=== PATIENT | female | born 1980 | race Caucasian/White ===

== ENCOUNTER 2020-02-28 13:12 | Emergency (ER) | payer OTHER, SELFPAY ==
[2020-02-28 13:22] VITALS: BP 123/79; PULSE 119; RESP 24; TEMP 37.2; O2SAT 97
[2020-02-28 14:05] LABS: Basophils Absolute Auto 0.03 K/mm3 (0.00-0.10); Basophils Percent Auto 0.4 % (0.0-1.0); Eosinophils Absolute Auto 0.18 K/mm3 (0.02-0.50); Eosinophils Percent Auto 2.6 % (1.0-6.0); Hematocrit 30.4 % (35.0-49.0); Hemoglobin 10.1 g/dL (12.0-15.0); Immature Granulocyte Absolute 0.01 K/mm3 (0.00-0.00); Immature Granulocyte Percent A 0.1 % (0.0-0.0); Lymphocytes Absolute Auto 3.23 K/mm3 (1.10-4.50); Lymphocytes Percent Auto 47.3 % (18.0-42.0); Mean Corpuscular HGB Conc 33.2 g/dL (32.0-36.0); Mean Corpuscular Hemoglobin 27.7 pg (27.0-31.0); Mean Corpuscular Volume 83.5 fL (78.0-102.0); Mean Platelet Volume 8.5 fl (9.2-11.8); Monocytes Percent Auto 7.3 % (2.0-11.0); Neutrophils Absolute Auto 2.9 K/mm3 (1.7-7.2); Neutrophils Percent Auto 42.3 % (50.0-70.0); Platelet Count Result 182 K/mm3 (150-420); Red Blood Count 3.64 M/mm3 (4.20-5.40); Red Cell Distribution Width 14.5 % (11.6-14.4); White Blood Count 6.8 K/mm3 (4.8-10.8)
[2020-02-28 14:30] LABS: Acetaminophen 2 ug/mL (10-30); Alanine Aminotransferase 24 U/L (14-59); Albumin Level 3.2 g/dL (3.4-5.0); Alkaline Phosphatase 63 U/L (46-116); Anion Gap 13.7 mmol/L (7-16); Aspartate Amino Transferase 30 U/L (15-37); Bilirubin,Total < 0.1 mg/dL (0.00-1.00); Blood Urea Nitrogen 11 mg/dL (7-18); Calcium 8.2 mg/dL (8.5-10.1); Carbon Dioxide 25 mmol/L (21-32); Chloride 106 mmol/L (98-108); Estimated Glomerular Filt Rate > 60; Ethanol < 3 mg/dL (0-6); Glucose 86 mg/dL (70-99); Osmolality Calculated 290 mOsm/kg (285-295); Potassium 3.7 mmol/L (3.5-5.1); Salicylate 0.8 mg/dL (2.8-20.0); Sodium 141 mmol/L (136-145); Thyroid Stimulating Hormone 1.79 uIU/mL (0.36-3.74); Total Protein 6.8 g/dL (6.4-8.2)
--- NOTE | 2020-02-28 14:32 | PC.NURSE ---
THIS RN IN TO ROOM TO SEE ABOUT COLLECTING URINE. PT TAKES TWO ASSIST TO AMBULATE. CONTINUES TO DENY DRUG USE, BUT FALLS ASLEEP WHILE STANDING.
[2020-02-28 14:46] LABS: Add Urine Microscopic? YES; Appearance Urine Sl Cloudy (Clear); Bilirubin Urine Negative (Negative); Blood Urine 1+ (Negative); Color Urine Yellow (Yellow); Glucose Urine UA Negative (Negative); Ketones Urine Negative (Negative); Leukocyte Esterase Ur 2+ LEU/UL (Negative); Nitrate Urine Negative (Negative); Protein Urine Negative (Negative); Urobilinogen Urine 0.2 mg/dL (0.2-1.0); pH Urine 5.5 (5.0-8.0)
--- NOTE | 2020-02-28 14:46 | PC.NURSE ---
PT OUT IN HALLWAY STATING THAT SHE WANTS TO LEAVE. PT ASKS FOR A SANDWICH TO EAT. ERP AT BEDSIDE TO TALK WITH PATIENT AGAIN, PT STATES THAT SHE IS NOT AFRAID OF FALLING AND THAT SHE WILL LEAVE AND GO STAY WITH A FRIEND. PT CONTINUES TO DENY SI/HI
[2020-02-28 14:52] LABS: Mucus Urine Moderate /lpf; RBC Urine 0-2 /hpf (0-2); Squamous Epithelial Cell Urine Moderate /hpf (Few)
[2020-02-28 14:53] LABS: Amphetamine Screen Urine Positive (Negative); Bacteria Urine 2+ /hpf; Barbiturate Screen Urine Positive (Negative); Benzodiazepines Screen Urine Negative (Negative); Cannabinoid Screen Urine Negative (Negative); Cocaine Screen Urine Negative (Negative); Methadone Screen Urine Negative (Negative); Opiate Screen Urine Positive (Negative); Phencyclidine Screen Urine Negative (Negative)
--- NOTE | 2020-02-28 15:13 | ED.PSYCH ---
HPI - Psych General Chief Complaint: Psychiatric Symptoms Stated Complaint: ambulance Source: patient Mode of arrival: ambulatory Limitations: clinical condition History of Present Illness HPI Narrative: Nurse's note reviewed. Mother wants pt. evaluated; unusual behavior. Wondering if she's on LSD. On initial interview pt. sitting up, nods off to sleep in mid-sentence, easily awoken by repeating the question. Initially starts to answer question but then rapidly talks about unrelated things before nodding off after 15 - 20 seconds. It's as if she's dropping off into a dream state. States she's very tired....couldn't sleep last night. States she got in an argument with her mother this AM. The police came. She was not arrested. Pt denies taking LSD or drugs. Released from long-term 2 days ago. Denies thoughts of suicide. Pt. states she sees people that aren't there. History of same: No Related Data Home Medications Medication Instructions Recorded Confirmed carisoprodol 350 mg PO TID 02/28/20 02/28/20 Allergies Allergy/AdvReac Type Severity Reaction Status Date / Time trazodone Allergy Intermediate hives, Unverified 01/23/19 11:11 breathing, makes her mean! propoxyphene Allergy Mild N/V, hives Unverified 01/23/19 11:11 buspirone Allergy Unknown Verified 02/27/18 16:17 celecoxib Allergy Unknown hives, n/v Verified 01/23/19 11:11 cyclobenzaprine Allergy Unknown Verified 02/27/18 16:18 divalproex sodium Allergy Unknown Discomfort Verified 08/11/19 15:30 erythromycin base Allergy Unknown Verified 08/11/19 15:30 gabapentin Allergy Unknown Verified 12/31/17 16:04 haloperidol Allergy Unknown Verified 08/11/19 15:30 hydroxyzine Allergy Unknown Verified 08/11/19 15:30 ibuprofen Allergy Unknown Rash Verified 08/11/19 15:30 ketorolac Allergy Unknown Verified 02/27/18 16:19 latex Allergy Unknown Verified 01/13/15 13:41 levetiracetam Allergy Unknown rash Verified 08/11/19 15:30 (moderate) metaxalone Allergy Unknown break out, Verified 01/23/19 11:11 cannot breathe nalbuphine Allergy Unknown Rash Verified 08/11/19 15:30 naproxen Allergy Unknown Rash Verified 08/11/19 15:30 NSAIDS (Non-Steroidal Allergy Unknown Rash Verified 08/11/19 15:30 Anti-Inflamma risperidone Allergy Unknown Confusion Verified 08/11/19 15:30 (moderate) sulfamethizole Allergy Unknown yeast Verified 08/11/19 15:30 infection (mild) sumatriptan Allergy Unknown hives Unverified 01/23/19 11:11 tramadol Allergy Unknown Verified 07/16/18 16:20 trimethoprim Allergy Unknown yeast Verified 08/11/19 15:30 infection (mild) diclofenac AdvReac Mild GI UPSET Unverified 01/23/19 11:11 lisinopril AdvReac Mild COUGHING Unverified 01/23/19 11:11 ondansetron AdvReac Mild sob Unverified 01/23/19 11:11 HYDROXYZINE PAMOATE Allergy Unknown throat Uncoded 01/23/19 11:11 swells shut Review of Systems Review of Systems: ROS unobtainable: Yes unobtainable due to mental status (Pt falling asleep, agitated with questioning. ) Constitutional: Constitutional: Denies chills and Denies fever(s) PMFSH Past Medical History Medical History Anxiety disorder, unspecified Bipolar depression DVT (deep venous thrombosis) Encephalopathy probably due to drug overdose. Fibromyalgia Finger fracture, right Multiple sclerosis Surgical History Surgical History Hx of cholecystectomy Family History Family History Sibling Hypertension Grandparent Cerebrovascular accident Family history of malignant neoplasm of breast Other Diabetes mellitus Family history of arthritis Family history of malignant neoplasm Family history of multiple sclerosis Social History Social History Smoking status: Jhonatan
== END 2020-02-28 15:20 | disposition left against medical advice (07) ==
PROVIDERS: Emergency Provider Family Medicine
DX: F19.959 Other psychoactive substance use, unspecified with psychoactive substance-induced psychotic disorder, unspecified (principal); R44.3 Hallucinations, unspecified; Z72.820 Sleep deprivation
CPT/HCPCS: 36415; 80053; 80307; 81001; 84443; 85025; 87077; 87086; 87088; 99283

== ENCOUNTER 2020-02-29 20:46 | Emergency (ER) | payer OTHER, SELFPAY ==
[2020-02-29 21:01] VITALS: BP 140/55; PULSE 94; RESP 14; TEMP 36.1; O2SAT 99
--- NOTE | 2020-02-29 21:34 | ED.LOWEXIN ---
HPI - Extremity Injury (Lower) General Chief Complaint: Extremity Injury, Lower Stated Complaint: pain in left leg Source: patient Mode of arrival: ambulatory Limitations: no limitations History of Present Illness HPI Narrative: this is a 39-year-old female presents with some pain in her right posterior upper thigh with a small punctate lesion with a surrounding area of erythema that is warm red and tender to touch, patient does have a history of DVT /PE and currently on Eliquis. There is a well-demarcated area of redness around the posterior right upper thigh. Currently the patient is afebrile with some pain in the posterior thigh has a history of chronic narcotic abuse. Onset (ago): day(s) Injury: Right: thigh ( Warmth and tenderness with erythema) Severity: moderate Severity scale (1-10): 6 Relieving factors: nothing Exacerbating factors: nothing Related Data Home Medications Medication Instructions Recorded Confirmed carisoprodol 350 mg PO TID 02/28/20 02/29/20 Allergies Allergy/AdvReac Type Severity Reaction Status Date / Time trazodone Allergy Intermediate hives, Unverified 01/23/19 11:11 breathing, makes her mean! propoxyphene Allergy Mild N/V, hives Unverified 01/23/19 11:11 buspirone Allergy Unknown Verified 02/27/18 16:17 celecoxib Allergy Unknown hives, n/v Verified 01/23/19 11:11 cyclobenzaprine Allergy Unknown Verified 02/27/18 16:18 divalproex sodium Allergy Unknown Discomfort Verified 08/11/19 15:30 erythromycin base Allergy Unknown Verified 08/11/19 15:30 gabapentin Allergy Unknown Verified 12/31/17 16:04 haloperidol Allergy Unknown Verified 08/11/19 15:30 hydroxyzine Allergy Unknown Verified 08/11/19 15:30 ibuprofen Allergy Unknown Rash Verified 08/11/19 15:30 ketorolac Allergy Unknown Verified 02/27/18 16:19 latex Allergy Unknown Verified 01/13/15 13:41 levetiracetam Allergy Unknown rash Verified 08/11/19 15:30 (moderate) metaxalone Allergy Unknown break out, Verified 01/23/19 11:11 cannot breathe nalbuphine Allergy Unknown Rash Verified 08/11/19 15:30 naproxen Allergy Unknown Rash Verified 08/11/19 15:30 NSAIDS (Non-Steroidal Allergy Unknown Rash Verified 08/11/19 15:30 Anti-Inflamma risperidone Allergy Unknown Confusion Verified 08/11/19 15:30 (moderate) sulfamethizole Allergy Unknown yeast Verified 08/11/19 15:30 infection (mild) sumatriptan Allergy Unknown hives Unverified 01/23/19 11:11 tramadol Allergy Unknown Verified 07/16/18 16:20 trimethoprim Allergy Unknown yeast Verified 08/11/19 15:30 infection (mild) diclofenac AdvReac Mild GI UPSET Unverified 01/23/19 11:11 lisinopril AdvReac Mild COUGHING Unverified 01/23/19 11:11 ondansetron AdvReac Mild sob Unverified 01/23/19 11:11 HYDROXYZINE PAMOATE Allergy Unknown throat Uncoded 01/23/19 11:11 swells shut Review of Systems Review of Systems: All systems reviewed & are unremarkable except as noted in HPI and below PMFSH Past Medical History Medical History Anxiety disorder, unspecified Bipolar depression DVT (deep venous thrombosis) Encephalopathy probably due to drug overdose. Fibromyalgia Finger fracture, right Multiple sclerosis Surgical History Surgical History Hx of cholecystectomy Family History Family History Sibling Hypertension Grandparent Cerebrovascular accident Family history of malignant neoplasm of breast Other Diabetes mellitus Family history of arthritis Family history of malignant neoplasm Family history of multiple sclerosis Social History Social History Smoking status: Current every day smoker Alcohol intake: current Exam Const: General: no acute distress and alert Orientation/consciousn
[2020-02-29] MEDS: KETOROLAC (*BKC) 60 MG/2 ML VIAL IM (21:40)
[2020-02-29] MEDS: LIDOCAINE HCL 1% LOCAL INJ 20 ML VIAL (21:54)
[2020-02-29] MEDS: cefTRIAXone 1 GM VIAL IM (21:54)
[2020-02-29 21:59] VITALS: RESP 14; O2SAT 100
== END 2020-02-29 22:00 | disposition home or self-care (01) ==
PROVIDERS: Emergency Provider Emergency Medicine; PCP Internal Medicine
DX: L03.115 Cellulitis of right lower limb (principal)
CPT/HCPCS: 96372; 99283; 99284; J0696; J1885

== ENCOUNTER 2020-04-16 21:42 | Emergency (ER) | payer OTHER, SELFPAY ==
--- NOTE | ~2020-04-16 | CT_ITS ---
EXAMINATION: CTA chest PE protocol DATE: 04/17/2020 08:50 CDT INDICATION: Calf pain. Shortness of breath. Positive d-dimer study. TECHNIQUE: Computed tomographic angiography (CTA) of the chest was performed with 100 mL Omnipaque-35 0 intravenous contrast. The dose-length product was 328.93 mGy-cm. Maximum intensity projection 3D-re constructions of the aorta and other arteries were constructed by the technologist on a separate work station. Automated exposure control and iterative reconstruction technique were employed. COMPARISON: CT dated 04/26/2019 FINDINGS: Study is limited due to suboptimal opacification of the pulmonary arteries. No definite lar ge central pulmonary embolism. Smaller peripheral pulmonary embolism cannot be excluded. No significa nt pleural or pericardial effusion. Heart size normal. No evidence for aortic aneurysm or dissection. No thoracic lymphadenopathy. No focal airspace consolidation. There is dependent atelectasis. No end obronchial lesions. There is mild thickening of the distal esophagus, suspicious for esophagitis. IMPRESSION: 1. Mild thickening of the distal esophagus, suspicious for esophagitis. 2: No evidence for pulmonary embolism or acute cardiopulmonary disease. Reviewed, dictated and finalized at location A.
[2020-04-16 22:05] VITALS: BP 113/69; PULSE 95; RESP 20; TEMP 37.5; O2SAT 100
--- NOTE | 2020-04-16 22:26 | ED.EXTPRO ---
HPI - Extremity Problem General Chief complaint: Extremity Problem,Nontraumatic Stated complaint: knee swelling/pain Time Seen by Provider: 04/16/20 22:10 Source: patient Mode of arrival: ambulatory Limitations: no limitations History of Present Illness HPI Narrative: 39-year-old woman with a history of chronic and frequent pain complaints comes to the ER today complaining of right calf pain. She states it started on waking this morning. She states that she has also been feeling short of breath and had a mild cough. She denies fever. She states the pain is so severe that she has been having vomiting. She states that she has had a DVT and pulmonary emboli in the past and was prescribed Eliquis however she has not taken it for months. Patient states that she has not received approval from her insurance company as of yet for Eliquis. She states that she cannot take warfarin and Xarelto. On further interview patient revealed that she takes Fioricet with codeine 4 times a day in addition to Tylenol. MD Complaint: extremity pain Onset (ago): hour(s) (12+) Pain Consistency: constant Location: right and lower extremity Severity scale (1-10): >10 Radiation: none Relieving factors: nothing and other ( She states she is taking so much tylenol she is afraid she is going to injure her liver.) Exacerbating factors: weight bearing and palpation Associated symptoms: chest pain and shortness of breath Context: history of DVT Related Data Home Medications Medication Instructions Recorded Confirmed amitriptyline 150 mg tablet 300 mg PO DAILY tablet 04/07/20 04/16/20 Allergies Allergy/AdvReac Type Severity Reaction Status Date / Time trazodone Allergy Intermediate hives, Unverified 01/23/19 11:11 breathing, makes her mean! propoxyphene Allergy Mild N/V, hives Unverified 01/23/19 11:11 buspirone Allergy Unknown Difficulty Verified 04/17/20 00:44 Breathing celecoxib Allergy Unknown hives, n/v Verified 01/23/19 11:11 cyclobenzaprine Allergy Unknown Dizziness Verified 04/17/20 00:44 divalproex sodium Allergy Unknown Discomfort Verified 08/11/19 15:30 erythromycin base Allergy Unknown Unknown Verified 04/17/20 00:44 gabapentin Allergy Unknown Other Verified 04/17/20 00:44 haloperidol Allergy Unknown Unknown Verified 04/17/20 00:44 hydroxyzine Allergy Unknown Unknown Verified 04/17/20 00:44 ibuprofen Allergy Unknown Rash Verified 08/11/19 15:30 ketorolac Allergy Unknown Rash Verified 04/17/20 00:44 latex Allergy Unknown Unknown Verified 04/17/20 00:44 levetiracetam Allergy Unknown rash Verified 08/11/19 15:30 (moderate) metaxalone Allergy Unknown break out, Verified 01/23/19 11:11 cannot breathe nalbuphine Allergy Unknown Rash Verified 08/11/19 15:30 naproxen Allergy Unknown Rash Verified 08/11/19 15:30 NSAIDS (Non-Steroidal Allergy Unknown Rash Verified 08/11/19 15:30 Anti-Inflamma risperidone Allergy Unknown Confusion Verified 08/11/19 15:30 (moderate) sulfamethizole Allergy Unknown yeast Verified 08/11/19 15:30 infection (mild) sumatriptan Allergy Unknown hives Unverified 01/23/19 11:11 tramadol Allergy Unknown Unknown Verified 04/17/20 00:44 trimethoprim Allergy Unknown yeast Verified 08/11/19 15:30 infection (mild) diclofenac AdvReac Mild GI UPSET Unverified 01/23/19 11:11 lisinopril AdvReac Mild COUGHING Unverified 01/23/19 11:11 ondansetron AdvReac Mild sob Unverified 01/23/19 11:11 HYDROXYZINE PAMOATE Allergy Unknown throat Uncoded 01/23/19 11:11 swells shut Review of Systems Constitutional: Constitutional: Denies chills, Denies fever(s) and Denies weakness ENT: Denies dysphagia, Denies nasal congestion and Denies sore throat Cardiovascular: Cardiovascular: Reports chest pain and Denies radiating jaw, neck or arm pain Respiratory: Respiratory: Reports cough, Reports dyspnea and Denies wheezing Gastrointestinal: Gastrointestinal: Reports abdominal pa
[2020-04-16] MEDS: PROMETHAZINE HCL 25 MG/ML AMPUL IM (22:27)
[2020-04-16] MEDS: KETOROLAC (*BKC) 60 MG/2 ML VIAL IM (22:27)
[2020-04-16 22:38] LABS: Basophils Absolute Auto 0.03 K/mm3 (0.00-0.10); Basophils Percent Auto 0.4 % (0.0-1.0); Eosinophils Absolute Auto 0.38 K/mm3 (0.02-0.50); Eosinophils Percent Auto 4.4 % (1.0-6.0); Hematocrit 30.1 % (35.0-49.0); Hemoglobin 9.8 g/dL (12.0-15.0); Immature Granulocyte Absolute 0.03 K/mm3 (0.00-0.00); Immature Granulocyte Percent A 0.4 % (0.0-0.0); Lymphocytes Absolute Auto 3.02 K/mm3 (1.10-4.50); Lymphocytes Percent Auto 35.4 % (18.0-42.0); Mean Corpuscular HGB Conc 32.6 g/dL (32.0-36.0); Mean Corpuscular Hemoglobin 27.7 pg (27.0-31.0); Mean Platelet Volume 9.1 fl (9.2-11.8); Monocytes Absolute Auto 0.58 K/mm3 (0.10-0.90); Monocytes Percent Auto 6.8 % (2.0-11.0); Neutrophils Absolute Auto 4.5 K/mm3 (1.7-7.2); Neutrophils Percent Auto 52.6 % (50.0-70.0); Platelet Count Result 203 K/mm3 (150-420); Red Blood Count 3.54 M/mm3 (4.20-5.40); Red Cell Distribution Width 14.8 % (11.6-14.4); White Blood Count 8.5 K/mm3 (4.8-10.8)
[2020-04-16 22:55] VITALS: BP 120/60; PULSE 70; RESP 18
[2020-04-16 22:56] VITALS: O2SAT 100
[2020-04-16 22:57] LABS: Acetaminophen 11 ug/mL (10-30); Alanine Aminotransferase 49 U/L (14-59); Alkaline Phosphatase 82 U/L (46-116); Anion Gap 12.3 mmol/L (7-16); Aspartate Amino Transferase 15 U/L (15-37); Blood Urea Nitrogen 9 mg/dL (7-18); Calcium 8.2 mg/dL (8.5-10.1); Carbon Dioxide 25 mmol/L (21-32); Chloride 103 mmol/L (98-108); D Dimer 1.42 mg/L (0.19-0.50); Estimated Glomerular Filt Rate > 60; Glucose 112 mg/dL (70-99); Osmolality Calculated 283 mOsm/kg (285-295); Potassium 3.3 mmol/L (3.5-5.1); Sodium 137 mmol/L (136-145); Total Protein 6.9 g/dL (6.4-8.2)
[2020-04-16 23:08] LABS: Bilirubin,Total < 0.1 mg/dL (0.00-1.00)
--- NOTE | 2020-04-16 23:23 | PC.NURSE ---
patient requesting some food & Pepsi, patient started cussing when explained she couldn't until test were completed with having a potential blood clot. Offered for patient to sign out AMA and go to another hospital. Patient very belligerent. Nurse requested urine, patient cussing & screaming at staff I don't feel good and you don't care. I am hungry & you don't care. I am not and I have had a tubal, I think this is BS,
--- NOTE | 2020-04-16 23:30 | PC.NURSE ---
Staff trying IV, patient screaming moving during stick, states I am scared of needles, I want Rod to do it. Explain production underwriter or Sabina only available. Corn Cooker got #20 inserted, patient screaming it hurts take it out, take it out. IV removed, Sabina working with patient
[2020-04-16 23:39] LABS: Add Urine Microscopic? YES; Appearance Urine Sl Cloudy (Clear); Bilirubin Urine Negative (Negative); Blood Urine Negative (Negative); Color Urine Yellow (Yellow); Glucose Urine UA Negative (Negative); Ketones Urine Negative (Negative); Leukocyte Esterase Ur 1+ (Negative); Nitrate Urine Negative (Negative); Protein Urine Negative (Negative); Specific Grav Ur 1.015 (1.010-1.020); Urobilinogen Urine 0.2 mg/dL (0.2-1.0)
[2020-04-16 23:49] LABS: Urine Pregnancy Test Negative
[2020-04-16 23:50] LABS: Pregnancy On Board Control Positive; Specific Gravity Ur 1.015 (1.010-1.035)
[2020-04-16 23:50] LABS: Bacteria Urine 1+ /hpf; RBC Urine 0-2 /hpf (0-2); Squamous Epithelial Cell Urine Many /hpf (Few)
[2020-04-16 23:53] LABS: Amphetamine Screen Urine Negative (Negative); Barbiturate Screen Urine Positive (Negative); Benzodiazepines Screen Urine Negative (Negative); Cannabinoid Screen Urine Positive (Negative); Cocaine Screen Urine Negative (Negative); Methadone Screen Urine Negative (Negative); Opiate Screen Urine Positive (Negative); Phencyclidine Screen Urine Negative (Negative)
[2020-04-17] VITALS (12 sets, daily range): BP systolic 96–135; BP diastolic 45–77; PULSE 66–90; RESP 16–18; TEMP 36.4–37.1; O2SAT 95–100
[2020-04-17] MEDS: SODIUM CHLORIDE 0.9% IV 1,000 ML 999 ML IV CONT (00:17)
--- NOTE | 2020-04-17 00:48 | PC.NURSE ---
patient on cell phone laughing and talking to her boyfriend
--- NOTE | 2020-04-17 00:51 | PC.NURSE ---
results here, calling [facility] for possible tranfer
--- NOTE | 2020-04-17 00:53 | ECG_ITS ---
Measurements Intervals Crowder Rate: 84 P: 46 AL: 144 QRS: 29 QRSD: 84 T: 30 QT: 362 QTc: 428 Interpretive Statements SINUS RHYTHM LOW QRS VOLTAGE IN PRECORDIAL LEADS BASELINE ARTIFACT- I, II, III BORDERLINE ECG Electronically Signed On 04-18-2020 8:15:01 CDT by Hilton Madden D.O.
--- NOTE | 2020-04-17 01:02 | PC.NURSE ---
EKG collected, patient requesting dilaudid for pain & supper
[2020-04-17 01:10] LABS: Partial Thromboplastin Time 24.5 SEC (22.3-31.6)
--- NOTE | 2020-04-17 01:10 | PC.NURSE ---
speaking to [facility]
[2020-04-17] MEDS: ENOXAPARIN 100 MG/ML SYRINGE 70 MG SUB-Q ×2 (01:21→13:55)
[2020-04-17] MEDS: HYDROMORPHONE HCL 2 MG/ML VIAL 0.5 MG IV PUSH ×2 (01:22→14:42)
--- NOTE | 2020-04-17 01:46 | PC.NURSE ---
lovenox 70mg sub given RLQ abd Dilaudid 0.5mg IVP given in RAC
--- NOTE | 2020-04-17 01:58 | PC.NURSE ---
eating turkey sandwich, chips & drinking pepsi. On cell phone talking & laughing
--- NOTE | 2020-04-17 02:42 | PC.NURSE ---
patient walked out of ER, typewriter mechanic told her she couldn't leave. states I have marijuana I need to give my family
--- NOTE | 2020-04-17 02:49 | PC.NURSE ---
security notified of patient walking out to car to see family, to do parking lot check
--- NOTE | 2020-04-17 02:59 | PC.NURSE ---
patient return to ER room 3. [facility] called for a bed will be hours before one available
--- NOTE | 2020-04-17 08:27 | PC.NURSE ---
patient resting quietly, cont to wait for bed at [facility]. Placing patient on med/surg in ER Hold, report given to 2nd floor. Patient eating breakfast
--- NOTE | 2020-04-17 09:00 | PC.NURSE ---
ate 20% of breakfast, drinking pepsi
--- NOTE | 2020-04-17 09:15 | PC.NURSE ---
Patient brought up to floor from ER as ER hold via wheelchair by this nurse. Patient able to transferred from wheelchair to bed with no assist. Resting with hob elevated. Patient finished breakfast in ER. Denies any need at present. Call light and belongings provided. Call marroquin at side.
--- NOTE | 2020-04-17 11:30 | PC.NURSE ---
Patient sleeping soundly in bed with hob elevated. shows no signs of pain or distress. Call light at side.
--- NOTE | 2020-04-17 12:15 | PC.NURSE ---
Lunch tray delivered. Patient sleeping quietly in bed. Call light at side. No distress noted.
--- NOTE | 2020-04-17 12:45 | PC.NURSE ---
Patient ate 10% of lunch, States she is just not hungry. Drank 360ml P.O. Resting quietly in bed on left side, hob elevated. Denies any needs at present.
--- NOTE | 2020-04-17 16:00 | PC.NURSE ---
Patient noted to have left floor to smoke. Pt. outside of physical therapy entrance. This nurse bought patient back inside. Non-smoking policy reiterated to patient. Patient states she is sorry, she didn't realize she could not go outside. This nurse notified patient if she was to leave floor again without permission it would be considered an AMA. DR. Whelan notified of patient leaving floor. Patient states understanding and states it will not happen again. Patient offered nicotine patch, declined at this time.
[2020-04-17] MEDS: HYDROCORTISONE 1% 30 GM CREAM 1 APPLIC TOPICAL (17:14)
[2020-04-17] MEDS: CALCIUM CARBONATE (TUMS) 500 MG (200 MG ELEMENTAL) PO (17:14)
--- NOTE | 2020-04-17 17:40 | PC.NURSE ---
Patient ate 25% of supper. Resting in bed with hob elevated. Call light at side. Patient stating foot is hurting again, requesting more pain medication. MD notified.
--- NOTE | 2020-04-17 18:00 | PC.NURSE ---
Patient provided with items to shower. IV site covered. Patient required no assist to shower.
--- NOTE | 2020-04-17 20:02 | PC.NURSE ---
pt is in tears stating the pain medication she received was not helping, Dr Whelan informed and no new orders given
--- NOTE | 2020-04-17 21:12 | PC.NURSE ---
pt made aware of Dr decision to not change pain medication, pt agreed with decision
--- NOTE | 2020-04-17 22:14 | PC.NURSE ---
pt given sandwich, fruit cup, and cottage cheese, denies any other needs at this time
--- NOTE | 2020-04-17 23:55 | PC.NURSE ---
Berna from [facility] called with bed for pt and number to give report.
[2020-04-18] VITALS: BP 100/60; PULSE 78; RESP 20; TEMP 36.8; O2SAT 97
--- NOTE | 2020-04-18 | PC.NURSE ---
Report called to Mariah at [facility]
--- NOTE | 2020-04-18 00:15 | PC.NURSE ---
Call placed to [place] [employer] to page out ambulance for transfer.
--- NOTE | 2020-04-18 00:45 | PC.NURSE ---
pt ambulated to ems stretcher, discharged in stable condition via [facility]
--- NOTE | 2020-04-18 00:49 | PC.NURSE ---
[id number] Dr. Whelan notified of pt's request for her amitriptyline as she said she cant sleep without it. Orders received and noted.
[2020-04-18 00:54] VITALS: BP 100/60; PULSE 78; RESP 20; TEMP 36.8; O2SAT 97
== END 2020-04-18 00:45 | disposition short-term general hospital (02) ==
PROVIDERS: Emergency Medicine; Emergency Provider Family Medicine; PCP Internal Medicine
DX: R06.00 Dyspnea, unspecified (principal); Z86.711 Personal history of pulmonary embolism; M79.661 Pain in right lower leg; R79.1 Abnormal coagulation profile
CPT/HCPCS: 36415; 71275; 80053; 80307; 81001; 81025; 85025; 85380; 85610; 85730; 87086; 93005; 96361; 96372; 96374; 96376; 99285; A9270; J1170; J1650; J1885; J2550; J7030; Q9965

== ENCOUNTER 2020-05-31 03:44 | Emergency (ER) | payer OTHER, SELFPAY ==
[2020-05-31] VITALS (9 sets, daily range): BP systolic 95–132; BP diastolic 56–66; PULSE 62–100; RESP 14–18; TEMP 36.4–36.8; O2SAT 95–99
[2020-05-31] MEDS: NALOXONE HCL INJ 2 MG/2 ML AMP IM ×2 (03:50→04:15)
--- NOTE | 2020-05-31 03:50 | ED.OVERDOSE ---
HPI - Overdose General Chief Complaint: Overdose <Luis Chung MD - Last Filed: 06/01/20 11:49> Stated Complaint: overdose <Luis Chung MD - Last Filed: 06/01/20 11:49> Time Seen by Provider: 05/31/20 03:45 <Luis Chung MD - Last Filed: 06/01/20 11:49> Source: patient, EMS and RN notes reviewed <Luis Chung MD - Last Filed: 06/01/20 11:49> Mode of arrival: ambulatory <Luis Chung MD - Last Filed: 06/01/20 11:49> Limitations: no limitations <Luis Chung MD - Last Filed: 06/01/20 11:49> History of Present Illness HPI Narrative: patient found back seat of a 4 door pickup. She just returned from Hospital where she had been given prescription for kidney stone. She apparently took all of her narcotics at once. She is initially unresponsive but then combative when she was moved. She was given 2 mg of Narcan intranasally. <Luis Chung MD - Last Filed: 06/01/20 11:49> MD complaint: accidental overdose <Luis Chung MD - Last Filed: 06/01/20 11:49> Onset (ago): unknown <Luis Chung MD - Last Filed: 06/01/20 11:49> How Overdose Was Discovered: family/friend present at time <Luis Chung MD - Last Filed: 06/01/20 11:49> Context: Accidental Overdose: wanted to get high <Luis Chung MD - Last Filed: 06/01/20 11:49> Related Data Home Medications: Home Medications Medication Instructions Recorded Confirmed No Home Medications 05/31/20 05/31/20 <Luis Chung MD - Last Filed: 06/01/20 11:49> Allergies/Adverse Reactions: Allergies Allergy/AdvReac Type Severity Reaction Status Date / Time buspirone Allergy Hives Verified 05/31/20 05:32 celecoxib Allergy Hives Verified 05/31/20 05:32 cyclobenzaprine Allergy Hives Verified 05/31/20 05:32 diclofenac Allergy Difficulty Verified 05/31/20 05:32 Swallowing divalproex sodium Allergy Hives Verified 05/31/20 05:32 erythrosine sodium Allergy Hives Verified 05/31/20 05:32 gabapentin Allergy Hives Verified 05/31/20 05:32 haloperidol [From Haldol] Allergy Hives Verified 05/31/20 05:32 hydroxyzine Allergy Hives Verified 05/31/20 05:32 ibuprofen [From Motrin] Allergy Hives Verified 05/31/20 05:32 ketorolac [From Toradol] Allergy Hives Verified 05/31/20 05:32 levetiracetam Allergy Hives Verified 05/31/20 05:32 lisinopril Allergy Dyspnea / Verified 05/31/20 05:32 SOB metaxalone Allergy Hives Verified 05/31/20 05:32 nalbuphine Allergy Hives Verified 05/31/20 05:32 naproxen Allergy Hives Verified 05/31/20 05:32 NSAIDS (Non-Steroidal Allergy Hives Verified 05/31/20 05:32 Anti-Inflamma ondansetron Allergy Irritable Verified 05/31/20 05:32 propoxyphene Allergy Hives Verified 05/31/20 05:32 risperidone Allergy Hives Verified 05/31/20 05:32 Sulfa (Sulfonamide Allergy Hives Verified 05/31/20 05:32 Antibiotics) sumatriptan Allergy Hives Verified 05/31/20 05:32 tramadol Allergy Anxiety Verified 05/31/20 05:32 trazodone Allergy Hives Verified 05/31/20 05:32 <Luis Chung MD - Last Filed: 06/01/20 11:49> Review of Systems Review of Systems: Narrative: Unable to obtain ROS due to intoxication <Luis Chung MD - Last Filed: 06/01/20 11:49> [facility] Past Medical History Medical History: Medical History (Updated 06/01/20 @ 00:00 by Mario Reynolds) Anxiety disorder Bipolar depression Encephalopathy Due to drug overdose Fibromyalgia History of DVT (deep vein thrombosis) Multiple sclerosis <Luis Chung MD - Last Filed: 06/01/20 11:49> Surgical History Surgical History: Surgical History (Updated 05/31/20 @ 07:21 by Luis Chung MD) History of cholecystectomy <Luis Chung MD - Last Filed: 06/01/20 11:49> Social History Social History: Social History (Updated 05/31/20 @ 07:22 by Luis Chung MD) Smoking status: Current every day smoker Alcohol intake: current Substance use: current Funez
[2020-05-31 05:13] LABS: Amphetamine Screen Urine Positive (Negative); Barbiturate Screen Urine Positive (Negative); Benzodiazepines Screen Urine Positive (Negative); Cannabinoid Screen Urine Positive (Negative); Cocaine Screen Urine Negative (Negative); Methadone Screen Urine Negative (Negative); Opiate Screen Urine Positive (Negative); Phencyclidine Screen Urine Negative (Negative)
--- NOTE | 2020-05-31 05:52 | PC.NURSE ---
0400 PATIENT arousing to painful stimuli, attempted IV x2 & Lab draw x2 patient combative with painful stimuli. aware. Narcan ordered.
--- NOTE | 2020-05-31 06:21 | PC.NURSE ---
PULLED CATH OUT
--- NOTE | 2020-05-31 07:44 | PC.NURSE ---
pt restless in bed. repositioned. rails ^
--- NOTE | 2020-05-31 08:08 | PC.NURSE ---
pt continues to sleep soundly, awakens easily. repositioned.
--- NOTE | 2020-05-31 09:19 | PC.NURSE ---
pt repostioned. continues to sleep soundly. awakens easily. denies pain. resp even and non-labored.
--- NOTE | 2020-05-31 11:00 | PC.NURSE ---
PT CARE IS ASSUMED AT THIS TIME, PT IN NO ACUTE DISTRESS - APPARENTLY PT IS FREE TO GO HOME WITH DISCHARGE PAPERS SOON SHE WAKES UP.
== END 2020-05-31 13:43 | disposition home or self-care (01) ==
PROVIDERS: Emergency Medicine; Emergency Provider Emergency Medicine; PCP Internal Medicine
DX: T50.901A Poisoning by unspecified drugs, medicaments and biological substances, accidental (unintentional), initial encounter (principal)
CPT/HCPCS: 80307; 96372; 99283; 99284; J2310

== ENCOUNTER 2020-07-19 20:11 | Emergency (ER) | payer OTHER, SELFPAY ==
[2020-07-19 20:37] VITALS: BP 114/85; PULSE 91; RESP 16; TEMP 37.1; O2SAT 99
--- NOTE | 2020-07-19 20:50 | ED.SKABFB ---
HPI - Skin/Abscess/Foreign Bdy General Chief complaint: Skin/Abscess/Foreign Body Stated complaint: lump in back of neck Source: patient Mode of arrival: ambulatory History of Present Illness HPI narrative: this is a 39-year-old female presents with some abscess on the right posterior neck it is nonfluctuant tender warm to touch started a couple weeks ago with no fever chills no shortness of breath. Onset (ago): week(s) Location: neck Severity: moderate Severity scale (1-10): 6 Quality: aching Pain Consistency: constant Relieving factors: none Exacerbating factors: none Associated symptoms: denies other symptoms Related Data Allergies Allergy/AdvReac Type Severity Reaction Status Date / Time trazodone Allergy Intermediate hives, Verified 06/03/20 16:29 breathing, makes her mean! propoxyphene Allergy Mild N/V, hives Verified 06/03/20 16:29 buspirone Allergy Unknown Difficulty Verified 06/03/20 16:29 Breathing celecoxib Allergy Unknown hives, n/v Verified 06/03/20 16:29 cyclobenzaprine Allergy Unknown Dizziness Verified 06/03/20 16:29 divalproex sodium Allergy Unknown Discomfort Verified 06/03/20 16:29 erythromycin base Allergy Unknown Unknown Verified 06/03/20 16:29 gabapentin Allergy Unknown Other Verified 06/03/20 16:29 haloperidol Allergy Unknown Unknown Verified 06/03/20 16:29 hydroxyzine Allergy Unknown Unknown Verified 06/03/20 16:29 ibuprofen Allergy Unknown Rash Verified 06/03/20 16:29 ketorolac Allergy Unknown Rash Verified 06/03/20 16:29 latex Allergy Unknown Unknown Verified 06/03/20 16:29 levetiracetam Allergy Unknown rash Verified 06/03/20 16:29 (moderate) metaxalone Allergy Unknown break out, Verified 06/03/20 16:29 cannot breathe nalbuphine Allergy Unknown Rash Verified 06/03/20 16:29 naproxen Allergy Unknown Rash Verified 06/03/20 16:29 NSAIDS (Non-Steroidal Allergy Unknown Rash Verified 06/03/20 16:29 Anti-Inflamma risperidone Allergy Unknown Confusion Verified 06/03/20 16:29 (moderate) sulfamethizole Allergy Unknown yeast Verified 06/03/20 16:29 infection (mild) sumatriptan Allergy Unknown hives Verified 06/03/20 16:29 tramadol Allergy Unknown Unknown Verified 06/03/20 16:29 trimethoprim Allergy Unknown yeast Verified 06/03/20 16:29 infection (mild) erythrosine sodium Allergy Hives Verified 06/03/20 16:29 Sulfa (Sulfonamide Allergy Hives Verified 06/03/20 16:29 Antibiotics) diclofenac AdvReac Mild GI UPSET Verified 06/03/20 16:29 lisinopril AdvReac Mild COUGHING Verified 06/03/20 16:29 ondansetron AdvReac Mild sob Verified 06/03/20 16:29 HYDROXYZINE PAMOATE Allergy Unknown Anaphylactic Uncoded 06/03/20 16:29 Shock Review of Systems Review of Systems: All systems reviewed & are unremarkable except as noted in HPI and below PMFSH Past Medical History Medical History Anxiety disorder Anxiety disorder, unspecified Bipolar depression Bipolar depression DVT (deep venous thrombosis) Encephalopathy probably due to drug overdose. Encephalopathy Due to drug overdose Fibromyalgia Fibromyalgia Finger fracture, right History of DVT (deep vein thrombosis) Multiple sclerosis Multiple sclerosis Pulmonary embolism Surgical History Surgical History History of cholecystectomy Hx of cholecystectomy Family History Family History Sibling Hypertension Grandparent Cerebrovascular accident Family history of malignant neoplasm of breast Other Diabetes mellitus Family history of arthritis Family history of malignant neoplasm Family history of multiple sclerosis Social History Social History Smoking status: Current every day smoker Alcohol intake: current Substance use: current Substance use type: marij
[2020-07-19] MEDS: cefTRIAXone 1 GM VIAL IM (20:57)
== END 2020-07-19 21:32 | disposition home or self-care (01) ==
PROVIDERS: Emergency Provider Emergency Medicine; PCP Internal Medicine
DX: L03.221 Cellulitis of neck (principal)
CPT/HCPCS: 96372; 99283; J0696

== ENCOUNTER 2021-01-22 14:21 | Emergency (ER) | payer OTHER, SELFPAY ==
[2021-01-22 14:39] VITALS: BP 113/85; PULSE 115; RESP 20; TEMP 36.3; O2SAT 97
--- NOTE | 2021-01-22 14:57 | ED.EAR ---
HPI - Ear Problem General Chief complaint: Ear Stated complaint: L ear pain, difficulty hearing History of Present Illness HPI Narrative: patient having pressure for pressure and a muffled sound in her left ear she has had ear wax buildup in the past but currently having pain and pressure with sinus congestion with no fever chills does have some nasal discharge and nasal stuffiness with a frontal sinus pressure. Complaint: ear pain Location: left ear Duration: constant Severity: moderate Relieving factors: nothing Exacerbating factors: nothing Related Data Allergies Allergy/AdvReac Type Severity Reaction Status Date / Time hydroxyzine Allergy Severe Anaphylactic Verified 01/22/21 15:01 Shock trazodone Allergy Intermediate hives, Verified 01/22/21 14:46 breathing, makes her mean! propoxyphene Allergy Mild N/V, hives Verified 01/22/21 14:46 buspirone Allergy Unknown Difficulty Verified 01/22/21 14:46 Breathing celecoxib Allergy Unknown hives, n/v Verified 01/22/21 14:46 erythromycin base Allergy Unknown Unknown Verified 01/22/21 14:46 haloperidol Allergy Unknown Unknown Verified 01/22/21 14:46 ibuprofen Allergy Unknown Rash Verified 01/22/21 14:46 ketorolac Allergy Unknown Rash Verified 01/22/21 14:46 latex Allergy Unknown Unknown Verified 01/22/21 14:46 levetiracetam Allergy Unknown rash Verified 01/22/21 14:46 (moderate) metaxalone Allergy Unknown break out, Verified 01/22/21 14:46 cannot breathe nalbuphine Allergy Unknown Rash Verified 01/22/21 14:46 naproxen Allergy Unknown Rash Verified 01/22/21 14:46 NSAIDS (Non-Steroidal Allergy Unknown Rash Verified 01/22/21 14:46 Anti-Inflamma risperidone Allergy Unknown Confusion Verified 01/22/21 14:46 (moderate) sulfamethizole Allergy Unknown yeast Verified 01/22/21 14:46 infection (mild) sumatriptan Allergy Unknown hives Verified 01/22/21 14:46 tramadol Allergy Unknown Unknown Verified 01/22/21 14:46 trimethoprim Allergy Unknown yeast Verified 01/22/21 14:46 infection (mild) erythrosine sodium Allergy Hives Verified 01/22/21 14:46 Sulfa (Sulfonamide Allergy Hives Verified 01/22/21 14:46 Antibiotics) diclofenac AdvReac Mild GI UPSET Verified 01/22/21 14:46 lisinopril AdvReac Mild COUGHING Verified 01/22/21 14:46 ondansetron AdvReac Mild sob Verified 01/22/21 14:46 cyclobenzaprine AdvReac Unknown Dizziness Verified 01/22/21 15:03 divalproex sodium AdvReac Unknown Discomfort Verified 01/22/21 15:03 Review of Systems Review of Systems: All systems reviewed & are unremarkable except as noted in HPI and below PMFSH Past Medical History Medical History (Updated 01/22/21 @ 15:00 by Quentin Starr MD) Anxiety disorder Anxiety disorder, unspecified Bipolar depression Bipolar depression DVT (deep venous thrombosis) Encephalopathy probably due to drug overdose. Encephalopathy Due to drug overdose Fibromyalgia Fibromyalgia Finger fracture, right History of DVT (deep vein thrombosis) Multiple sclerosis Multiple sclerosis Pulmonary embolism Surgical History Surgical History History of cholecystectomy Hx of cholecystectomy Family History Family History Sibling Hypertension Grandparent Cerebrovascular accident Family history of malignant neoplasm of breast Other Diabetes mellitus Family history of arthritis Family history of malignant neoplasm Family history of multiple sclerosis Social History Social History Smoking status: Current every day smoker Alcohol intake: current Substance use: current Substance use type: marijuana, painkillers and methamphetamine Gender identity (if verbalized by the patient): Female Exam Const: General: no acute distress Orientation/consciousness: patient oriented x3 HEN
[2021-01-22] MEDS: NEOMYCIN/POLYMYXIN/HYDROCORT OT SUSP 10 ML BTL (*BKC) 3 DROP EACH EAR (15:13)
[2021-01-22] MEDS: cefTRIAXone 1 GM VIAL IM (15:13)
== END 2021-01-22 15:15 | disposition home or self-care (01) ==
PROVIDERS: Emergency Provider Emergency Medicine; PCP Internal Medicine
DX: J01.00 Acute maxillary sinusitis, unspecified (principal); H66.92 Otitis media, unspecified, left ear
CPT/HCPCS: 96372; 99283; A9270; J0696

== ENCOUNTER 2021-02-03 15:51 | Emergency (ER) | payer OTHER, SELFPAY ==
[2021-02-03] VITALS (26 sets, daily range): BP systolic 89–148; BP diastolic 60–96; PULSE 70–106; RESP 14–26; TEMP 36.8; O2SAT 97–100
--- NOTE | ~2021-02-03 | XR_ITS ---
EXAMINATION: XR chest 1V portable EXAM DATE: 02/03/2021 16:43 INDICATION: Generalized chest pain, symptoms 3 days. Bilateral arm pain. History of blood clots. TECHNIQUE: Portable AP frontal chest x-ray was obtained. Comparison is made to prior examination from 09/28/2018. FINDINGS: The lungs are clear. There are no pleural effusions. The cardiomediastinal silhouette is within normal limits. There is no pneumothorax suspected. The bones and soft tissues are unremarkab le. IMPRESSION: No acute cardiopulmonary findings. Reviewed, dictated and finalized at location A.
--- NOTE | ~2021-02-03 | US_ITS ---
EXAMINATION: US venous doppler LE RT DATE: 02/03/2021 17:50 INDICATION: Right lower limb pain TECHNIQUE: Camilo scale images without and with compression and Doppler images of the right lower extre mity veins were obtained. COMPARISON: None FINDINGS: The peroneal vein is not visualized. The right common femoral vein, profunda femoral vein, femoral vein, popliteal vein, posterior tibial veins, and greater saphenous vein are patent. IMPRESSION: 1. Patent right lower extremity veins. No evidence of deep venous thrombosis. Peroneal vein not visua lized. Reviewed, dictated and finalized at location A. IMPRESSION: 1. Patent right lower extremity veins. No evidence of deep venous thrombosis. P eroneal vein not visualized.
--- NOTE | 2021-02-03 16:09 | ECG_ITS ---
Measurements Intervals Burt Rate: 80 P: 35 IN: 124 QRS: 22 QRSD: 78 T: 30 QT: 381 QTc: 441 Interpretive Statements SINUS RHYTHM NONSPECIFIC T-WAVE ABNORMALITY- ANTERIOR LEADS BASELINE ARTIFACT- I, II, III, AVR, AVL, AVF BORDERLINE ECG Electronically Signed On 02-03-2021 16:20:47 CDT by Hilton Madden D.O.
--- NOTE | 2021-02-03 16:09 | PC.NURSE ---
Patient upset and yelling in triage due to patient being asked to please put a mask on per hospital policy. Patient states I have asthma and I will get worse, I never have to wear a mask. I will leave or sit in the corner if you make me. Patient explained hospital policy and given hospital provided mask to wear. Patient angry at this time but placed mask over face.
--- NOTE | 2021-02-03 16:27 | ED.CHESTPAIN ---
HPI - Chest Pain General Chief Complaint: Chest Pain Stated Complaint: Chest Pain, Possible Blood Clots Time Seen by Provider: 02/03/21 16:08 Source: patient Mode of arrival: ambulatory Limitations: no limitations History of Present Illness HPI narrative: Patient is a 40-year-old female complaining of bilateral lower extremity pain right greater than the left, states that she has a history of blood clots especially on the right lower extremity and has been off her Eliquis for the past 2 weeks, because I ran out and I have not seen my doctor . Patient also complaining of chest pain, midsternal, nonradiating, dull. Denies any shortness of breath, nausea, vomiting, diaphoresis, fever or chills. Related Data Allergies Allergy/AdvReac Type Severity Reaction Status Date / Time hydroxyzine Allergy Severe Anaphylactic Verified 02/03/21 16:01 Shock trazodone Allergy Intermediate hives, Verified 02/03/21 16:01 breathing, makes her mean! propoxyphene Allergy Mild N/V, hives Verified 02/03/21 16:01 buspirone Allergy Unknown Difficulty Verified 02/03/21 16:01 Breathing celecoxib Allergy Unknown hives, n/v Verified 02/03/21 16:01 erythromycin base Allergy Unknown Unknown Verified 02/03/21 16:01 haloperidol Allergy Unknown Unknown Verified 02/03/21 16:01 ibuprofen Allergy Unknown Rash Verified 02/03/21 16:01 ketorolac Allergy Unknown Rash Verified 02/03/21 16:01 latex Allergy Unknown Unknown Verified 02/03/21 16:01 levetiracetam Allergy Unknown rash Verified 02/03/21 16:01 (moderate) metaxalone Allergy Unknown break out, Verified 02/03/21 16:01 cannot breathe nalbuphine Allergy Unknown Rash Verified 02/03/21 16:01 naproxen Allergy Unknown Rash Verified 02/03/21 16:01 NSAIDS (Non-Steroidal Allergy Unknown Rash Verified 02/03/21 16:01 Anti-Inflamma risperidone Allergy Unknown Confusion Verified 02/03/21 16:01 (moderate) sulfamethizole Allergy Unknown yeast Verified 02/03/21 16:01 infection (mild) sumatriptan Allergy Unknown hives Verified 02/03/21 16:01 tramadol Allergy Unknown Unknown Verified 02/03/21 16:01 trimethoprim Allergy Unknown yeast Verified 02/03/21 16:01 infection (mild) erythrosine sodium Allergy Hives Verified 02/03/21 16:01 Sulfa (Sulfonamide Allergy Hives Verified 02/03/21 16:01 Antibiotics) diclofenac AdvReac Mild GI UPSET Verified 02/03/21 16:01 lisinopril AdvReac Mild COUGHING Verified 02/03/21 16:01 ondansetron AdvReac Mild sob Verified 02/03/21 16:01 cyclobenzaprine AdvReac Unknown Dizziness Verified 02/03/21 16:01 divalproex sodium AdvReac Unknown Discomfort Verified 02/03/21 16:01 Review of Systems Review of Systems: All systems reviewed & are unremarkable except as noted in HPI and below Constitutional: Constitutional: Denies body ache(s), Denies chills, Denies excessive sweating, Denies fatigue, Denies fever(s), Denies headache(s), Denies lethargy, Denies malaise, Denies weakness and Denies weight loss Eyes: Eyes: Denies blurry vision, Denies change in vision and Denies loss of vision ENT: Denies dizziness, Denies ear discharge, Denies headache(s), Denies lip swelling, Denies epistaxis, Denies nasal congestion, Denies neck pain, Denies throat swelling and Denies tongue swelling Cardiovascular: Cardiovascular: Denies diaphoresis, Denies rapid heart rate, Denies edema, Denies irregular heart rhythm, Denies lightheadedness and Denies palpitations Respiratory: Respiratory: Denies chest congestion, Denies cough and Denies hemoptysis Gastrointestinal: Gastrointestinal: Denies abdominal pain, Denies melena, Denies hematochezia, Denies diarrhea, Denies nausea, Denies vomiting and Denies hematemesis Musculoskeletal: Musculoskeletal: Denies abnormal gait, Denies deformity, Denies joint swelling, Denies limited range of motion, Denies neck pain and Denies numbness Neurologic: Denies Abnormal speech present, Denies abnormal gait, Denies confusion, Denies dizzi
[2021-02-03 16:39] LABS: Basophils Percent Auto 0.4 % (0.2-1.2); Eosinophils Absolute Auto 0.2 K/mm3 (0-0.3); Eosinophils Percent Auto 3.5 % (0-4.4); Hematocrit 36.5 % (37.0-47.0); Hemoglobin 12.1 g/dL (12.0-15.0); Immature Granulocyte Absolute 0.01 K/mm3 (0.00-0.031); Immature Granulocyte Percent A 0.1 % (0-0.5); Lymphocytes Absolute Auto 2.28 K/mm3 (0.9-3.2); Lymphocytes Percent Auto 33.3 % (18.3-44.2); Mean Corpuscular HGB Conc 33.2 g/dl (32-36); Mean Corpuscular Hemoglobin 26.9 pg (26-34); Mean Corpuscular Volume 81.3 fl (80-100); Mean Platelet Volume 9.1 fl (7.4-10.4); Monocytes Absolute Auto 0.6 K/mm3 (0.1-0.6); Monocytes Percent Auto 8.2 % (2.6-8.5); Neutrophils Absolute Auto 3.7 K/mm3 (1.3-6.7); Neutrophils Percent Auto 54.5 % (45.5-73.1); Platelet Count Result 275 k/mm3 (150-375); Red Blood Count 4.49 M/mm3 (4.2-5.4); Red Cell Distribution Width 13.2 % (11.5-14.5); White Blood Count 6.8 K/mm3 (4.5-10.0)
[2021-02-03 16:47] LABS: INR 0.9; Prothrombin Time 12.9 Seconds (11.1-14.7)
[2021-02-03 16:48] LABS: Partial Thromboplastin Time 26.1 SECONDS (22.3-36.8)
[2021-02-03 16:49] LABS: Anion Gap 3 mmol/L (8-16); Blood Urea Nitrogen 15 mg/dL (7-17); Calcium 9.5 mg/dL (8.4-10.2); Carbon Dioxide 31 mmol/L (22-30); Chloride 105 mmol/L (98-107); Estimated Glomerular Filt Rate > 60; Glucose 94 mg/dL (65-105); Potassium 3.8 mmol/L (3.4-5.0); Sodium 139 mmol/L (137-145)
[2021-02-03 16:50] LABS: D Dimer 0.83 ug/mL (<0.48)
[2021-02-03 17:01] LABS: Troponin I < 0.012 ng/mL (0.000-0.034)
[2021-02-03] MEDS: APIXABAN 5 MG TABLET PO (19:09)
--- NOTE | 2021-02-03 20:05 | PC.NURSE ---
pt violently refusing 3 hour troponin lab draw at this time
--- NOTE | 2021-02-03 20:08 | PC.NURSE ---
pt angry about having labs drawn stating that she does not need to have labs drawn. pt says she is going to leave. pt quite agitated and loud when speaking to nurse and provider. pt packing her items.
[2021-02-03] MEDS: HYDROcodone/acetaminophen (*CRX) 5-325 MG TABLET 1 TAB PO (20:31)
== END 2021-02-03 20:33 | disposition home or self-care (01) ==
PROVIDERS: Emergency Provider Emergency Medicine; PCP Internal Medicine
DX: M79.604 Pain in right leg (principal); R07.89 Other chest pain; Z86.711 Personal history of pulmonary embolism; Z86.718 Personal history of other venous thrombosis and embolism; F41.9 Anxiety disorder, unspecified; F31.9 Bipolar disorder, unspecified; M79.7 Fibromyalgia; G35 Multiple sclerosis; F17.200 Nicotine dependence, unspecified, uncomplicated; R94.31 Abnormal electrocardiogram [ECG] [EKG]
CPT/HCPCS: 36415; 71045; 80048; 84484; 85025; 85380; 85610; 85730; 93005; 93971; 99284; A9270

== ENCOUNTER 2021-02-27 13:27 | Emergency (ER) | payer OTHER, SELFPAY ==
--- NOTE | ~2021-02-27 | CT_ITS ---
EXAMINATION: CT abdomen pelvis w con INDICATION: Abdominal pain and vomiting TECHNIQUE: Computed tomographic images of the abdomen and pelvis were obtained after the administrati on of 100 cc of Omnipaque 350 intravenous contrast. The dose-length product (DLP) was 245.81 mGy-cm. Automated exposure control and iterative reconstruction technique were employed. COMPARISON: 06/10/2014 FINDINGS: Minimal dependent atelectasis is present in the lung bases. The heart size is normal. The g allbladder is surgically absent. There is mild enlargement of the common bile duct and central intrah epatic ducts which is likely due to post cholecystectomy state. The liver, spleen, pancreas, and adre nal glands are normal. The kidneys are unremarkable. No pathologically enlarged abdominal or pelvic l ymph nodes are identified. There is mild wall thickening in the mid transverse colon. There is no cristin e intraperitoneal gas or evidence of bowel obstruction. A moderate volume of colonic stool is present . IMPRESSION: 1. Mild wall thickening in the mid transverse colon which could be due to incomplete distention or po ssibly mild colitis. Reviewed, dictated and finalized at location A. IMPRESSION: 1. Mild wall thickening in the mid transverse colon which could be due to incom plete distention or possibly mild colitis.
--- NOTE | 2021-02-27 13:28 | ED.ABDPAIN ---
HPI - Abdominal Pain General Chief Complaint: Abdominal Pain Stated Complaint: Ambulance Time Seen by Provider: 02/27/21 13:28 Source: patient and EMS Mode of arrival: ambulatory Limitations: no limitations History of Present Illness HPI narrative: 40-year-old woman brought to the emergency department by EMS for severe left-sided abdominal pain which started overnight. Patient states that she started vomiting at the same time. She tried to eat this morning but she vomited everything she ate And has been unable to tolerate Tylenol and fluids. She states that she has had pain before like this and thinks it might be kidney stones. She denies dysuria, hematuria, diarrhea, chest pain fever, chills, chest pain, shortness of breath, or back pain. She has history of tubal ligation and cholecystectomy. MD elicited complaint: abdominal pain Pertinent past history: kidney stones Onset (ago): hour(s) (6-8) Pain Consistency: constant Location: L flank Severity: severe Quality: sharp Radiation: none Migration to: no migration Exacerbating factors: nothing Relieving factors: nothing Associated symptoms: nausea and vomiting Related Data Allergies Allergy/AdvReac Type Severity Reaction Status Date / Time hydroxyzine Allergy Severe Anaphylactic Verified 02/27/21 14:35 Shock trazodone Allergy Intermediate hives, Verified 02/27/21 14:35 breathing, makes her mean! propoxyphene Allergy Mild N/V, hives Verified 02/27/21 14:35 buspirone Allergy Unknown Difficulty Verified 02/27/21 14:35 Breathing celecoxib Allergy Unknown hives, n/v Verified 02/27/21 14:35 erythromycin base Allergy Unknown Unknown Verified 02/27/21 14:35 haloperidol Allergy Unknown Unknown Verified 02/27/21 14:35 ibuprofen Allergy Unknown Rash Verified 02/27/21 14:35 ketorolac Allergy Unknown Rash Verified 02/27/21 14:35 latex Allergy Unknown Unknown Verified 02/27/21 14:35 levetiracetam Allergy Unknown rash Verified 02/27/21 14:35 (moderate) metaxalone Allergy Unknown break out, Verified 02/27/21 14:35 cannot breathe nalbuphine Allergy Unknown Rash Verified 02/27/21 14:35 naproxen Allergy Unknown Rash Verified 02/27/21 14:35 NSAIDS (Non-Steroidal Allergy Unknown Rash Verified 02/27/21 14:35 Anti-Inflamma risperidone Allergy Unknown Confusion Verified 02/27/21 14:35 (moderate) sulfamethizole Allergy Unknown yeast Verified 02/27/21 14:35 infection (mild) sumatriptan Allergy Unknown hives Verified 02/27/21 14:35 tramadol Allergy Unknown Unknown Verified 02/27/21 14:35 trimethoprim Allergy Unknown yeast Verified 02/27/21 14:35 infection (mild) erythrosine sodium Allergy Hives Verified 02/27/21 14:35 Sulfa (Sulfonamide Allergy Hives Verified 02/27/21 14:35 Antibiotics) diclofenac AdvReac Mild GI UPSET Verified 02/27/21 14:35 lisinopril AdvReac Mild COUGHING Verified 02/27/21 14:35 ondansetron AdvReac Mild sob Verified 02/27/21 14:35 cyclobenzaprine AdvReac Unknown Dizziness Verified 02/27/21 14:35 divalproex sodium AdvReac Unknown Discomfort Verified 02/27/21 14:35 Review of Systems Review of Systems: All systems reviewed & are unremarkable except as noted in HPI and below Constitutional: Constitutional: Denies chills, Denies fever(s) and Denies weakness Eyes: Eyes: Denies change in vision and Denies photophobia ENT: Denies nasal congestion and Denies sore throat Cardiovascular: Cardiovascular: Denies chest pain and Denies radiating jaw, neck or arm pain Respiratory: Respiratory: Denies cough and Denies dyspnea Gastrointestinal: Gastrointestinal: Reports abdominal pain, Denies diarrhea, Reports nausea and Reports vomiting Genitourinary: Genitourinary: Denies hematuria, Denies nocturia and Denies dysuria Musculoskeletal: Musculoskeletal: Denies back pain, Denies arthralgias and Denies joint swelling Neurologic: Denies vertigo, Denies dizziness and Denies syncope Allergic/Immunologic: Allergic/Im
[2021-02-27] MEDS: SODIUM CHLORIDE 0.9% IV 1,000 ML 999 ML IV CONT ×2 (14:12→19:58)
[2021-02-27] MEDS: ONDANSETRON INJ 4 MG/2 ML VIAL IV PUSH (14:13)
[2021-02-27 14:14] LABS: Basophils Absolute Auto 0.04 K/mm3 (0.00-0.10); Basophils Percent Auto 0.3 % (0.0-1.0); Eosinophils Absolute Auto 0.37 K/mm3 (0.02-0.50); Eosinophils Percent Auto 2.8 % (1.0-6.0); Hematocrit 37.6 % (35.0-49.0); Hemoglobin 11.7 g/dL (12.0-15.0); Immature Granulocyte Absolute 0.08 K/mm3 (0.00-0.00); Immature Granulocyte Percent A 0.6 % (0.0-0.0); Lymphocytes Absolute Auto 3.57 K/mm3 (1.10-4.50); Lymphocytes Percent Auto 26.6 % (18.0-42.0); Mean Corpuscular HGB Conc 31.1 g/dL (32.0-36.0); Mean Corpuscular Hemoglobin 26.3 pg (27.0-31.0); Mean Corpuscular Volume 84.5 fL (78.0-102.0); Mean Platelet Volume 8.8 fl (9.2-11.8); Monocytes Absolute Auto 0.84 K/mm3 (0.10-0.90); Monocytes Percent Auto 6.3 % (2.0-11.0); Neutrophils Absolute Auto 8.5 K/mm3 (1.7-7.2); Neutrophils Percent Auto 63.4 % (50.0-70.0); Platelet Count Result 313 K/mm3 (150-420); Red Blood Count 4.45 M/mm3 (4.20-5.40); Red Cell Distribution Width 13.8 % (11.6-14.4); White Blood Count 13.4 K/mm3 (4.8-10.8)
[2021-02-27] MEDS: KETOROLAC 30 MG/ML VIAL (*BKC) IV PUSH ×2 (14:14→21:42)
[2021-02-27] MEDS: PROMETHAZINE HCL 25 MG/ML AMPUL IM ×2 (14:18→21:43)
[2021-02-27 14:29] LABS: Partial Thromboplastin Time 22.6 SEC (23.90-30.70); Prothrombin Time 10.6 Seconds (9.50-12.10)
[2021-02-27 14:30] VITALS: BP 129/84; PULSE 88; RESP 20; TEMP 36.7; O2SAT 99
[2021-02-27 14:36] LABS: Alanine Aminotransferase 18 U/L (14-59); Albumin Level 3.4 g/dL (3.4-5.0); Alkaline Phosphatase 85 U/L (46-116); Anion Gap 10 mmol/L (8-16); Aspartate Amino Transferase 12 U/L (15-37); Bilirubin,Total 0.2 mg/dL (0.00-1.00); Blood Urea Nitrogen 14 mg/dL (7-18); Carbon Dioxide 24 mmol/L (21-32); Chloride 103 mmol/L (98-108); Estimated CRCL calculation 66 ml/min; Estimated Glomerular Filt Rate > 60; Glucose 102 mg/dL (70-99); Lipase 54 U/L (73-393); Osmolality Calculated 284 mOsm/kg (285-295); Potassium 3.2 mmol/L (3.5-5.1); Sodium 137 mmol/L (136-145); Total Protein 7.8 g/dL (6.4-8.2)
[2021-02-27 14:39] LABS: Beta HCG Quantitative < 1.00 mIU/mL (0-6)
[2021-02-27 14:46] LABS: Lactic Acid Reflex 2.3 mmol/L (0.4-2.0)
--- NOTE | 2021-02-27 17:00 | PC.NURSE ---
[id number] pt refused to get up to get a urine to send to lab pt refuses to hold right wrist straight so IV fluids will continue to infuse pt yelled at nurse and and states she just wants to be left alone to rest doctor made aware
[2021-02-27 17:11] LABS: Reflex Lactic Acid Yes or No Add Lactic
--- NOTE | 2021-02-27 18:48 | PC.NURSE ---
1840 pt continues to refuse to give a urine sample
--- NOTE | 2021-02-27 19:56 | PC.NURSE ---
pt continues to yell at nursing staff, wanting to sleep. attempted to encourage pt and educate pt regarding need for urine specimen. pt refusing to urinate at this time. erp notified.
--- NOTE | 2021-02-27 20:17 | PC.NURSE ---
pt refusing to urinate, #2 liter of saline infusing. pt refusing repeat vital signs at this time. just leave me alone , per pt
--- NOTE | 2021-02-27 20:47 | PC.NURSE ---
iv fluids infusing, pt sleeping, no evidence of pain at this time.
--- NOTE | 2021-02-27 21:30 | PC.NURSE ---
pt awake, up to commode. pt urinated , specimen to lab. iv fluid continues to infuse.
[2021-02-27 21:32] LABS: Appearance Urine Sl Cloudy (Clear); Bilirubin Urine Negative (Negative); Color Urine Yellow (Yellow); Glucose Urine UA Negative (Negative); Ketones Urine Negative (Negative); Leukocyte Esterase Ur 1+ LEU/UL (Negative); Nitrate Urine Negative (Negative); Protein Urine Negative (Negative); Specific Grav Ur 1.025 (1.010-1.020); Urobilinogen Urine 0.2 mg/dL (0.2-1.0)
[2021-02-27 21:38] LABS: Add Urine Microscopic? YES; Amorphous Sediment Urine Moderate; Bacteria Urine 1+ /hpf; Blood Urine Trace (Negative); Squamous Epithelial Cell Urine Moderate /hpf (Few)
--- NOTE | 2021-02-27 22:25 | PC.NURSE ---
pt uncoopertive with attempts to draw repeated labs. pt to ct scan with xray staff. returns to room at this time.
--- NOTE | 2021-02-27 22:51 | PC.NURSE ---
pt sleeping, iv levaquin infusing without difficulty
--- NOTE | 2021-02-27 23:34 | PC.NURSE ---
pt continues to be very agitated with any interaction with care provided. just leave me alone, leave the lights off . dr regalado in with pt. discussed plan of care. explained would need to find a ride home. pt states i will find a ride when im ready .
--- NOTE | 2021-02-28 00:43 | PC.NURSE ---
spoke with pt father, states mother is sleeping and has not had any calls. explained situation with need for ride home. father stated i will tell her, thats all i can do .
--- NOTE | 2021-02-28 01:26 | PC.NURSE ---
pt up to commode independently. no complaints of pain. explained need for ride home. continues to say my mom will be here in a few minutes . explained need to get up and get dressed to be ready for when ride arrives. pt refuses. pt yelling at staff get out of my room . attempts to call number provided, unsuccessful.
--- NOTE | 2021-02-28 02:03 | PC.NURSE ---
pt sleeping. no answer at mothers phone for tile picker
--- NOTE | 2021-02-28 03:25 | PC.NURSE ---
pt sleeping. left undisturbed. attempts to call mother unsuccessful. resp even and unlabored.
--- NOTE | 2021-02-28 06:23 | PC.NURSE ---
pt awake, asked pt to get dressed. pt refused. im sleeping , per pt.
--- NOTE | 2021-02-28 06:29 | PC.NURSE ---
pt mother , francesca mclain, called. just noticing missed calls. states she will try to figure something out to get her picked up and that she is already at work.
--- NOTE | 2021-02-28 07:01 | PC.NURSE ---
pt up to commode, emesis of 200ml liquid. pt back in bed. no complaints of pain voiced. explained mom called and would be arranging a ride. explained need to get dressed. pt refused to get dress. just leave me alone, give me a minute , per pt.
--- NOTE | 2021-02-28 07:12 | PC.NURSE ---
report to MARIO Medeiros.
--- NOTE | 2021-02-28 07:27 | PC.NURSE ---
attempt to get pt up and dressed , pt refusing. attempted call to mom, no answer.
--- NOTE | 2021-02-28 09:30 | PC.NURSE ---
[facility] here to escort pt out of department.
== END 2021-02-28 00:45 | disposition home or self-care (01) ==
PROVIDERS: Emergency Provider Emergency Medicine; PCP Internal Medicine
DX: K52.9 Noninfective gastroenteritis and colitis, unspecified (principal); N30.00 Acute cystitis without hematuria; M79.7 Fibromyalgia; G35 Multiple sclerosis; F17.200 Nicotine dependence, unspecified, uncomplicated; Z86.718 Personal history of other venous thrombosis and embolism; Z86.711 Personal history of pulmonary embolism
CPT/HCPCS: 36415; 74177; 80053; 81001; 83605; 83690; 84702; 85025; 85610; 85730; 87086; 96361; 96365; 96372; 96375; 96376; 99284; J1885; J1956; J2405; J2550; J7030; Q9967

== ENCOUNTER 2021-03-21 21:36 | Emergency (ER) | payer OTHER, SELFPAY ==
--- NOTE | ~2021-03-21 | CT_ITS ---
EXAMINATION: CT abdomen pelvis w con DATE: 03/21/2021 23:22 INDICATION: Abdomen pain. Patient unresponsive. Vomiting. TECHNIQUE: Computed tomography (CT) of the abdomen and pelvis was performed with 100 cc Omnipaque 350 intravenous contrast. The dose-length product was 520.47 mGy-cm. Automated exposure control and iterative reconstruction technique were employed. COMPARISON: CT dated 02/27/2021. FINDINGS: There is extensive dilation of small bowel with areas of mucosal thickening. There is trans ition left mid abdomen, axial image 95 and coronal image 74. There is a target sign in the small cheyanne l at the transition. There is no significant interloop fluid. There is free fluid in the pelvis. No f ree air is identified. There is dependent atelectasis. Heart size is normal. Status post cholecystectomy. The liver, spleen, pancreas, adrenal glands and kidneys are unremarkable. No lymphadenopathy. There is scoliosis. There is an intramedullary barbara in the left femur. IMPRESSION: 1. Small bowel obstruction with transition in the left mid abdomen, possibly due to adhesions. Cannot exclude strangulation. 2: Moderate free fluid in the pelvis. Reviewed, dictated and finalized at location A. IMPRESSION: 1. Small bowel obstruction with transition in the left mid abdomen, possibly du e to adhesions. Cannot exclude strangulation. 2: Moderate free fluid in the pelvis.
[2021-03-21 21:40] VITALS: BP 107/83; PULSE 83; RESP 20; TEMP 36.7; O2SAT 99
[2021-03-21] MEDS: NALOXONE HCL 0.4 MG/ML VIAL IV PUSH (21:48)
[2021-03-21 22:12] LABS: Basophils Absolute Auto 0.04 K/mm3 (0.00-0.10); Basophils Percent Auto 0.4 % (0.0-1.0); Eosinophils Absolute Auto 0.15 K/mm3 (0.02-0.50); Eosinophils Percent Auto 1.5 % (1.0-6.0); Hematocrit 40.3 % (35.0-49.0); Hemoglobin 12.9 g/dL (12.0-15.0); Immature Granulocyte Absolute 0.05 K/mm3 (0.00-0.00); Immature Granulocyte Percent A 0.5 % (0.0-0.0); Lymphocytes Absolute Auto 2.59 K/mm3 (1.10-4.50); Lymphocytes Percent Auto 26.3 % (18.0-42.0); Mean Corpuscular Volume 81.1 fL (78.0-102.0); Mean Platelet Volume 8.7 fl (9.2-11.8); Monocytes Absolute Auto 0.84 K/mm3 (0.10-0.90); Monocytes Percent Auto 8.5 % (2.0-11.0); Neutrophils Absolute Auto 6.2 K/mm3 (1.7-7.2); Neutrophils Percent Auto 62.8 % (50.0-70.0); Platelet Count Result 380 K/mm3 (150-420); Red Blood Count 4.97 M/mm3 (4.20-5.40); Red Cell Distribution Width 14.4 % (11.6-14.4); White Blood Count 9.8 K/mm3 (4.8-10.8)
[2021-03-21 22:27] LABS: Alanine Aminotransferase 15 U/L (14-59); Albumin Level 3.3 g/dL (3.4-5.0); Alkaline Phosphatase 89 U/L (46-116); Anion Gap 11 mmol/L (8-16); Aspartate Amino Transferase 13 U/L (15-37); Bilirubin,Total 0.2 mg/dL (0.00-1.00); Blood Urea Nitrogen 11 mg/dL (7-18); Calcium 9.5 mg/dL (8.5-10.1); Carbon Dioxide 26 mmol/L (21-32); Chloride 100 mmol/L (98-108); Estimated Glomerular Filt Rate > 60; Glucose 99 mg/dL (70-99); Lipase 51 U/L (73-393); Osmolality Calculated 283 mOsm/kg (285-295); Potassium 3.5 mmol/L (3.5-5.1); Sodium 137 mmol/L (136-145)
[2021-03-21 22:32] LABS: Lactic Acid Reflex 1.2 mmol/L (0.4-2.0)
[2021-03-21] MEDS: SODIUM CHLORIDE 0.9% IV 1,000 ML 999 ML IV CONT (22:45)
[2021-03-21 22:56] LABS: SPREG INTERNAL CONTROL Positive; Serum Qual hCG Negative
[2021-03-21] MEDS: METOCLOPRAMIDE HCL INJ 10 MG/2 ML VIAL IV PUSH (23:00)
--- NOTE | 2021-03-21 23:19 | PC.NURSE ---
2229 pt had multiple emesis of undigested food. increased phlegm and nasal drainage. repositioned in the bed with head of bed elevated.
--- NOTE | 2021-03-21 23:55 | PC.NURSE ---
2200 pt sleeping, 2230 pt sleeping, 2330 pt sleeping , spoke with mother , she is going to go home. 2345 mom called checking on ct results, pt sleeping, explained ct result to mother. mother requested [facility] if pt needs transfer.
--- NOTE | 2021-03-22 00:01 | PC.NURSE ---
spoke with matheus sesay for transfer. awaiting call back from surgeon
--- NOTE | 2021-03-22 00:09 | ED.ABDPAIN ---
HPI - Abdominal Pain General Chief Complaint: Abdominal Pain Stated Complaint: AMB Source: patient and EMS Mode of arrival: EMS Limitations: altered mental status History of Present Illness HPI narrative: this is a 32-year-old female that is well-known to our clinic with a history of bipolar disorder, multiple sclerosis fibromyalgia and opioid abuse. Has been having chronic abdominal pain over the last couple of months had a CT scan performed on in FebruaryFebruary 28 of this year which showed mild colitis. And another CT scan of the abdomen pelvis performed in January which showed no acute findings. Currently the patient has been having intense abdominal pain that started worsening earlier today with some nausea and episodes of vomiting the patient had an episode where she felt faint but did not pass out and patient states that she did take Glady earlier this morning. The patient presented via EMS to our emergency department she was lethargic Narcan with was administered and the patient did arouse easily and was complaining of severe abdominal pain and stated that she had severe bloating earlier this afternoon. Currently no fever or chills no chest pain no shortness of breath. Patient has a history of cholecystectomy. MD elicited complaint: abdominal pain Onset (ago): hour(s) Pain Consistency: intermittent Location: diffuse ( distended) Severity: severe Pain scale (0-10): 10 Quality: fullness and sharp Migration to: LLQ Exacerbating factors: eating and vomiting Related Data Allergies Allergy/AdvReac Type Severity Reaction Status Date / Time hydroxyzine Allergy Severe Anaphylactic Verified 02/27/21 14:35 Shock trazodone Allergy Intermediate hives, Verified 02/27/21 14:35 breathing, makes her mean! propoxyphene Allergy Mild N/V, hives Verified 02/27/21 14:35 buspirone Allergy Unknown Difficulty Verified 02/27/21 14:35 Breathing celecoxib Allergy Unknown hives, n/v Verified 02/27/21 14:35 erythromycin base Allergy Unknown Unknown Verified 02/27/21 14:35 haloperidol Allergy Unknown Unknown Verified 02/27/21 14:35 ibuprofen Allergy Unknown Rash Verified 02/27/21 14:35 ketorolac Allergy Unknown Rash Verified 02/27/21 14:35 latex Allergy Unknown Unknown Verified 02/27/21 14:35 levetiracetam Allergy Unknown rash Verified 02/27/21 14:35 (moderate) metaxalone Allergy Unknown break out, Verified 02/27/21 14:35 cannot breathe nalbuphine Allergy Unknown Rash Verified 02/27/21 14:35 naproxen Allergy Unknown Rash Verified 02/27/21 14:35 NSAIDS (Non-Steroidal Allergy Unknown Rash Verified 02/27/21 14:35 Anti-Inflamma risperidone Allergy Unknown Confusion Verified 02/27/21 14:35 (moderate) sulfamethizole Allergy Unknown yeast Verified 02/27/21 14:35 infection (mild) sumatriptan Allergy Unknown hives Verified 02/27/21 14:35 tramadol Allergy Unknown Unknown Verified 02/27/21 14:35 trimethoprim Allergy Unknown yeast Verified 02/27/21 14:35 infection (mild) erythrosine sodium Allergy Hives Verified 02/27/21 14:35 Sulfa (Sulfonamide Allergy Hives Verified 02/27/21 14:35 Antibiotics) diclofenac AdvReac Mild GI UPSET Verified 02/27/21 14:35 lisinopril AdvReac Mild COUGHING Verified 02/27/21 14:35 ondansetron AdvReac Mild sob Verified 02/27/21 14:35 cyclobenzaprine AdvReac Unknown Dizziness Verified 02/27/21 14:35 divalproex sodium AdvReac Unknown Discomfort Verified 02/27/21 14:35 Review of Systems Review of Systems: All systems reviewed & are unremarkable except as noted in HPI and below PMFSH Past Medical History Medical History (Updated 03/22/21 @ 00:16 by Quentin Starr MD) Anxiety disorder Anxiety disorder, unspecified Bipolar depression Bipolar depression DVT (deep venous thrombosis) Encephalopathy probably due to drug overdose. Encephalopathy Due to drug overdose Fibromyalgia Fibromyalgia Finger fracture, right History of DVT (deep vein thromb
[2021-03-22 00:15] VITALS: BP 111/80; PULSE 76; RESP 20; TEMP 36.8; O2SAT 98
--- NOTE | 2021-03-22 00:37 | PC.NURSE ---
dr rock spoke with dr cao, request to send to another facility. call placed to [facility] on medical delay. no beds available. call to [facility] spoke with luna, no beds available. mother updated on bed availability. requested to call [facility] , no specific to facility. call to [facility], spoke with samaria. samaria spoke with dr rock. awaiting call back from surgeon
--- NOTE | 2021-03-22 00:48 | PC.NURSE ---
pt sleeping, resp even unlabored. left undisturbed.
--- NOTE | 2021-03-22 02:18 | PC.NURSE ---
spoke with dr kan from [facility] to transfer there. awaiting bed assignment.
--- NOTE | 2021-03-22 02:32 | PC.NURSE ---
PT AWAKENED TO DISCUSS PLAN OF CARE. PT WIDE AWAKE AND ALERT. EXPLAINED NEED FOR NG TUBE PLACEMENT , PT REFUSED X2. EXPLAINED NEED FOR TRANSFER, PT AGREES WITH TRANSFER AT THIS TIME.
[2021-03-22 02:48] VITALS: BP 97/63; PULSE 80; RESP 20; TEMP 36.9; O2SAT 98
--- NOTE | 2021-03-22 03:22 | PC.NURSE ---
REPORT TO [facility] STAFF, CHANA AND SHAMA. PT LOADED TO COT. TOLERATED WELL.
== END 2021-03-22 03:25 | disposition short-term general hospital (02) ==
LOC: CHSED 21:39
PROVIDERS: Emergency Provider Emergency Medicine; PCP Internal Medicine
DX: K56.609 Unspecified intestinal obstruction, unspecified as to partial versus complete obstruction (principal)
CPT/HCPCS: 36415; 74177; 80053; 83605; 83690; 84703; 85025; 96361; 96374; 96375; 99285; J0131; J2310; J2765; J7030; Q9967

== ENCOUNTER 2021-04-03 09:49 | Observation (INO) | payer OTHER, SELFPAY ==
[2021-04-03] VITALS (8 sets, daily range): BP systolic 93–117; BP diastolic 51–66; PULSE 81–92; RESP 16–20; TEMP 36.7–37.6; O2SAT 95–100; BMI 22.6
--- NOTE | ~2021-04-03 | CT_ITS ---
EXAMINATION: CT brain wo con EXAM DATE: 04/04/2021 11:37 INDICATION: Temporary change in awareness, unable to follow commands. Incontinence. TECHNIQUE: Spiral CT of the head was performed without contrast. Axial, coronal and sagittal images were reviewed. The dose-length product (DLP) for this examination was 605.33 mGy-cm. The exposure w as tailored according to patient size, and iterative reconstruction (ASIR) was used as additional dos e reduction technique. Comparison is made to prior examination from 09/28/2018. FINDINGS: There is no acute intraparenchymal hemorrhage. No evidence of intraparenchymal brain mass lesion. No evidence of acute infarction. There is no mass effect or midline shift. The ventricles are normal in size. There are no extra-axial collections. There are no acute calvarial fractures. T he orbits are unremarkable. Soft tissue is unremarkable. The visualized sinuses and mastoid air jorge ls are well aerated. IMPRESSION: 1. No acute intracranial findings. Reviewed, dictated and finalized at location A.
--- NOTE | ~2021-04-03 | CT_ITS ---
EXAMINATION: CT abdomen pelvis wo con EXAM DATE: 04/04/2021 11:38 INDICATION: Incontinence. Abdominal pain, diarrhea. History of small bowel obstruction. TECHNIQUE: Spiral CT of the abdomen and pelvis was performed without contrast. Axial, coronal and s agittal images of the abdomen and pelvis were reviewed. The dose-length product (DLP) for this exami nation was 267.51 mGy-cm. The exposure was tailored according to patient size (auto mA exposure cont rol), and iterative reconstruction (ASIR) was used as additional dose reduction technique. Comparison is made to prior examination from 03/21/2021. FINDINGS: There has been interval normalization of bowel caliber compared to previous examination, ho wever there is still persistent moderate amount of ileal wall thickening, and probably also colonic w all thickening. Appearance is consistent with enterocolitis. No pneumatosis or free intraperitoneal g as. The liver, spleen, adrenal glands and pancreas are unremarkable. There are cholecystectomy clips. T here is no nephrolithiasis or hydronephrosis. The uterus is unremarkable. The bladder is unremark able. There is no retroperitoneal or pelvic lymphadenopathy. There are no findings to suggest appendicitis. There is small sliding gastroesophageal hiatal hernia . There is expected amount of colonic stool. The heart is normal in size. There are no pericardial or pleural effusions. The lung bases are unremarkable. There are no osteoblastic or osteolytic les ions identified. IMPRESSION: Moderately edematous ileum and probably colon. Probably enterocolitis, could be infectiou s etiology or inflammatory bowel disease. No obstruction. Reviewed, dictated and finalized at location A. IMPRESSION: Moderately edematous ileum and probably colon. Probably enterocolit is, could be infectious etiology or inflammatory bowel disease. No obstruction.
--- NOTE | ~2021-04-03 | XR_ITS ---
EXAMINATION: XR chest 1V portable EXAM DATE: 04/03/2021 11:44 INDICATION: Unresponsive. TECHNIQUE: Portable AP frontal chest x-ray was obtained. Comparison is made to prior examination from 01/28/2021. FINDINGS: The lungs are clear. There are no pleural effusions. The cardiomediastinal silhouette is within normal limits. There is no pneumothorax suspected. The bones and soft tissues are unremarkab le. There are cholecystectomy clips. IMPRESSION: No acute cardiopulmonary findings. Reviewed, dictated and finalized at location A.
[2021-04-03 11:01] LABS: Basophils Absolute Auto 0.02 K/mm3 (0.00-0.10); Basophils Percent Auto 0.1 % (0.0-1.0); Hematocrit 34.3 % (35.0-49.0); Hemoglobin 12.2 g/dL (12.0-15.0); Immature Granulocyte Absolute 0.07 K/mm3 (0.00-0.00); Immature Granulocyte Percent A 0.5 % (0.0-0.0); Lymphocytes Absolute Auto 1.46 K/mm3 (1.10-4.50); Lymphocytes Percent Auto 10.7 % (18.0-42.0); Mean Corpuscular HGB Conc 35.6 g/dL (32.0-36.0); Mean Corpuscular Volume 75.9 fL (78.0-102.0); Mean Platelet Volume 8.6 fl (9.2-11.8); Monocytes Percent Auto 8.8 % (2.0-11.0); Neutrophils Absolute Auto 10.9 K/mm3 (1.7-7.2); Neutrophils Percent Auto 79.9 % (50.0-70.0); Platelet Count Result 323 K/mm3 (150-420); Red Blood Count 4.52 M/mm3 (4.20-5.40); White Blood Count 13.7 K/mm3 (4.8-10.8)
[2021-04-03 11:13] LABS: Alanine Aminotransferase 21 U/L (14-59); Albumin Level 3.2 g/dL (3.4-5.0); Alkaline Phosphatase 87 U/L (46-116); Anion Gap 13 mmol/L (8-16); Aspartate Amino Transferase 25 U/L (15-37); Bilirubin,Total 0.5 mg/dL (0.00-1.00); Blood Urea Nitrogen 14 mg/dL (7-18); Calcium 8.8 mg/dL (8.5-10.1); Carbon Dioxide 27 mmol/L (21-32); Chloride 90 mmol/L (98-108); Estimated Glomerular Filt Rate > 60; Glucose 112 mg/dL (70-99); Osmolality Calculated 271 mOsm/kg (285-295); Sodium 130 mmol/L (136-145); Total Protein 7.1 g/dL (6.4-8.2)
[2021-04-03 11:14] LABS: Potassium 2.4 mmol/L (3.5-5.1)
--- NOTE | 2021-04-03 11:27 | PC.NURSE ---
COUNTY OFFICER SANNA WHITE NUMBER [id number] HERE TO CONFISCATE PILLS FOUND IN PTS BRA. 13 CAPSULES IN A BAGGIE AND 6 PILLS IN A SMALL BLACK CONTAINER.
[2021-04-03 13:13] LABS: Add Urine Microscopic? YES; Appearance Urine Clear (Clear); Bilirubin Urine Negative (Negative); Blood Urine 1+ (Negative); Color Urine Yellow (Yellow); Glucose Urine UA Negative (Negative); Ketones Urine 2+ (Negative); Leukocyte Esterase Ur Negative LEU/UL (Negative); Nitrate Urine Negative (Negative); Protein Urine Trace (Negative); Specific Grav Ur 1.015 (1.010-1.020)
[2021-04-03 13:18] LABS: Bacteria Urine Trace /hpf; Squamous Epithelial Cell Urine Rare /hpf (Few); WBC Urine None seen /hpf (0-3)
[2021-04-03 13:20] LABS: Amphetamine Screen Urine Positive (Negative); Barbiturate Screen Urine Negative (Negative); Benzodiazepines Screen Urine Negative (Negative); Cannabinoid Screen Urine Negative (Negative); Cocaine Screen Urine Negative (Negative); Methadone Screen Urine Negative (Negative); Opiate Screen Urine Negative (Negative); Phencyclidine Screen Urine Negative (Negative)
[2021-04-03] MEDS: KCL 40 MEQ/0.9% SOD CHL 1,000 ML 250 ML IV CONT ×3 (13:24→22:51)
--- NOTE | 2021-04-03 13:27 | PC.NURSE ---
1320 VORB 40MEQ KCL IN 1000 NS TO GO AT 250/HR
[2021-04-03 16:18] LABS: Pregnancy On Board Control Positive; Urine Pregnancy Test Negative
[2021-04-03 16:23] LABS: Magnesium 2.1 mg/dL (1.8-2.4)
--- NOTE | 2021-04-03 17:35 | ADMGEN ---
This patient, Manuela Yee, was admitted to 2nd Floor Room 206-1 for hypokalemia and overdose. Patient currently unable to comprehend any teaching about hospital policies and general routines including ID bracelet, bed and alarms, visiting hours, pain management, procedures, bathroom and other care routines, personal items, smoking policy, room service/diet, and visiting hours. Patient resting in bed on left side, Bed alarm activated. Alert to self only. Pericare provided. Call light in reach.
--- NOTE | 2021-04-03 18:08 | PC.NURSE ---
notified that patient has Zofran listed as a mild allergy but has received in previous ER visits. MD stated to go ahead and use the Zofran as needed.
[2021-04-03] MEDS: ONDANSETRON INJ 4 MG/2 ML VIAL IV PUSH (20:17)
--- NOTE | 2021-04-03 22:30 | PC.NURSE ---
pt clean and dry at this time. head of bed elevated to level of comfort to prevent aspiration. call marroquin in reach. pt remains nonverbal and altered mental status.
--- NOTE | 2021-04-03 22:56 | PC.NURSE ---
report to fany castro
[2021-04-04] VITALS: BP 98/60; PULSE 89; RESP 16; TEMP 37.3; O2SAT 98
--- NOTE | 2021-04-04 02:06 | PC.NURSE ---
Dr. Hou called to check on pt's condition; Report given.
--- NOTE | 2021-04-04 02:20 | PC.NURSE ---
Dr. Hou here to see patient.
[2021-04-04] MEDS: ONDANSETRON INJ 4 MG/2 ML VIAL IV PUSH (02:39)
--- NOTE | 2021-04-04 02:40 | PC.NURSE ---
New orders received and noted.
--- NOTE | 2021-04-04 02:44 | PC.NURSE ---
Pt given zofran 4 mg IVP to relieve nausea and dry heaves.
--- NOTE | 2021-04-04 03:14 | PC.NURSE ---
Stool for c diff obtained & sent to lab.
--- NOTE | 2021-04-04 03:45 | PC.NURSE ---
Dr. Hou called with orders to discontinue IV fluids.
--- NOTE | 2021-04-04 03:45 | PC.NURSE ---
Iv fluids with 40meq kcl infused.
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
[2021-04-04 08:00] VITALS: BP 123/82; PULSE 72; RESP 18; TEMP 36.8; O2SAT 100
--- NOTE | 2021-04-04 08:35 | PM.IMHP ---
H&P: HPI History of Present Illness Date/Time: 04/04/21 08:35 this is a who has a history of substance abuse who was brought to our ED via EMS. Patient has a past medical history of anxiety, bipolar disorder, DVT, encephalopathy secondary to drug overdose, fibromyalgia, MS and PE. Patient is a poor historian all information obtained from medical records. According to records patient was found at her home unresponsive with dry stool on her. During this assessment patient responded by opening her eyes. She was able to follow commands did not answer any of my questions. She does respond to painful strength stimuli. While the lab was at the bedside attempting to draw blood she repositions herself several times in screamed a couple times for the lab person to stop PMFSH Past Medical History Medical History (Updated 04/04/21 @ 04:18 by Luis Hou MD) Anxiety disorder Anxiety disorder, unspecified Bipolar depression Bipolar depression DVT (deep venous thrombosis) Encephalopathy probably due to drug overdose. Encephalopathy Due to drug overdose Fibromyalgia Fibromyalgia Finger fracture, right History of DVT (deep vein thrombosis) Leg arthropathy Multiple sclerosis Multiple sclerosis Pulmonary embolism Surgical History Surgical History (Updated 04/04/21 @ 04:05 by Luis Hou MD) History of cholecystectomy History of mandibular surgery Hx of cholecystectomy Family History Family History Sibling Hypertension Grandparent Cerebrovascular accident Family history of malignant neoplasm of breast Other Diabetes mellitus Family history of arthritis Family history of malignant neoplasm Family history of multiple sclerosis Social History Social History Smoking status: Smoker, status unknown Alcohol intake: unknown Substance use: current Substance use type: amphetamines and unknown Gender identity (if verbalized by the patient): Female Spiritual care concerns: No Meds Home Medications and Allergies Home Medications Medication Instructions Recorded Confirmed Type albuterol sulfate 90 mcg/actuation 1 inhalation INHALATION Q4H #18 gm 04/07/20 03/21/21 Rx aerosol inhaler carisoprodol 350 mg tablet 350 mg PO BID PRN 30 Days #60 06/03/20 03/21/21 Rx tablet butalbital 50 mg-acetaminophen 325 1 cap PO Q4H PRN 30 Days #120 cap 07/09/20 03/21/21 Rx mg-caffeine 40 mg-codeine 30 mg cap lorazepam 1 mg tablet 1 mg PO DAILY 2 Days #2 tablet 08/10/20 03/21/21 Rx amitriptyline 150 mg tablet 300 mg PO DAILY #60 tablet 08/30/20 03/21/21 Rx gabapentin 400 mg capsule 1,200 mg PO TID 30 Days #270 cap 09/20/20 03/21/21 Rx fluticasone propionate [Flonase 2 spray INTRANASAL DAILY 7 Days 01/22/21 03/21/21 Rx Allergy Relief] #16 g promethazine 25 mg PO Q6H PRN #10 tablet 02/27/21 03/21/21 Rx Allergies Allergy/AdvReac Type Severity Reaction Status Date / Time hydroxyzine Allergy Severe Anaphylactic Verified 04/03/21 11:51 Shock trazodone Allergy Intermediate hives, Verified 04/03/21 11:51 breathing, makes her mean! propoxyphene Allergy Mild N/V, hives Verified 04/03/21 11:51 buspirone Allergy Unknown Difficulty Verified 04/03/21 11:51 Breathing celecoxib Allergy Unknown hives, n/v Verified 04/03/21 11:51 erythromycin base Allergy Unknown Unknown Verified 04/03/21 11:51 haloperidol Allergy Unknown Unknown Verified 04/03/21 11:51 ibuprofen Allergy Unknown Rash Verified 04/03/21 11:51 ketorolac Allergy Unknown Rash Verified 04/03/21 11:51 latex Allergy Unknown Unknown Verified 04/03/21 11:51 levetiracetam Allergy Unknown rash Verified 04/03/21 11:51 (moderate) metaxalone Allergy Unknown break out, Verified 04/03/21 11:51 cannot breathe nalbuphine Allergy Unknown Rash Verified 04/03/21 11:51 naproxen Allergy Unknown Rash Verified 04/03/21 11:51 NSAIDS (Non-Steroidal Al
[2021-04-04 09:34] LABS: Hematocrit 34.8 % (35.0-49.0); Hemoglobin 10.9 g/dL (12.0-15.0); Mean Corpuscular HGB Conc 31.3 g/dL (32.0-36.0); Mean Corpuscular Hemoglobin 26.9 pg (27.0-31.0); Mean Corpuscular Volume 85.9 fL (78.0-102.0); Red Blood Count 4.05 M/mm3 (4.20-5.40); Red Cell Distribution Width 15.8 % (11.6-14.4); White Blood Count 8.2 K/mm3 (4.8-10.8)
[2021-04-04 09:35] LABS: Platelet Count Result 90 K/mm3 (150-420)
[2021-04-04 09:46] LABS: Alanine Aminotransferase 21 U/L (14-59); Albumin Level 2.5 g/dL (3.4-5.0); Alkaline Phosphatase 60 U/L (46-116); Anion Gap 15 mmol/L (8-16); Aspartate Amino Transferase 25 U/L (15-37); Bilirubin,Total 0.3 mg/dL (0.00-1.00); Blood Urea Nitrogen 14 mg/dL (7-18); Calcium 7.9 mg/dL (8.5-10.1); Carbon Dioxide 20 mmol/L (21-32); Chloride 103 mmol/L (98-108); Estimated Glomerular Filt Rate > 60; Glucose 83 mg/dL (70-99); Osmolality Calculated 285 mOsm/kg (285-295); Potassium 3.2 mmol/L (3.5-5.1); Sodium 138 mmol/L (136-145); Total Protein 5.8 g/dL (6.4-8.2)
[2021-04-04] MEDS: SODIUM CHLORIDE 0.9% IV 1,000 ML 100 ML IV CONT ×2 (09:54→20:19)
[2021-04-04] MEDS: LORazepam INJ (*CRX) 2 MG/ML VIAL 1 MG IV PUSH (11:20)
[2021-04-04] MEDS: ENOXAPARIN 40 MG/0.4 ML SYRINGE SUB-Q (12:00)
--- NOTE | 2021-04-04 12:03 | PC.NURSE ---
Mom reports not sure if on any medications, called dr bobo ( [place]) patient primary doctor, no longer in practice, called patient pharmacy, states has not filled any routine medication, just filled promethazine and hydrocodone and an antibiotic recently.
--- NOTE | 2021-04-04 13:17 | PM.SD2 ---
Same Day Admit/Disch: HPI History of Present Illness Chief complaint: HYPOKALEMIA Narrative: Manuela Yee is a 40 year old female who has a history of substance abuse who was brought to our ED via EMS. Patient has a past medical history of anxiety, bipolar disorder, DVT, encephalopathy secondary to drug overdose, fibromyalgia, MS and PE. Patient is a poor historian all information obtained from medical records. According to records patient was found at her home unresponsive with dry stool on her. During this assessment patient responded by opening her eyes. She was unable to follow commands ,did not answer any of my questions. She does respond to painful strength stimuli. While the lab was at the bedside attempting to draw blood she repositions herself several times after giving her directions several times and screamed a couple times for the lab person to stop with blood draws. She would not open her eyes and when attempting to open them mechanically she was squeezed tighter so that we could not assess her pupils. She is currently lying in a position and when asked to stretch out she will not, it appears that she is not comprehending our commands. Patient is also incontinent of bowel and bladder. Unable to assess patient for motor function, sensory exam she has a cognitive dysfunction at this time. Vital signs 123/82, pulse 72, respiratory rate 18, temperature 98.2, 100% on room air. On admission WBC 13.7, RBC 4.52, hemoglobin 12.2, hematocrit 34.3, platelets 323, sodium 130, potassium 2.4, glucose 112, magnesium 2.1, liver function within normal limits, UA with trace of protein ketone blood, toxicology positive for amphetamine CT of the head unremarkable, CT of the abdomen enterocolitis, chest x-ray unremarkable, EKG sinus rhythm with a heart rate of 80. Unable to complete a CTA due to lack of access. Unable to draw an ammonia level, PT/INR, D-dimer due to a failed blood draw. Wiill start Zosyn for enterocolitis. Observation Time spent 60 minutes Disposition: We will transfer to have a higher level care hospital [facility] Past Medical History Medical History (Updated 04/04/21 @ 14:05 by ERIK Diamond) Anxiety disorder Anxiety disorder, unspecified Bipolar depression Bipolar depression DVT (deep venous thrombosis) Encephalopathy probably due to drug overdose. Encephalopathy Due to drug overdose Fibromyalgia Fibromyalgia Finger fracture, right History of DVT (deep vein thrombosis) Leg arthropathy Multiple sclerosis Multiple sclerosis Pulmonary embolism Surgical History Surgical History (Updated 04/04/21 @ 04:05 by Luis Hou MD) History of cholecystectomy History of mandibular surgery Hx of cholecystectomy Family History Family History Sibling Hypertension Grandparent Cerebrovascular accident Family history of malignant neoplasm of breast Other Diabetes mellitus Family history of arthritis Family history of malignant neoplasm Family history of multiple sclerosis Social History Social History Smoking status: Smoker, status unknown Alcohol intake: unknown Substance use: current Substance use type: amphetamines and unknown Gender identity (if verbalized by the patient): Female Spiritual care concerns: No Same Day Admit/Disch: Med Pre-admit Medications Home Medications Medication Instructions Recorded Confirmed Type albuterol sulfate 90 mcg/actuation 1 inhalation INHALATION Q4H #18 gm 04/07/20 04/04/21 Rx aerosol inhaler promethazine 25 mg PO Q6H PRN #10 tablet 02/27/21 04/04/21 Rx Exam Narrative: Exam Narrative: GENERAL: Lethargic in no apparent distress. HEAD: normocephalic, atraumatic. EYES: PERRL. Sclera clear/white. Unable to assess pupil response. EARS: External ears normal, auditory canals clear and without drainage, TMs normal without perforation.
[2021-04-04] MEDS: PANTOPRAZOLE SODIUM IV 40 MG VIAL IV PUSH (14:41)
[2021-04-04 16:00] VITALS: BP 107/67; PULSE 78; RESP 16; TEMP 37.1; O2SAT 99
[2021-04-04] MEDS: PROCHLORPERAZINE EDISYLATE 10 MG/2 ML VIAL 5 MG IV PUSH (16:16)
--- NOTE | 2021-04-04 22:16 | PC.NURSE ---
transferred to bedside commode. Depends dry. Urine cloudy and dark. Unable to put feet flat on floor to transfer. when asked what she could recall just gave blank stare. could not provide address, date, current living situation.
--- NOTE | 2021-04-04 23:53 | PC.NURSE ---
Patient resting. Respirations regular and even. Continent of bowel and bladder at this time.
[2021-04-05] VITALS: BP 97/57; PULSE 90; RESP 18; TEMP 37.2; O2SAT 100
--- NOTE | 2021-04-05 01:13 | PC.NURSE ---
Call from warehouse guard at [facility]. No bed available at this time but may have opening during day shift.
--- NOTE | 2021-04-05 01:49 | PC.NURSE ---
Patient up to bedside commode. Gait steadier than previous transfer. Asked date and time. Requested something to eat and drink. Provided.
--- NOTE | 2021-04-05 01:51 | PC.NURSE ---
Denies nausea or pain
--- NOTE | 2021-04-05 02:27 | PC.NURSE ---
Patient drank juice and had container of jello.
--- NOTE | 2021-04-05 06:10 | PC.NURSE ---
Patient refused AM blood draw. IV on left foot infiltrated. Patient refuses to allow another IV to be started.
--- NOTE | 2021-04-05 07:52 | P.DS_ITS ---
DS: Admitting Diagnosis Admitting Diagnosis Admitting Diagnosis: Overdose, encephalopathy, enterocolitis DS: Discharge Diagnosis Discharge Diagnosis (1) Overdose: Qualifiers: Encounter type: initial encounter Injury intent: accidental or unintentional Qualified Code(s): T50.901A - Poisoning by unspecified drugs, medicaments and biological substances, accidental (unintentional), initial encounter Code(s): T50.901A - Poisoning by unspecified drugs, medicaments and biological substances, accidental (unintentional), initial encounter Status: Acute Assessment and Plan: * Patient positive for amphetamines. In the past she has also tested positive for opiates, barbiturates, benzos * Patient did receive Narcan in the ED with little response. In the past patient has been given Narcan and wakes upset afterwards this time she did not respond like she usually does. * Patient is known to the community. And it was pointed out that this is an outpatient baseline behavior. (2) Bipolar depression: Code(s): F31.9 - Bipolar disorder, unspecified Status: Acute Assessment and Plan: * Not on any medication (3) History of DVT (deep vein thrombosis): Code(s): Z86.718 - Personal history of other venous thrombosis and embolism Status: Acute Assessment and Plan: * Patient noncompliant with anticoagulant * Will not start any anticoagulant until MRI is completed to rule out brain hemorrhage * She will need a CTA when she gets appropriate IV access (4) Encephalopathy: Code(s): G93.40 - Encephalopathy, unspecified Status: Acute Assessment and Plan: * Resolved * Possibly secondary to substance abuse versus seizure versus infection versus CVA * CT of the head unremarkable * (5) Fibromyalgia: Code(s): M79.7 - Fibromyalgia Status: Acute (6) Multiple sclerosis: Code(s): G35 - Multiple sclerosis Status: Acute (7) Chronic GERD: Code(s): K21.9 - Gastro-esophageal reflux disease without esophagitis Status: Acute Assessment and Plan: * Continue pantoprazole (8) Chronic obstructive pulmonary disease, unspecified: Code(s): J44.9 - Chronic obstructive pulmonary disease, unspecified Status: Acute Assessment and Plan: * Patient does not appear to be in any respiratory distress at this time * She does not take any home medication for COPD * Will adjust medication as needed * (9) Enterocolitis: Code(s): K52.9 - Noninfective gastroenteritis and colitis, unspecified Status: Acute Assessment and Plan: * Started Zosyn as requested by receiving hospital * CT indicates moderately edematous ileum and proximal colon. Enterocolitis (10) Electrolyte imbalance: Code(s): E87.8 - Other disorders of electrolyte and fluid balance, not elsewhere classified Status: Acute Assessment and Plan: * Potassium2.4>3.2 * Sodium 130>138 * Patient received a K rider and IV fluids * patient refused blood draw DS: Summary Hospital Course Reason for hospitalization: Encephalopathy, drug overdose Hospital Course: Manuela Yee is a 40 year old female who has a history of substance abuse who was brought to our ED via EMS. Patient has a past medical history of anxiety, bipolar disorder, DVT, encephalopathy secondary to drug overdose, fibromyalgia, MS and PE. Patient is a poor historian all information obtained from medical records. According to records patient was found at her home unresponsive with dry stool on her.
--- NOTE | 2021-04-05 07:52 | PM.DS ---
DS: Admitting Diagnosis Admitting Diagnosis Admitting Diagnosis: Overdose, encephalopathy, enterocolitis DS: Discharge Diagnosis Discharge Diagnosis (1) Overdose: Qualifiers: Encounter type: initial encounter Injury intent: accidental or unintentional Qualified Code(s): T50.901A - Poisoning by unspecified drugs, medicaments and biological substances, accidental (unintentional), initial encounter Code(s): T50.901A - Poisoning by unspecified drugs, medicaments and biological substances, accidental (unintentional), initial encounter Status: Acute Assessment and Plan: Patient positive for amphetamines. In the past she has also tested positive for opiates, barbiturates, benzos Patient did receive Narcan in the ED with little response. In the past patient has been given Narcan and wakes upset afterwards this time she did not respond like she usually does. Patient is known to the community. And it was pointed out that this is an outpatient baseline behavior. (2) Bipolar depression: Code(s): F31.9 - Bipolar disorder, unspecified Status: Acute Assessment and Plan: Not on any medication (3) History of DVT (deep vein thrombosis): Code(s): Z86.718 - Personal history of other venous thrombosis and embolism Status: Acute Assessment and Plan: Patient noncompliant with anticoagulant Will not start any anticoagulant until MRI is completed to rule out brain hemorrhage She will need a CTA when she gets appropriate IV access (4) Encephalopathy: Code(s): G93.40 - Encephalopathy, unspecified Status: Acute Assessment and Plan: Resolved Possibly secondary to substance abuse versus seizure versus infection versus CVA CT of the head unremarkable (5) Fibromyalgia: Code(s): M79.7 - Fibromyalgia Status: Acute (6) Multiple sclerosis: Code(s): G35 - Multiple sclerosis Status: Acute (7) Chronic GERD: Code(s): K21.9 - Gastro-esophageal reflux disease without esophagitis Status: Acute Assessment and Plan: Continue pantoprazole (8) Chronic obstructive pulmonary disease, unspecified: Code(s): J44.9 - Chronic obstructive pulmonary disease, unspecified Status: Acute Assessment and Plan: Patient does not appear to be in any respiratory distress at this time She does not take any home medication for COPD Will adjust medication as needed (9) Enterocolitis: Code(s): K52.9 - Noninfective gastroenteritis and colitis, unspecified Status: Acute Assessment and Plan: Started Zosyn as requested by receiving hospital CT indicates moderately edematous ileum and proximal colon. Enterocolitis (10) Electrolyte imbalance: Code(s): E87.8 - Other disorders of electrolyte and fluid balance, not elsewhere classified Status: Acute Assessment and Plan: Potassium2.4>3.2 Sodium 130>138 Patient received a K rider and IV fluids patient refused blood draw DS: Summary Hospital Course Reason for hospitalization: Encephalopathy, drug overdose Hospital Course: Manuela Yee is a 40 year old female who has a history of substance abuse who was brought to our ED via EMS. Patient has a past medical history of anxiety, bipolar disorder, DVT, encephalopathy secondary to drug overdose, fibromyalgia, MS and PE. Patient is a poor historian all information obtained from medical records. According to records patient was found at her home unresponsive with dry stool on her. During this assessment patient responded by opening her eyes. She was unable to follow commands ,did not answer any of my questions. She does respond to painful strength stimuli. While the lab was at the bedside attempting to draw blood she repositions herself several times after giving her directions several times and screamed a couple times for the lab person to stop with blood draws. She would not open her
[2021-04-05 08:00] VITALS: BP 108/70; PULSE 72; RESP 20; TEMP 37.4; O2SAT 98
--- NOTE | 2021-04-05 08:00 | PC.NURSE ---
pt assisted with tray set up for breakfast, denies pain or other needs at this time.
[2021-04-05] MEDS: POTASSIUM CHLORIDE 20 MEQ TABLET 40 MEQ PO (08:12)
[2021-04-05] MEDS: ONDANSETRON HCL ODT 4 MG TABLET PO (08:12)
--- NOTE | 2021-04-05 09:05 | PC.NURSE ---
pt assisted to wheelchair then taken to shower room to get cleaned up. pt tolerated activity well and was able to clean herself with only little assistance for feet and hair.
--- NOTE | 2021-04-05 10:35 | PC.NURSE ---
pt resting in bed, informed pt her sister will be coming to pick her up today
--- NOTE | 2021-04-05 11:20 | PC.NURSE ---
pt up to bsc, tolerated well
--- NOTE | 2021-04-05 11:45 | PC.NURSE ---
pt family at bedside, discharge instructions given, verbalized understanding, pt getting dressed
--- NOTE | 2021-04-05 12:25 | PC.NURSE ---
pt discharged in stable condition, via wheelchair to personal vehicle
--- NOTE | 2021-04-06 10:19 | PC.NURSE ---
Invalid phone number for discharge call back.
== END 2021-04-05 12:25 | disposition home or self-care (01) ==
LOC: CHSED 11:10 → CHS2ND 04-04 04:18
PROVIDERS: Emergency Medicine; Admitting Provider Emergency Medicine; Emergency Provider Emergency Medicine; PCP Internal Medicine; Visit Provider Nurse Practitioner
DX: T50.901A Poisoning by unspecified drugs, medicaments and biological substances, accidental (unintentional), initial encounter (principal); G93.40 Encephalopathy, unspecified; E87.6 Hypokalemia; E87.8 Other disorders of electrolyte and fluid balance, not elsewhere classified; K52.9 Noninfective gastroenteritis and colitis, unspecified; J44.9 Chronic obstructive pulmonary disease, unspecified; G35 Multiple sclerosis; M79.7 Fibromyalgia; K21.9 Gastro-esophageal reflux disease without esophagitis; F19.10 Other psychoactive substance abuse, uncomplicated; F41.9 Anxiety disorder, unspecified; F31.9 Bipolar disorder, unspecified; Z86.718 Personal history of other venous thrombosis and embolism; Z86.711 Personal history of pulmonary embolism; Y92.019 Unspecified place in single-family (private) house as the place of occurrence of the external cause
CPT/HCPCS: 36415; 51701; 70450; 71045; 74176; 80053; 80307; 81001; 81025; 83735; 85025; 85027; 87040; 87045; 87046; 87177; 87209; 87269; 87272; 87324; 87427; 89055; 96360; 96361; 96365; 96366; 96375; 99285; A9270; C9113; G0378; G0379; J0780; J1650; J2060; J2405; J2543; J7030

== ENCOUNTER 2021-04-27 03:59 | Observation (INO) | payer OTHER, SELFPAY ==
[2021-04-27] VITALS (9 sets, daily range): BP systolic 104–142; BP diastolic 72–96; PULSE 92–115; RESP 16–22; TEMP 36.4–38.1; O2SAT 94–99
--- NOTE | ~2021-04-27 | CT_ITS ---
EXAMINATION: CT brain wo con DATE: 04/27/2021 14:47 INDICATION: Altered mental status. TECHNIQUE: Computed tomography (CT) of the head was performed without intravenous contrast. The mA wa s adjusted according to patient size. Iterative reconstruction technique was employed. The dose-lengt h product was 605.33 mGy-cm. COMPARISON: Head CT 04/04/2021 FINDINGS: There is no intracranial hemorrhage, acute infarction, or abnormal intracranial mass lesion . The ventricles are normal in size. The paranasal sinuses are clear. There is a trace left mastoid e ffusion. The orbits are normal. IMPRESSION: 1. Normal brain. Reviewed, dictated and finalized at location A. IMPRESSION: 1. Normal brain.
--- NOTE | ~2021-04-27 | CT_ITS ---
EXAMINATION: CT abdomen pelvis w con DATE: 04/27/2021 14:47 INDICATION: Small bowel obstruction. Nausea and vomiting. TECHNIQUE: Computed tomography (CT) of the abdomen and pelvis was performed with 100 mL Omnipaque 350 intravenous contrast. Automated exposure control and iterative reconstruction technique were employe d. The dose-length product was 308.98 mGy-cm. COMPARISON: CT abdomen and pelvis 04/04/2021 FINDINGS: The visualized portions of the lung bases demonstrate mild atelectasis. No pleural effusion . There is a small sliding hiatal hernia. There is mild wall thickening of distal esophagus, likely e sophagitis. The heart size is normal. No pericardial effusion. The liver and spleen are normal. There are changes of cholecystectomy. The pancreas, adrenal glands, and left kidney are normal. There is a 5 mm cyst in right kidney. There is a large volume of stool in the colon. There are multiple dilated loops of small bowel with transition point in the pelvis. There is mild wall thickening of some of t he small bowel in the lower abdomen. There are no pathologically enlarged lymph nodes. There is no fr ee intraperitoneal fluid. There is internal fixation of left femur. IMPRESSION: 1. Dilated small bowel with transition point in the pelvis, consistent with small bowel obstruction. Mild wall thickening of some of the small bowel in the lower abdomen, consistent with inflammation. 2. Small sliding hiatal hernia. 3. Mild wall thickening of the distal esophagus, consistent with esophagitis. Reviewed, dictated and finalized at location A. IMPRESSION: 1. Dilated small bowel with transition point in the pelvis, consistent with sma ll bowel obstruction. Mild wall thickening of some of the small bowel in the lo wer abdomen, consistent with inflammation. 2. Small sliding hiatal hernia. 3. Mild wall thickening of the distal esophagus, consistent with esophagitis.
--- NOTE | ~2021-04-27 | XR_ITS ---
EXAMINATION: XR abdomen/kub 1V DATE: 04/27/2021 05:34 INDICATION: Nausea and vomiting TECHNIQUE: A supine view of the abdomen was obtained. COMPARISON: CT dated 04/04/2021 FINDINGS: Multiple dilated gas-filled loops of small bowel measuring up to 4.9 cm maximal diameter consistent w ith small bowel obstruction. Small amount of gas and stool seen in the proximal colon. Cholecystectom y clips in the right upper quadrant. Lumbar levoscoliosis which may be positional. Partially visualiz ed antegrade intramedullary barbara at the proximal left femur. IMPRESSION: 1. Small bowel obstruction. Reviewed, dictated and finalized at location A. IMPRESSION: 1. Small bowel obstruction.
[2021-04-27] MEDS: ONDANSETRON INJ 4 MG/2 ML VIAL IV PUSH ×3 (04:23→15:33)
[2021-04-27] MEDS: NALOXONE HCL INJ 2 MG/2 ML AMP IV PUSH (05:00)
[2021-04-27 05:09] LABS: Basophils Absolute Auto 0.03 K/mm3 (0.00-0.10); Basophils Percent Auto 0.2 % (0.0-1.0); Eosinophils Absolute Auto 0.05 K/mm3 (0.02-0.50); Eosinophils Percent Auto 0.3 % (1.0-6.0); Hematocrit 39.7 % (35.0-49.0); Hemoglobin 13.5 g/dL (12.0-15.0); Immature Granulocyte Absolute 0.08 K/mm3 (0.00-0.00); Immature Granulocyte Percent A 0.5 % (0.0-0.0); Lymphocytes Absolute Auto 0.75 K/mm3 (1.10-4.50); Lymphocytes Percent Auto 4.7 % (18.0-42.0); Mean Corpuscular Hemoglobin 26.5 pg (27.0-31.0); Mean Platelet Volume 8.3 fl (9.2-11.8); Monocytes Percent Auto 6.3 % (2.0-11.0); Platelet Count Result 377 K/mm3 (150-420); Red Blood Count 5.09 M/mm3 (4.20-5.40); Red Cell Distribution Width 13.6 % (11.6-14.4); White Blood Count 15.9 K/mm3 (4.8-10.8)
[2021-04-27 05:15] LABS: Appearance Urine Clear (Clear); Bilirubin Urine 1+ (Negative); Blood Urine Negative (Negative); Glucose Urine UA Negative (Negative); Ketones Urine Trace (Negative); Leukocyte Esterase Ur Negative LEU/UL (Negative); Nitrate Urine Negative (Negative); Protein Urine Negative (Negative); Specific Grav Ur >= 1.030 (1.010-1.020); Urobilinogen Urine 0.2 mg/dL (0.2-1.0); pH Urine 5.5 (5.0-8.0)
[2021-04-27] MEDS: METOPROLOL TARTRATE INJ 5 MG/5 ML VIAL IV PUSH (05:16)
--- NOTE | 2021-04-27 05:20 | ED.OVERDOSE ---
HPI - Overdose General Chief Complaint: Overdose Stated Complaint: Possible overdose Time Seen by Provider: 04/27/21 04:10 Source: patient and EMS Mode of arrival: EMS Limitations: altered mental status History of Present Illness HPI Narrative: Patient is once again brought in by EMS. She was found at her home nonresponsive, and 911 was called. It is assumed she once again overdosed unintentionally at her home, as she has done so many times before. She was given narcan 2mg intranasally by the fire department and seemed to improve with that. No one would give the medics a picture as to what she had taken. She was found passed out in her bedroom. She had evidently been in her usual state of health prior to this. MD complaint: accidental overdose Onset (ago): minute(s) Timing confirmed by: other (friends at her house) Intent: unknown How Overdose Was Discovered: family/friend present at time Context: Accidental Overdose: wanted to get high Related Data Home Medications Medication Instructions Recorded Confirmed Unable to Obtain Home Medications 04/27/21 04/27/21 Allergies Allergy/AdvReac Type Severity Reaction Status Date / Time hydroxyzine Allergy Severe Anaphylactic Verified 04/03/21 11:51 Shock trazodone Allergy Intermediate hives, Verified 04/03/21 11:51 breathing, makes her mean! propoxyphene Allergy Mild N/V, hives Verified 04/03/21 11:51 buspirone Allergy Unknown Difficulty Verified 04/03/21 11:51 Breathing celecoxib Allergy Unknown hives, n/v Verified 04/03/21 11:51 erythromycin base Allergy Unknown Unknown Verified 04/03/21 11:51 haloperidol Allergy Unknown Unknown Verified 04/03/21 11:51 ibuprofen Allergy Unknown Rash Verified 04/03/21 11:51 ketorolac Allergy Unknown Rash Verified 04/03/21 11:51 latex Allergy Unknown Unknown Verified 04/03/21 11:51 levetiracetam Allergy Unknown rash Verified 04/03/21 11:51 (moderate) metaxalone Allergy Unknown break out, Verified 04/03/21 11:51 cannot breathe nalbuphine Allergy Unknown Rash Verified 04/03/21 11:51 naproxen Allergy Unknown Rash Verified 04/03/21 11:51 NSAIDS (Non-Steroidal Allergy Unknown Rash Verified 04/03/21 11:51 Anti-Inflamma risperidone Allergy Unknown Confusion Verified 04/03/21 11:51 (moderate) sulfamethizole Allergy Unknown yeast Verified 04/03/21 11:51 infection (mild) sumatriptan Allergy Unknown hives Verified 04/03/21 11:51 tramadol Allergy Unknown Unknown Verified 04/03/21 11:51 trimethoprim Allergy Unknown yeast Verified 04/03/21 11:51 infection (mild) erythrosine sodium Allergy Hives Verified 04/03/21 11:51 Sulfa (Sulfonamide Allergy Hives Verified 04/03/21 11:51 Antibiotics) diclofenac AdvReac Mild GI UPSET Verified 04/03/21 11:51 lisinopril AdvReac Mild COUGHING Verified 04/03/21 11:51 ondansetron AdvReac Mild sob Verified 04/03/21 11:51 cyclobenzaprine AdvReac Unknown Dizziness Verified 04/03/21 11:51 divalproex sodium AdvReac Unknown Discomfort Verified 04/03/21 11:51 Review of Systems Review of Systems: ROS unobtainable: Yes unobtainable due to medical condition (she cannot / will not answer any questions ROS felt to be negative) Constitutional: Constitutional: Reports as per HPI Eyes: Eyes: Reports as per HPI ENT: Reports system reviewed and no additional complaints, except as documented Cardiovascular: Cardiovascular: Reports no additional cardiovascular complaints Respiratory: Respiratory: Reports no additional respiratory complaints Gastrointestinal: Gastrointestinal: Reports no additional gastrointestinal complaints Genitourinary: Genitourinary: Reports no additional female genitourinary complaints Musculoskeletal: Musculoskeletal: Reports no additional musculoskeletal complaints Integumentary/Breasts: Skin/Breast: Reports system reviewed and no additional complaints, except as docu Neurologic: Reports system reviewed and no additional comp
[2021-04-27 05:21] LABS: Amphetamine Screen Urine Positive (Negative); Barbiturate Screen Urine Negative (Negative); Benzodiazepines Screen Urine Positive (Negative); Cannabinoid Screen Urine Negative (Negative); Cocaine Screen Urine Negative (Negative); Methadone Screen Urine Negative (Negative); Opiate Screen Urine Positive (Negative); Phencyclidine Screen Urine Negative (Negative)
[2021-04-27 05:22] LABS: Add Urine Microscopic? YES; Bacteria Urine Trace /hpf; Color Urine Amber (Yellow); Mucus Urine Moderate /lpf; RBC Urine 0-2 /hpf (0-2); Squamous Epithelial Cell Urine Rare /hpf (Few); WBC Urine 0-3 /hpf (0-3)
[2021-04-27 05:35] LABS: Magnesium 2.1 mg/dL (1.8-2.4)
--- NOTE | 2021-04-27 06:35 | ADMGEN ---
This patient, Manuela Yee, was admitted to 2nd Floor Room 207-2 @ 0555. Patient oriented to hospital policies and general routines including ID bracelet, bed and alarms, visiting hours, pain management, procedures, bathroom and other care routines, personal items, smoking policy, room service/diet, and visiting hours. Pt is alert to self, disoriented to time, place, and situation. Pt yelling out occasionally and responding to unseen stimuli. This nurse at bedside for observation. Information on how to activate the Rapid Response Team has been discussed. Patient are encouraged to report perceived risks to care and to ask questions if they do not understand what they are told or what they should do.
[2021-04-27 06:48] LABS: Alanine Aminotransferase 51 U/L (14-59); Albumin Level 2.8 g/dL (3.4-5.0); Alkaline Phosphatase 180 U/L (46-116); Aspartate Amino Transferase 33 U/L (15-37); Bilirubin,Total 0.6 mg/dL (0.00-1.00); Blood Urea Nitrogen 26 mg/dL (7-18); Carbon Dioxide 27 mmol/L (21-32); Estimated CRCL calculation 60 ml/min; Estimated Glomerular Filt Rate > 60; Glucose 115 mg/dL (70-99); Total Protein 6.6 g/dL (6.4-8.2)
--- NOTE | 2021-04-27 07:00 | PC.NURSE ---
Dr Hou notified of potassium of 2.3, awaiting orders
[2021-04-27 07:01] LABS: Anion Gap 16 mmol/L (8-16); Calcium 8.6 mg/dL (8.5-10.1); Chloride 87 mmol/L (98-108); Osmolality Calculated 275 mOsm/kg (285-295); Sodium 130 mmol/L (136-145)
[2021-04-27 07:02] LABS: Potassium 2.3 mmol/L (3.5-5.1)
[2021-04-27] MEDS: SODIUM CHLORIDE 0.9% IV 1,000 ML 100 ML IV CONT (07:39)
[2021-04-27] MEDS: KCL 20 MEQ/SW 100 ML 100 ML 50 MEQ IVPB ×2 (07:39→09:50)
--- NOTE | 2021-04-27 07:53 | PC.NURSE ---
pt had dark brown emesis, pt still confused, restraints continued
--- NOTE | 2021-04-27 08:30 | PC.NURSE ---
pt linen changed again, pt still combative when attempting to clean pt, still confused at this time
[2021-04-27 08:41] LABS: Hemoglobin A1C 5.6 % (<5.7)
[2021-04-27] MEDS: PANTOPRAZOLE SODIUM IV 40 MG VIAL IV PUSH (08:45)
[2021-04-27 08:49] LABS: Thyroid Stimulating Hormone 2.14 uIU/mL (0.36-3.74)
--- NOTE | 2021-04-27 09:12 | PM.IMHP ---
H&P: HPI History of Present Illness Date/Time: 04/27/21 09:12 this is a 40-year-old female who presented to our ED for altered mental status secondary to drug overdose. Patient has a past medical history of anxiety, bipolar, DVT, encephalopathy possibly due to drug overdose, fibromyalgia, history of DVT, MS and PE. Patient is a poor historian all information obtained from medical records. According to medical records patient was found in her home unresponsive by friends. EMS was called patient was given 2 mg of Narcan with improvement while in the ED she was given an additional 2 g of Narcan. Patient was less admitted to our establishment on 04/04/2021 for drug overdose with similar presentation. Patient did test positive for opiates, amphetamines and benzos WBCs 15.9, hemoglobin 13.5, hematocrit 39.7, platelets 377, sodium 130, potassium 2.3, BUN 26, creatinine 0.92, glucose 150, 124/77, 99, 16, 100.6, 94% on room air, KUB indicates small bowel obstruction. Patient be admitted for drug overdose, hypokalemia and small bowel <ERIK Diamond - Last Filed: 04/27/21 13:39> Chief Complaint: Encephalopathy, overdose, small bowel obstruction <ERIK Diamond - Last Filed: 04/27/21 13:39> Review of Systems Review of Systems: ROS unobtainable: Yes unobtainable due to mental status <ERIK Diamond - Last Filed: 04/27/21 13:39> REPLACED BY [facility] Past Medical History Medical History: Medical History (Updated 04/27/21 @ 09:24 by ERIK Diamond) Anxiety disorder Anxiety disorder, unspecified Bipolar depression Bipolar depression DVT (deep venous thrombosis) Encephalopathy probably due to drug overdose. Encephalopathy Due to drug overdose Fibromyalgia Fibromyalgia Finger fracture, right History of DVT (deep vein thrombosis) Leg arthropathy Multiple sclerosis Multiple sclerosis Pulmonary embolism <ERIK Diamond - Last Filed: 04/27/21 13:39> Surgical History Surgical History: Surgical History (Updated 04/04/21 @ 04:05 by Luis Hou MD) History of cholecystectomy History of mandibular surgery Hx of cholecystectomy <ERIK Diamond - Last Filed: 04/27/21 13:39> Family History Family History: Family History Sibling Hypertension Grandparent Cerebrovascular accident Family history of malignant neoplasm of breast Other Diabetes mellitus Family history of arthritis Family history of malignant neoplasm Family history of multiple sclerosis <ERIK Diamond - Last Filed: 04/27/21 13:39> Social History Social History: Social History Smoking status: Unknown if ever smoked Alcohol intake: unknown Substance use: current Substance use type: amphetamines, opiates and unknown Gender identity (if verbalized by the patient): Female Spiritual care concerns: No <ERIK Diamond - Last Filed: 04/27/21 13:39> Meds Home Medications and Allergies Home medications: Home Medications Medication Instructions Recorded Confirmed Type Unable to Obtain Home Medications 04/27/21 04/27/21 History <ERIK Diamond - Last Filed: 04/27/21 13:39> Allergies/Adverse reactions: Allergies Allergy/AdvReac Type Severity Reaction Status Date / Time hydroxyzine Allergy Severe Anaphylactic Verified 04/03/21 11:51 Shock trazodone Allergy Intermediate hives, Verified 04/03/21 11:51 breathing, makes her mean! propoxyphene Allergy Mild N/V, hives Verified 04/03/21 11:51 buspirone Allergy Unknown Difficulty Verified 04/03/21 11:51 Breathing celecoxib Allergy Unknown hives, n/v Verified 04/03/21 11:51 erythromycin base Allergy Unknown Unknown Verified 04/03/21 11:51 haloperidol Allergy Unknown Unknown Verified 04/03/21 11:51 ibuprofen Allergy Unknown Rash Verified 04/03/21 11:51 ketorolac Allergy
--- NOTE | 2021-04-27 09:13 | PC.NURSE ---
pt resting with eyes closed, no evidence of distress noted
--- NOTE | 2021-04-27 09:19 | ECG_ITS ---
Measurements Intervals Wister Rate: 101 P: 52 WI: 138 QRS: 72 QRSD: 96 T: 30 QT: 405 QTc: 526 Interpretive Statements SINUS TACHYCARDIA INCOMPLETE RIGHT BUNDLE BRANCH BLOCK BORDERLINE ST-T WAVE ABNORMALITY- DIFFUSE LEADS BORDERLINE ECG Electronically Signed On 04-27-2021 10:08:38 CDT by Hilton Madden D.O.
--- NOTE | 2021-04-27 09:29 | PC.NURSE ---
Cardiopulmonary in room to do EKG
[2021-04-27] MEDS: ACETAMINOPHEN 650 MG SUPPOSITORY RECTAL (09:49)
[2021-04-27] MEDS: ENOXAPARIN 40 MG/0.4 ML SYRINGE SUB-Q (09:49)
--- NOTE | 2021-04-27 10:53 | PC.NURSE ---
pt sleeping, no evidence of distress noted, iv infusing per order
--- NOTE | 2021-04-27 11:15 | PC.NURSE ---
pt's mother called and since pt is unable to give permission to speak with family members, basic information about pt given, mother states she will come in after she gets off of work
--- NOTE | 2021-04-27 12:30 | PC.NURSE ---
pt resting, no evidence of distress noted
[2021-04-27 13:22] LABS: Potassium 2.8 mmol/L (3.5-5.1)
--- NOTE | 2021-04-27 13:30 | PC.NURSE ---
pt resting in bed, no evidence of distress noted
--- NOTE | 2021-04-27 14:10 | PC.NURSE ---
pt transported to radiology for CT, pt more awake and can follow directions
--- NOTE | 2021-04-27 14:29 | ED.OVERDOSE ---
HPI - Overdose General Chief Complaint: Overdose Stated Complaint: Possible overdose Time Seen by Provider: 04/27/21 04:10 Source: patient and EMS Mode of arrival: EMS Limitations: altered mental status Related Data Home Medications Medication Instructions Recorded Confirmed Unable to Obtain Home Medications 04/27/21 04/27/21 Allergies Allergy/AdvReac Type Severity Reaction Status Date / Time hydroxyzine Allergy Severe Anaphylactic Verified 04/03/21 11:51 Shock trazodone Allergy Intermediate hives, Verified 04/03/21 11:51 breathing, makes her mean! propoxyphene Allergy Mild N/V, hives Verified 04/03/21 11:51 buspirone Allergy Unknown Difficulty Verified 04/03/21 11:51 Breathing celecoxib Allergy Unknown hives, n/v Verified 04/03/21 11:51 erythromycin base Allergy Unknown Unknown Verified 04/03/21 11:51 haloperidol Allergy Unknown Unknown Verified 04/03/21 11:51 ibuprofen Allergy Unknown Rash Verified 04/03/21 11:51 ketorolac Allergy Unknown Rash Verified 04/03/21 11:51 latex Allergy Unknown Unknown Verified 04/03/21 11:51 levetiracetam Allergy Unknown rash Verified 04/03/21 11:51 (moderate) metaxalone Allergy Unknown break out, Verified 04/03/21 11:51 cannot breathe nalbuphine Allergy Unknown Rash Verified 04/03/21 11:51 naproxen Allergy Unknown Rash Verified 04/03/21 11:51 NSAIDS (Non-Steroidal Allergy Unknown Rash Verified 04/03/21 11:51 Anti-Inflamma risperidone Allergy Unknown Confusion Verified 04/03/21 11:51 (moderate) sulfamethizole Allergy Unknown yeast Verified 04/03/21 11:51 infection (mild) sumatriptan Allergy Unknown hives Verified 04/03/21 11:51 tramadol Allergy Unknown Unknown Verified 04/03/21 11:51 trimethoprim Allergy Unknown yeast Verified 04/03/21 11:51 infection (mild) erythrosine sodium Allergy Hives Verified 04/03/21 11:51 Sulfa (Sulfonamide Allergy Hives Verified 04/03/21 11:51 Antibiotics) diclofenac AdvReac Mild GI UPSET Verified 04/03/21 11:51 lisinopril AdvReac Mild COUGHING Verified 04/03/21 11:51 ondansetron AdvReac Mild sob Verified 04/03/21 11:51 cyclobenzaprine AdvReac Unknown Dizziness Verified 04/03/21 11:51 divalproex sodium AdvReac Unknown Discomfort Verified 04/03/21 11:51 PMF Past Medical History Medical History (Updated 04/27/21 @ 09:24 by ERIK Diamond) Anxiety disorder Anxiety disorder, unspecified Bipolar depression Bipolar depression DVT (deep venous thrombosis) Encephalopathy probably due to drug overdose. Encephalopathy Due to drug overdose Fibromyalgia Fibromyalgia Finger fracture, right History of DVT (deep vein thrombosis) Leg arthropathy Multiple sclerosis Multiple sclerosis Pulmonary embolism Surgical History Surgical History (Updated 04/04/21 @ 04:05 by Luis Hou MD) History of cholecystectomy History of mandibular surgery Hx of cholecystectomy Family History Family History Sibling Hypertension Grandparent Cerebrovascular accident Family history of malignant neoplasm of breast Other Diabetes mellitus Family history of arthritis Family history of malignant neoplasm Family history of multiple sclerosis Social History Social History Smoking status: Unknown if ever smoked Alcohol intake: unknown Substance use: current Substance use type: amphetamines, opiates and unknown Gender identity (if verbalized by the patient): Female Spiritual care concerns: No Course Reevaluation(s) Reevaluation #1: Pt was seen on Inpatient rounds: S: pt was drowsy but awoke to touch and was responsive. Abdominal pain and nausea (Please see Hospitalist ADMINISTRATIVE SUPPORT MANAGER and ED MD notes) O: drowsy but arousable and answered questions appropriately.
[2021-04-27] MEDS: MORPHINE SULFATE (*CRX) 2 MG/ML INJ IV PUSH (14:35)
[2021-04-27 15:10] LABS: Pregnancy On Board Control Positive; Urine Pregnancy Test Negative
[2021-04-27] MEDS: LORazepam INJ (*CRX) 2 MG/ML VIAL 1 MG IV PUSH (15:56)
--- NOTE | 2021-04-27 16:09 | PC.NURSE ---
pt is up at bedside screaming, pt asks for ativan and ice cream, pt reoriented to being npo and the possibility of transfer to [facility], pt agrees, up to commode but refuses to take off diaper until after voiding, pt returns to bed, laying in position, given warm blanket
--- NOTE | 2021-04-27 16:32 | PC.NURSE ---
report called to [facility] at [facility], room is being cleaned at this time, [facility] to call when it is ready
--- NOTE | 2021-04-27 17:20 | PC.NURSE ---
[facility] has called bed is clean, they request we try an ng tube, pt loudly vocalizes no to procedure, pt has small amt of brown emesis in commode, [facility] called for transfer
--- NOTE | 2021-04-27 17:25 | PC.NURSE ---
[facility] until 9am tomorrow morning, Janett king. called
--- NOTE | 2021-04-27 18:29 | PC.NURSE ---
Patient's mother, Beronica, notified of patient being transferred to [facility] room 254.
== END 2021-04-27 18:20 | disposition short-term general hospital (02) ==
LOC: CHSED 04:03 → CHS2ND 05:39
PROVIDERS: Nurse Practitioner; Admitting Provider Emergency Medicine; Emergency Provider Emergency Medicine; PCP Internal Medicine; Visit Provider Emergency Medicine
DX: T40.601A Poisoning by unspecified narcotics, accidental (unintentional), initial encounter (principal); T43.621A Poisoning by amphetamines, accidental (unintentional), initial encounter; T42.4X1A Poisoning by benzodiazepines, accidental (unintentional), initial encounter; K56.609 Unspecified intestinal obstruction, unspecified as to partial versus complete obstruction; E87.8 Other disorders of electrolyte and fluid balance, not elsewhere classified; M79.7 Fibromyalgia; G35 Multiple sclerosis; G93.40 Encephalopathy, unspecified; F41.9 Anxiety disorder, unspecified; F31.9 Bipolar disorder, unspecified; Z86.718 Personal history of other venous thrombosis and embolism; Z86.711 Personal history of pulmonary embolism; Z90.49 Acquired absence of other specified parts of digestive tract
CPT/HCPCS: 36415; 70450; 74018; 74177; 80053; 80307; 81001; 81025; 83036; 83605; 83735; 84132; 84443; 85025; 93005; 96361; 96365; 96366; 96372; 96375; 96376; 99285; A9270; C9113; G0378; G0379; J1650; J2060; J2270; J2310; J2405; J3480; J7030; Q9967

== ENCOUNTER 2021-04-27 19:04 | Inpatient (IN) | payer OTHER, SELFPAY ==
--- NOTE | ~2021-04-27 | XR_ITS ---
EXAMINATION: XR abdomen/kub 1V INDICATION: Constipation TECHNIQUE: Supine view of the abdomen is obtained. COMPARISON: 04/29/2021 FINDINGS: There are persistently dilated loops of small bowel in the pelvis which have decreased in n umber. No free intraperitoneal gas is identified. Enteric contrast from prior small bowel follow-thro ugh is noted in the colon. There is a large volume of colonic stool. Cholecystectomy clips are noted. An intramedullary barbara is present in the left femur. IMPRESSION: 1. Persistently dilated small bowel loops in the pelvis with decrease in number which could reflect r esolving small bowel obstruction. Reviewed, dictated and finalized at location A. IMPRESSION: 1. Persistently dilated small bowel loops in the pelvis with decrease in number which could reflect resolving small bowel obstruction.
--- NOTE | ~2021-04-27 | XR_ITS ---
EXAMINATION: XR abdomen/kub 1V DATE: 04/29/2021 09:21 INDICATION: Bowel obstruction. TECHNIQUE: A supine view of the abdomen was obtained. COMPARISON: Small bowel series 04/28/2021 FINDINGS: There are multiple dilated loops of small bowel. There is a large volume of stool in the co brea. There is oral contrast in the small bowel and colon. Surgical clips in the right upper quadrant are likely from cholecystectomy. IMPRESSION: 1. Persistently dilated small bowel, consistent with distal small bowel obstruction. Reviewed, dictated and finalized at location A. IMPRESSION: 1. Persistently dilated small bowel, consistent with distal small bowel obstruc tion.
--- NOTE | ~2021-04-27 | XR_ITS ---
EXAMINATION: XR sm bowel follow through WS EXAM DATE: 04/28/2021 18:32 INDICATION: Small bowel obstruction. TECHNIQUE: [employer] radiograph was acquired. Water-soluble small bowel exam was performed with 150 mL O mnipaque ingested. Pulsed dose reduction fluoroscopy was used with fluoroscopic time of 0.0 minutes. A total of 11 images obtained for the exam. Correlation is made to CT scan from 04/27/2021. FINDINGS: [employer] image demonstrates contrast within the bladder from prior intravenous injection, left femoral intramedullary barbara, dilated small bowel, and cholecystectomy clips. Initial images demonstrates contrast within stomach and normal calibered proximal jejunum. On the 30 minute examination, after the contrast was entered the jejunum. There is small sliding gastroesophage al hiatal hernia and reflux. Severely distended jejunum and ileum on the 3, 4 and 5 hours images which were obtained. No contrast confirmed within the colon after 5 hours and the exam was ended. IMPRESSION: 1. Distal small bowel obstruction. 2. Small hiatal hernia, reflux. Reviewed, dictated and finalized at location A.
--- NOTE | ~2021-04-27 | XR_ITS ---
EXAMINATION: XR abdomen obstructive series DATE: 05/02/2021 08:32 INDICATION: Partial small bowel obstruction TECHNIQUE: Upright and supine views of the abdomen were obtained. COMPARISON: 04/30/2021 FINDINGS: No free intraperitoneal gas is identified. There are persistently mildly dilated loops of s mall bowel in the pelvis. Cholecystectomy clips are noted. There is an intramedullary barbara in the left femur. IMPRESSION: 1. Persistently dilated small bowel loops, consistent with ileus versus partial obstruction. Reviewed, dictated and finalized at location A.
--- NOTE | 2021-04-27 19:00 | PC.NURSE ---
Patient arrived to the floor via stretcher by [facility]. Patient has emesis on sheets, face and hands. Attempted to clean the patient up and change sheets and the patient refused. The patient continuously repeated leave me alone and just come back later, go away . Attempted to obtain any history from the patient and she refused to answer any questions. Patient only answered orientation questions. Patient is oriented x3.
--- NOTE | 2021-04-27 19:02 | ADMGEN ---
This patient, Manuela Yee, was admitted to 2 Medical Room 254-01. Patient/family oriented to hospital policies and general routines including ID bracelet, bed and alarms, visiting hours, pain management, procedures, bathroom and other care routines, personal items, smoking policy, room service/diet, and visiting hours. Information on how to activate the Rapid Response Team has been discussed. Patient/Family are encouraged to report perceived risks to care and to ask questions if they do not understand what they are told or what they should do.
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
--- NOTE | 2021-04-27 20:00 | PC.NURSE ---
Pt is lethargic and refusing to answer questions. Pt will mumble and curl up into ball.
[2021-04-27] MEDS: NALOXONE HCL 0.4 MG/ML VIAL IV PUSH (20:09)
[2021-04-27] MEDS: SODIUM CHLORIDE 0.9% IV 1,000 ML 100 ML IV CONT (20:09)
--- NOTE | 2021-04-27 20:30 | PC.NURSE ---
Pt is more alert and able to state her name but continues to refuse to answer questions. Pt agitated with care when changing her gown and sheets that had yellow bile all over them. Pt refusing to put on clean gown and rolled over and pulled up blankets.
--- NOTE | 2021-04-27 20:30 | PC.NURSE ---
Spoke with mother Beronica regarding patient care and her refusal to be treated. Beronica answered admission questions with the information that she had available.
--- NOTE | 2021-04-27 21:30 | PC.NURSE ---
Pt is refusing to have blood drawn.
--- NOTE | 2021-04-27 22:32 | PC.NURSE ---
Pt yelling stated was in pain explained reason for NG tube and the benefits of it, attempted to insert NG tube multiple times and patient would pull at tube and refused to allow it to be inserted. Pt is alert at this time and knows name and date of , she was also able to state why she was at hospital but stated could not do it. Pt refused to have NG placed and continues to yell at staff. Pt standing at side of bed with out her gown on and yelling out. I spoke with patient regarding need for the NG and how it would help and that she is only hurting herself by not allowing us to place it. Pt continues to refuse. Pt is unsteady on her feet and will not cooperate
--- NOTE | 2021-04-27 23:37 | PC.NURSE ---
Pt continues to refuse to have NG tube or blood drawn. Pt resting but when asked stated no at this time wishes to wait.
[2021-04-28] VITALS (8 sets, daily range): BP systolic 110–131; BP diastolic 75–81; PULSE 60–111; RESP 16–18; TEMP 35.9–36.7; O2SAT 98; BMI 24.9
--- NOTE | 2021-04-28 05:39 | PC.NURSE ---
Pt continues to refuse NG tube and refused lab (blood draws).
--- NOTE | 2021-04-28 06:40 | PC.NURSE ---
Pt pulled out her IV and is refusing to have it replaced.
--- NOTE | 2021-04-28 06:57 | PC.NURSE ---
Pt still refusing to have IV and refusing labs and NG tube. Hospitalist Dr Gillespie will be made aware per [place] this am.
--- NOTE | 2021-04-28 10:26 | PM.CNGS ---
Assessment and Plan Assessment and plan (1) Small bowel obstruction: Code(s): K56.609 - Unspecified intestinal obstruction, unspecified as to partial versus complete obstruction Status: Acute Assessment and Plan: CT reviewed and discussed with the patient. She has evidence of a small bowel obstruction. In review of previous imaging in the past month, there is evidence of a small bowel obstruction on CT scans, which she ended up being transferred to [place]. Apparently, there has been attempted conservative treatment on a few occasions in the past but she had left AMA. Her history of abdominal surgery includes a laparoscopic cholecystectomy and delivery. We would recommend initially treating this conservatively with NG tube decompression, IV fluids, and bowel rest. She is currently refusing the NG tube and is still vomiting. I discussed the importance of the NG decompression with the patient but she continued to be belligerent and uncooperative. Will get abdominal films today and could consider a Gastrografin small bowel follow through to further assess the obstruction if she is willing to drink the contrast. Continue NPO status for now. Will continue to follow with serial abdominal exams and imaging. (2) Noncompliance: Code(s): Z91.19 - Patient's noncompliance with other medical treatment and regimen Status: Acute Assessment and Plan: Refusing NG tube and apparently has refused treatment in the past and left AMA. Difficult to get a thorough assessment and this limits her ability to be adequately treated. (3) Polysubstance abuse: Code(s): F19.10 - Other psychoactive substance abuse, uncomplicated Status: Acute Assessment and Plan: Urine drug screen is positive for opiates, benzodiazepines, and methamphetamines. This is likely contributing to her issues. Management per Hospitalist for monitoring withdrawal. (4) Esophagitis: Code(s): K20.90 - Esophagitis, unspecified without bleeding Status: Acute Assessment and Plan: Noted on CT scan. On PPI. (5) Psychiatric illness: Code(s): F99 - Mental disorder, not otherwise specified Status: Acute (6) Bipolar disorder: Code(s): F31.9 - Bipolar disorder, unspecified Status: Acute (7) Dehydration: Code(s): E86.0 - Dehydration Status: Acute Additional Plan I have discussed the patient's case and plan of care with Dr. Mendenhall. History of Present Illness Consult details Consult date: 04/28/21 Reason for consult: other (Small-bowel obstruction) Requesting physician: Maritza Cuadra PA-C Narrative: This is a 40-year-old female with a hx of psychiatric illness, hx of DVT and PE noncompliant with anticoagulation, polysubstance and tobacco abuse, and multiple episodes of unintentional drug overdose in the past. She has recently been treated at [facility] for entercolitis, encephalopathy, and unintentional drug overdose with discharge on 04/05/21. She has had imaging over the past month that is suggestive of enterocolitis and in late February a small bowel obstruction, which she apparently was transferred to [place] and left AMA. She is uncooperative for me when questioning her, and refuses to answer majority of my questions. She keeps yelling go away and I won't talk and come back later. Therefore, majority of her history is obtained from review of her electronic medical record. She was found unresponsive at her home and was brought into the ED at [facility] yesterday. She was given Narcan and became more arousable. It was felt she likely had another unintentional drug overdose. Urine drug screen was positive for opiates, benzodiazepines, and methamphetamines. CT scan of the abdomen and pelvis there showed evidence of a small-bowel obstruction and mild wall thickening of some of the small bowel in the lower abdomen. [facility] apparently was called and refused to accept the t
--- NOTE | 2021-04-28 13:19 | PCNSR ---
On 04/28/21, the student,Ingrid Ingram, provided care and completed [facility] documentation on this patient. I have reviewed the student's documentation and agree with the findings.
--- NOTE | 2021-04-28 17:42 | PM.IMPN ---
Progress Note: A&P Assessment and Plan (1) Small bowel obstruction: Code(s): K56.609 - Unspecified intestinal obstruction, unspecified as to partial versus complete obstruction Status: Acute Assessment and Plan: patient is still refusing NG placement just recently allowed IV placement will continue to monitor supportive care She has had several bowel obstructions over the last couple of months but is my understanding that she has left against medical advice from all facilities previously including [facility] in [facility] in [place]. At this time she adamantly refuses NG insertion despite the possibility of worsening condition, aspiration, or even . Aspiration precautions initiated. Elevate head of bed. Zosyn started for possible enteritis. Dr. Mendenhall has been consulted and his input is appreciated. (2) Esophagitis: Code(s): K20.90 - Esophagitis, unspecified without bleeding Status: Acute Assessment and Plan: Noted on CT scan. Start Protonix. (3) Hypokalemia: Code(s): E87.6 - Hypokalemia Status: Acute Assessment and Plan: Treated at outside facility this morning however repeat level was still low thus will order another K rider. continue to monitor refused lab draws today (4) Dehydration: Code(s): E86.0 - Dehydration Status: Acute Assessment and Plan: Continue IV fluid rehydration. no IV access for most of the day just recently IV access placed continue to monitor daily intake and output (5) Polysubstance abuse: Code(s): F19.10 - Other psychoactive substance abuse, uncomplicated Status: Acute Assessment and Plan: Urine drug screen is positive for opiates, benzodiazepines, and methamphetamines. Monitor for withdrawal symptoms. (6) Psychiatric illness: Code(s): F99 - Mental disorder, not otherwise specified Status: Acute Assessment and Plan: Including depression, bipolar disorder, and anxiety. Demonstrates behavioral disturbances today. Subjective Date/time seen: 04/28/21 17:42 can I have something for pain? Review of Systems Review of Systems: ROS unobtainable: Yes other (Limited due to refusal of answering questions, uncooperative.) Gastrointestinal: Gastrointestinal: Reports as per HPI, Reports abdominal pain, Reports nausea and Reports vomiting Exam Narrative: Exam Narrative: laying in bed Const: General: comfortable, no acute distress, well developed, alert and awake Nutritional Appearance: average body habitus Orientation/consciousness: patient oriented x3 HENMT: Head: normal to inspection, normocephalic and atraumatic Ears: hearing grossly normal bilaterally Face and sinus: normal facial exam Eyes: General: appearance normal, both eyes and all related structures Pupils: Equal, round and reactive pupils present EOM: EOMs intact bilaterally Neck: Neck: full ROM, no lymphadenopathy and no JVD Thyroid: thyroid normal Lymphatic: no lymphadenopathy noted Resp: Effort & Inspection: normal respiratory effort and able to speak in complete sentences Auscultation: clear to auscultation bilaterally Cardio: Jugular venous distension: no JVD Rate: regular rate Rhythm: regular rhythm Heart sounds: S1 normal heart sound present and S2 normal heart sound present GI: Inspection: distended GI Palp: Yes Soft to palpation, Yes Tenderness to palpation present (GI) and Yes No hepatosplenomegaly present Auscultation: absent bowel sounds : General: Yes deferred Skin: Rashes: no rashes Wounds: no wounds Neuro: General: patient oriented x3 and CN's II-XI intact bilaterally Cranial nerves: Yes CN's II-XII intact bilaterally and Yes Equal, round and reactive pupils present Cognition (Neuro): normal cognition Speech: normal speech Gait exam (Neuro): Normal gait present Motor exam (neuro): 5/5 motor strength present throughout Extrem: General: normal to in
[2021-04-28] MEDS: PROCHLORPERAZINE EDISYLATE 10 MG/2 ML VIAL IV PUSH (18:22)
[2021-04-28 19:00] LABS: Basophils Absolute Auto 0.1 K/mm3 (0.0-0.1); Basophils Percent Auto 0.3 % (0.2-1.2); Eosinophils Absolute Auto 0.3 K/mm3 (0-0.3); Eosinophils Percent Auto 2.1 % (0-4.4); Hematocrit 37.4 % (37.0-47.0); Hemoglobin 12.2 g/dL (12.0-15.0); Immature Granulocyte Absolute 0.09 K/mm3 (0.00-0.031); Immature Granulocyte Percent A 0.6 % (0-0.5); Lymphocytes Absolute Auto 1.06 K/mm3 (0.9-3.2); Lymphocytes Percent Auto 7.3 % (18.3-44.2); Mean Corpuscular HGB Conc 32.6 g/dl (32-36); Mean Corpuscular Hemoglobin 26.3 pg (26-34); Mean Corpuscular Volume 80.8 fl (80-100); Mean Platelet Volume 8.1 fl (7.4-10.4); Monocytes Absolute Auto 0.9 K/mm3 (0.1-0.6); Monocytes Percent Auto 6.4 % (2.6-8.5); Neutrophils Absolute Auto 12.1 K/mm3 (1.3-6.7); Neutrophils Percent Auto 83.3 % (45.5-73.1); Platelet Count Result 331 k/mm3 (150-375); Red Blood Count 4.63 M/mm3 (4.2-5.4); White Blood Count 14.5 K/mm3 (4.5-10.0)
[2021-04-28 19:08] LABS: Alanine Aminotransferase 26 U/L (4-35); Albumin Level 2.7 g/dL (3.5-5.1); Alkaline Phosphatase 131 U/L (38-126); Anion Gap 5 mmol/L (8-16); Aspartate Amino Transferase 31 U/L (14-36); Bilirubin,Total 0.4 mg/dL (0.2-1.3); Blood Urea Nitrogen 20 mg/dL (7-17); Carbon Dioxide 32 mmol/L (22-30); Chloride 96 mmol/L (98-107); Estimated Glomerular Filt Rate > 60; Glucose 93 mg/dL (65-105); Magnesium 2.1 mg/dL (1.6-2.3); Phosphorus 2.2 mg/dL (2.5-4.5); Sodium 133 mmol/L (137-145)
[2021-04-28] MEDS: PANTOPRAZOLE SODIUM IV 40 MG VIAL IV PUSH (20:45)
[2021-04-28] MEDS: SODIUM CHLORIDE 0.9% IV 1,000 ML 100 ML IV CONT (20:45)
--- NOTE | 2021-04-28 21:38 | ADMGEN ---
Addendum entered by Agata Doe RN 04/28/21 21:41: entered on wrong patient Original Note: This patient, Manuela Yee, was admitted to 2 Medical Room 254-01. Patient/family oriented to hospital policies and general routines including ID bracelet, bed and alarms, visiting hours, pain management, procedures, bathroom and other care routines, personal items, smoking policy, room service/diet, and visiting hours. Information on how to activate the Rapid Response Team has been discussed. Patient/Family are encouraged to report perceived risks to care and to ask questions if they do not understand what they are told or what they should do.
[2021-04-29] VITALS (9 sets, daily range): BP systolic 100–124; BP diastolic 60–79; PULSE 83–125; RESP 16; TEMP 36.4–37.1; O2SAT 97–100
[2021-04-29] MEDS: PROCHLORPERAZINE EDISYLATE 10 MG/2 ML VIAL IV PUSH (04:13)
[2021-04-29] MEDS: SODIUM CHLORIDE 0.9% IV 1,000 ML 100 ML IV CONT (07:56)
[2021-04-29] MEDS: PANTOPRAZOLE SODIUM IV 40 MG VIAL IV PUSH (07:58)
--- NOTE | 2021-04-29 10:03 | PM.PNGS ---
Progress Note: A&P Assessment and Plan (1) Small bowel obstruction: Code(s): K56.609 - Unspecified intestinal obstruction, unspecified as to partial versus complete obstruction Status: Acute Assessment and Plan: SBS reviewed and c/w distal SBO, AXR this am reviewed and does show contrast in colon as well as large colonic stool burden, will given suppository and enema today, serial exams, will allow sips of clears (2) Polysubstance abuse: Code(s): F19.10 - Other psychoactive substance abuse, uncomplicated Status: Acute Assessment and Plan: withdrawl precautions (3) Noncompliance: Code(s): Z91.19 - Patient's noncompliance with other medical treatment and regimen Status: Acute Assessment and Plan: sitter present, pt refusing NG decompression but does express desire to proceed c surgery if necessary Subjective Subjective Date/Time Seen: 04/29/21 10:03 still c/o pain, nausea and emesis improved, wants something to drink, very non-compliant, +flatus Review of Systems Review of Systems: ROS unobtainable: Yes unobtainable due to mental status Exam Const: General: lethargic and tired appearing Nutritional Appearance: average body habitus Resp: Effort & Inspection: normal respiratory effort Auscultation: clear to auscultation bilaterally Cardio: Rate: regular rate Rhythm: regular rhythm GI: Inspection: distended GI Palp: Yes Soft to palpation, Yes Tenderness to palpation present (GI), No Guarding due to palpation present (GI) and No Rigid due to palpation Other: soft, mod dist, diffuse TTP, no peritoneal signs Objective Data Vital Signs Vital Signs: Vital Signs - 24 hr 04/28/21 12:00 04/28/21 14:00 04/28/21 16:00 Temperature 36.7 C Pulse Rate 101 H 60 95 Respiratory Rate 16 Blood Pressure 131/81 Pulse Oximetry 98 04/28/21 20:00 04/29/21 00:00 04/29/21 04:00 Temperature Pulse Rate 95 106 H 125 H Respiratory Rate 16 Blood Pressure Pulse Oximetry 98 04/29/21 06:30 04/29/21 08:00 Temperature 36.6 C Pulse Rate 91 88 Respiratory Rate 16 Blood Pressure 124/79 Pulse Oximetry 97 Intake/Output Intake/Output: Intake & Output 0604/27/21 04/28/21 04/29/21 23:59 23:59 23:59 23:59 Intake Total 1500 1200 Output Total 1050 300 Balance 450 900 Meds/Results Medications: Active Medications Generic Name Dose Route Start Last Admin Trade Name Freq PRN Reason Stop Dose Admin Bisacodyl 10 mg 04/29/21 10:02 Bisacodyl 10 Mg Suppository RECTAL 04/29/21 10:03 ONCE ONE Sodium Chloride 1,000 mls @ 100 mls/hr 04/27/21 19:05 04/29/21 07:56 Normal Saline Iv IV CONT 100 mls/hr .Q10H CHASIDY Administration Piperacillin/Tazobactam/Dextrose 3.375 gm in 50 mls @ 100 mls/hr 04/28/21 00:00 04/29/21 06:15 Zosyn 3.375 Gm/D5w 50ml Pm IVPB Infused Q6H CHASIDY Infusion Acetaminophen 1,000 mg in 100 mls @ 400 mls/hr 04/28/21 17:40 04/29/21 04:30 Ofirmev 1,000 Mg Ivpb IVPB 04/29/21 17:41 Infused Q6H PRN Infusion Pain Rated 4-6 Pantoprazole Sodium 40 mg 04/28/21 09:00 04/29/21 07:58 Pantoprazole Sodium Iv 40 Mg Vial IV PUSH 40 mg Q12HR CHASIDY Administration Prochlorperazine Edisylate 10 mg 04/28/21 17:39 04/29/21 04:13 Prochlorperazine Edisylate 10 Mg/2 Ml Vial IV PUSH 10 mg Q6H PRN Administration Nausea And Vomiting Radiology Results: ITS Impressions Small Bowel X-Ray 04/28/21 18:34 IMPRESSION: 1. Distal small bowel obstruction. 2. Small hiatal hernia, reflux. Abdomen X-Ray 04/29/21 09:22 IMPRESSION: 1. Persistently dilated small bowel, consistent with distal small bowel obstruction. Labs Labs: Laboratory Results - last 24 hr 04/28/21 04/28/21 18:53 18:53 WBC 14.5 H RBC 4.63 Hgb 12.2 Hct 37.4 MCV 80.8 MCH 26.3 MCHC 32.6 RDW 15.0 H Plt Count 331 MPV 8.1 Immature Gran % (Auto) 0.6 H Neut % (Auto)
[2021-04-29] MEDS: BISACODYL 10 MG SUPPOSITORY RECTAL (10:40)
--- NOTE | 2021-04-29 15:02 | PM.IMPN ---
Progress Note: A&P Assessment and Plan (1) Small bowel obstruction: Code(s): K56.609 - Unspecified intestinal obstruction, unspecified as to partial versus complete obstruction Status: Acute Assessment and Plan: has had several bowel movements today more in line with constipation continue supportive care started p.o. patient is still refusing NG placement just recently allowed IV placement will continue to monitor supportive care She has had several bowel obstructions over the last couple of months but is my understanding that she has left against medical advice from all facilities previously including [place] in [facility] in [place]. At this time she adamantly refuses NG insertion despite the possibility of worsening condition, aspiration, or even . Aspiration precautions initiated. Elevate head of bed. Zosyn started for possible enteritis. Dr. Mendenhall has been consulted and his input is appreciated. (2) Esophagitis: Code(s): K20.90 - Esophagitis, unspecified without bleeding Status: Acute Assessment and Plan: Noted on CT scan. Start Protonix. (3) Hypokalemia: Code(s): E87.6 - Hypokalemia Status: Acute Assessment and Plan: Treated at outside facility this morning however repeat level was still low thus will order another K rider. continue to monitor refused lab draws today (4) Dehydration: Code(s): E86.0 - Dehydration Status: Acute Assessment and Plan: has been started on p.o. Advance as tolerated Push oral fluids (5) Polysubstance abuse: Code(s): F19.10 - Other psychoactive substance abuse, uncomplicated Status: Acute Assessment and Plan: Urine drug screen is positive for opiates, benzodiazepines, and methamphetamines. Monitor for withdrawal symptoms. (6) Psychiatric illness: Code(s): F99 - Mental disorder, not otherwise specified Status: Acute Assessment and Plan: Including depression, bipolar disorder, and anxiety. Demonstrates behavioral disturbances today. Subjective Date/time seen: 04/29/21 15:02 pleasantly sleep Review of Systems Review of Systems: ROS unobtainable: Yes other (Limited due to refusal of answering questions, uncooperative.) Gastrointestinal: Gastrointestinal: Reports as per HPI, Reports abdominal pain, Reports nausea and Reports vomiting Exam Narrative: Exam Narrative: laying in bed Const: General: comfortable, no acute distress, well developed, alert and awake Nutritional Appearance: average body habitus Orientation/consciousness: patient oriented x3 HENMT: Head: normal to inspection, normocephalic and atraumatic Ears: hearing grossly normal bilaterally Face and sinus: normal facial exam Eyes: General: appearance normal, both eyes and all related structures Pupils: Equal, round and reactive pupils present EOM: EOMs intact bilaterally Neck: Neck: full ROM, no lymphadenopathy and no JVD Thyroid: thyroid normal Lymphatic: no lymphadenopathy noted Resp: Effort & Inspection: normal respiratory effort and able to speak in complete sentences Auscultation: clear to auscultation bilaterally Cardio: Jugular venous distension: no JVD Rate: regular rate Rhythm: regular rhythm Heart sounds: S1 normal heart sound present and S2 normal heart sound present GI: Inspection: distended Auscultation: absent bowel sounds : General: Yes deferred Skin: Rashes: no rashes Wounds: no wounds Neuro: General: patient oriented x3 and CN's II-XI intact bilaterally Cranial nerves: Yes CN's II-XII intact bilaterally and Yes Equal, round and reactive pupils present Cognition (Neuro): normal cognition Speech: normal speech Gait exam (Neuro): Normal gait present Motor exam (neuro): 5/5 motor strength present throughout Extrem: General: normal to inspection, full ROM, no joint enlargement and no pedal edema Objective Data
[2021-04-29] MEDS: ACETAMINOPHEN 500 MG TABLET 1000 MG PO ×2 (17:33→23:39)
[2021-04-29] MEDS: PANTOPRAZOLE 40 MG TABLET PO (20:00)
[2021-04-29] MEDS: polyethylene glycoL 3350 17 GM POWD.PACK PO (20:00)
[2021-04-30] VITALS (7 sets, daily range): BP systolic 111–114; BP diastolic 61–77; PULSE 80–99; RESP 16–18; TEMP 36.1–36.6; O2SAT 98–100
[2021-04-30] MEDS: ONDANSETRON HCL ODT 4 MG TABLET PO ×3 (00:22→22:51)
--- NOTE | 2021-04-30 02:24 | PC.NURSE ---
04/29/21 at 2126 Pt refused for lab to draw her labs. She is refusing for anymore sticks at this time.
--- NOTE | 2021-04-30 03:03 | PC.NURSE ---
Pt is refusing an IV access to be placed and labs to be drawn. Lab Martha went into room at 2126 on 04/30/21 and attempted to draw labs she missed with the first stick and patient refused for her to re stick her. Updated Dr that her labs were last done on 04/28 her potassium and sodium was low at that time. Pt is requesting Compazine IM she is c/o of her stomach hurting. After requesting Compazine IM She ate 3 Jellos and drank a soda. No emesis at this time. Will monitor closely.
--- NOTE | 2021-04-30 03:36 | PC.NURSE ---
Pt called me in the room and said she was going to vomit. I handed her the emesis bag and she would not grab it and she spit/vomit her jello out on the floor. She then asked for more jello and I explained to her we should back off on liquids if she is going to vomit and c/o of nausea. She also is saying her stomach hurts. She put her call light on again requesting more jello. I explained to her that we are not going to give her more jello at this time.
[2021-04-30] MEDS: ACETAMINOPHEN 500 MG TABLET 1000 MG PO ×3 (05:40→18:26)
[2021-04-30 07:50] LABS: Hematocrit 29.3 % (37.0-47.0); Mean Corpuscular HGB Conc 34.1 g/dl (32-36); Mean Corpuscular Hemoglobin 26.2 pg (26-34); Mean Corpuscular Volume 76.9 fl (80-100); Mean Platelet Volume 8.4 fl (7.4-10.4); Platelet Count Result 310 k/mm3 (150-375); Red Blood Count 3.81 M/mm3 (4.2-5.4); Red Cell Distribution Width 14.4 % (11.5-14.5); White Blood Count 12.4 K/mm3 (4.5-10.0)
[2021-04-30 07:56] LABS: Alanine Aminotransferase 18 U/L (4-35); Albumin Level 2.2 g/dL (3.5-5.1); Alkaline Phosphatase 102 U/L (38-126); Anion Gap 5 mmol/L (8-16); Aspartate Amino Transferase 25 U/L (14-36); Bilirubin,Total 0.3 mg/dL (0.2-1.3); Blood Urea Nitrogen 12 mg/dL (7-17); Calcium 7.3 mg/dL (8.4-10.2); Carbon Dioxide 27 mmol/L (22-30); Chloride 99 mmol/L (98-107); Estimated Glomerular Filt Rate > 60; Glucose 88 mg/dL (65-105); Potassium 2.7 mmol/L (3.4-5.0); Sodium 131 mmol/L (137-145)
[2021-04-30] MEDS: POTASSIUM CHLORIDE 20 MEQ TABLET 40 MEQ PO ×2 (09:12→15:08)
[2021-04-30] MEDS: PANTOPRAZOLE 40 MG TABLET PO ×2 (09:12→20:47)
--- NOTE | 2021-04-30 11:48 | PM.PNGS ---
Progress Note: A&P Assessment and Plan (1) Small bowel obstruction: Code(s): K56.609 - Unspecified intestinal obstruction, unspecified as to partial versus complete obstruction Status: Acute Assessment and Plan: SBS reviewed and c/w distal SBO, AXR yesterday am reviewed and does show contrast in colon as well as large colonic stool burden,( Today x-ray shows mild dilated loops of small bowel which arm proved compared to previous x-ray and still a good amount of stool in the colon). will give Miralax if N & V become less prominent. Contihue serial exams and AXR's, will allow sips of clears. I will try Q 12 our Compazine suppositories and see if this helps her nausea. If not nauseated will ask her to take MiraLax to keep clearing out the colon. (2) Polysubstance abuse: Code(s): F19.10 - Other psychoactive substance abuse, uncomplicated Status: Acute Assessment and Plan: withdrawl precautions (3) Noncompliance: Code(s): Z91.19 - Patient's noncompliance with other medical treatment and regimen Status: Acute Assessment and Plan: sitter present, pt refusing NG decompression but does express desire to proceed c surgery if necessary Additional Plan I have discussed the patient's case and plan of care with Dr. Mendenhall before the call turnover yesterday. Subjective Subjective Date/Time Seen: 04/30/21 11:48 patient lying bed curled on her left side. Nurse reports several emesis. Patient still Lucia naked in bed covered with her sheets. Apparently did have 2 stools while in the shower. Has had multiple stools overnight. Still complain of some abdominal pain. She states she has does not think she is much better than when she came in. States she is willing to try to take something as laxative later today. ( MiraLax ordered) Review of Systems Review of Systems: ROS unobtainable: Yes unobtainable due to mental status Constitutional: Constitutional: Reports lethargy and Reports malaise Gastrointestinal: Gastrointestinal: Reports as per HPI, Reports abdominal pain, Reports nausea ( no IV present so trying to use oral Zofran) and Reports vomiting ( appears to be mainly oral secretions) Comments: patient states that Compazine has helped her in the past. Exam Const: General: comfortable, no acute distress, lethargic, poor hygiene, tired appearing and other (eyes closed even with few verbal responses) Nutritional Appearance: average body habitus and thin Orientation/consciousness: lethargic and Other orientation findings (BENNY due to refusal of answering questions) Limitations: behavioral limitations HENMT: Head: normocephalic and atraumatic Ears: hearing grossly normal bilaterally Eyes: General: appearance normal, both eyes and all related structures Sclera: sclerae normal Neck: Neck: normal visual inspection Resp: Effort & Inspection: normal respiratory effort and no respiratory distress Auscultation: clear to auscultation bilaterally Cardio: Rate: regular rate Rhythm: regular rhythm GI: Inspection: normal to inspection, scar (small trochar scars) and no visible herniation Auscultation: normal bowel sounds Rectal Exam: deferred Other: soft, mod dist, diffuse TTP, no peritoneal signs. Good bowel sounds on auscultation Skin: General skin exam: normal color Neuro: General: moves all extremities Speech: normal speech Other: Exam limited due to lack of cooperation Extrem: General: normal to inspection and no clubbing, cyanosis or edema Psych: Appearance: disheveled Affect: Hostile affect present and Irritable affect present Attitude: Belligerent attititude/behavior present, Avoids eye contact (attititude/behavior) and Refuses to answer (attititude/behavior) Insight: Limited insight present (Psych) Judgement: Limited judgement present (Psych) Objective Data Vital Signs Vital Signs: Vital Signs - 24 hr 04/29/21 12:00 04/29/21 14:00 04/29/21 16:00 Temperatur
--- NOTE | 2021-04-30 15:04 | PM.IMPN ---
Progress Note: A&P Assessment and Plan (1) Small bowel obstruction: Code(s): K56.609 - Unspecified intestinal obstruction, unspecified as to partial versus complete obstruction Status: Acute Assessment and Plan: PATIENT HAS HAD SEVERAL EPISODES OF NAUSEA AND VOMITING TODAY ABDOMINAL X-RAY SHOWS SIGNIFICANT IS STOOL AMOUNT IN THE COLON BUT CONTRAST FOLLOWS THROUGH CONTINUE SUPPORTIVE CARE APPRECIATE SURGERY NOTE HAVING BOWEL MOVEMENTS has had several bowel movements today more in line with constipation continue supportive care started p.o. patient is still refusing NG placement just recently allowed IV placement will continue to monitor supportive care She has had several bowel obstructions over the last couple of months but is my understanding that she has left against medical advice from all facilities previously including [place] in [facility] in [place]. At this time she adamantly refuses NG insertion despite the possibility of worsening condition, aspiration, or even . Aspiration precautions initiated. Elevate head of bed. Zosyn started for possible enteritis. Dr. Mendenhall has been consulted and his input is appreciated. (2) Esophagitis: Code(s): K20.90 - Esophagitis, unspecified without bleeding Status: Acute Assessment and Plan: Noted on CT scan. Protonix. (3) Hypokalemia: Code(s): E87.6 - Hypokalemia Status: Acute Assessment and Plan: Treated at outside facility this morning however repeat level was still low thus will order another K rider. continue to monitor (4) Dehydration: Code(s): E86.0 - Dehydration Status: Acute Assessment and Plan: has been started on p.o. Advance as tolerated Push oral fluids (5) Polysubstance abuse: Code(s): F19.10 - Other psychoactive substance abuse, uncomplicated Status: Acute Assessment and Plan: Urine drug screen is positive for opiates, benzodiazepines, and methamphetamines. Monitor for withdrawal symptoms. (6) Psychiatric illness: Code(s): F99 - Mental disorder, not otherwise specified Status: Acute Assessment and Plan: Including depression, bipolar disorder, and anxiety. Demonstrates behavioral disturbances today. Subjective Date/time seen: 04/30/21 15:04 Review of Systems Review of Systems: ROS unobtainable: Yes other (Limited due to refusal of answering questions, uncooperative.) Gastrointestinal: Gastrointestinal: Reports as per HPI, Reports abdominal pain, Reports nausea and Reports vomiting Exam Narrative: Exam Narrative: laying in bed Const: General: comfortable, no acute distress, well developed, alert, awake, lethargic, poor hygiene, tired appearing and other (eyes closed even with few verbal responses) Nutritional Appearance: average body habitus and thin Orientation/consciousness: patient oriented x3, lethargic and Other orientation findings (BENNY due to refusal of answering questions) Limitations: behavioral limitations HENMT: Head: normal to inspection, normocephalic and atraumatic Ears: hearing grossly normal bilaterally Face and sinus: normal facial exam Eyes: General: appearance normal, both eyes and all related structures Sclera: sclerae normal Pupils: Equal, round and reactive pupils present EOM: EOMs intact bilaterally Neck: Neck: normal visual inspection, full ROM, no lymphadenopathy and no JVD Thyroid: thyroid normal Lymphatic: no lymphadenopathy noted Resp: Effort & Inspection: normal respiratory effort, able to speak in complete sentences and no respiratory distress Auscultation: clear to auscultation bilaterally Cardio: Jugular venous distension: no JVD Rate: regular rate Rhythm: regular rhythm Heart sounds: S1 normal heart sound present and S2 normal heart sound present GI: Inspection: normal to inspection, distended, scar (small trochar
[2021-04-30] MEDS: PROCHLORPERAZINE 25 MG SUPP.RECT RECTAL (17:15)
--- NOTE | 2021-04-30 22:16 | PC.NURSE ---
Pt was threatening to leave AMA to DISC SANDER and patient sitter. When I asked her what was wrong and why she wanted to leave AMA she would not respond and pretended to be sleeping. Pt has defecated in her bed multiple times even with a bedside commode present.
--- NOTE | 2021-05-01 00:04 | PC.NURSE ---
0000 Pt again threatened to leave AMA. I asked pt to make sure she had transportation to leave before giving her the paperwork. Pt states mother refused to come pick her up.
--- NOTE | 2021-05-01 00:11 | PC.NURSE ---
0000 Pt again asked to leave AMA. I told her she needed transportation in order for me to be able to give her the AMA paperwork to sign. She called her mother who refused to pick her up. I also called and spoke with the mother and she said she did not feel comfortable coming to pick the pt up because of her mental state. Pt continues to scream from room, sitter at bedside.
[2021-05-01] MEDS: ACETAMINOPHEN 500 MG TABLET 1000 MG PO ×4 (00:33→18:13)
[2021-05-01] MEDS: ONDANSETRON HCL ODT 4 MG TABLET PO ×3 (03:06→21:19)
[2021-05-01 05:35] VITALS: BP 121/76; PULSE 89; RESP 16; TEMP 36.6; O2SAT 97
--- NOTE | 2021-05-01 06:12 | PC.NURSE ---
0600 Entered room to pt standing in front of the sink splashing water and trying to drink even though she is NPO. GAMBRELER HELPER also in bathroom attempting to help pt clean up after defecating on self. Pt defecated on the floor and also splashed water everywhere so the floor was wet. Attempted to assist pt back to bed but would not let the aid touch her. She began screaming being verbally abusive towards the aid. When back in bed the aid tried to clean the pts bottom and the pt yelled explicit language.
[2021-05-01] MEDS: PANTOPRAZOLE 40 MG TABLET PO ×2 (08:45→21:12)
--- NOTE | 2021-05-01 12:43 | PM.IMPN ---
Progress Note: A&P Assessment and Plan (1) Small bowel obstruction: Code(s): K56.609 - Unspecified intestinal obstruction, unspecified as to partial versus complete obstruction Status: Acute Assessment and Plan: WHO WILL TRY ORAL INTAKE TODAY FOLLOW SURGERY RECOMMENDATIONS SUPPORTIVE CARE PATIENT HAS HAD SEVERAL EPISODES OF NAUSEA AND VOMITING TODAY ABDOMINAL X-RAY SHOWS SIGNIFICANT STOOL AMOUNT IN THE COLON BUT CONTRAST FOLLOWS THROUGH CONTINUE SUPPORTIVE CARE APPRECIATE SURGERY NOTE HAVING BOWEL MOVEMENTS has had several bowel movements today more in line with constipation continue supportive care started p.o. patient is still refusing NG placement just recently allowed IV placement will continue to monitor supportive care She has had several bowel obstructions over the last couple of months but is my understanding that she has left against medical advice from all facilities previously including [place] in [facility] in [place]. At this time she adamantly refuses NG insertion despite the possibility of worsening condition, aspiration, or even . Aspiration precautions initiated. Elevate head of bed. Zosyn started for possible enteritis. Dr. Mendenhall has been consulted and his input is appreciated. (2) Esophagitis: Code(s): K20.90 - Esophagitis, unspecified without bleeding Status: Acute Assessment and Plan: Noted on CT scan. Protonix. (3) Hypokalemia: Code(s): E87.6 - Hypokalemia Status: Acute Assessment and Plan: Treated at outside facility this morning however repeat level was still low thus will order another K rider. continue to monitor (4) Dehydration: Code(s): E86.0 - Dehydration Status: Acute Assessment and Plan: has been started on p.o. Advance as tolerated Push oral fluids (5) Polysubstance abuse: Code(s): F19.10 - Other psychoactive substance abuse, uncomplicated Status: Acute Assessment and Plan: Urine drug screen is positive for opiates, benzodiazepines, and methamphetamines. Monitor for withdrawal symptoms. (6) Psychiatric illness: Code(s): F99 - Mental disorder, not otherwise specified Status: Acute Assessment and Plan: Including depression, bipolar disorder, and anxiety. Demonstrates behavioral disturbances today. Subjective Date/time seen: 05/01/21 12:43 I WANT SOMETHING FOR MY ANXIETY Review of Systems Review of Systems: ROS unobtainable: Yes other (Limited due to refusal of answering questions, uncooperative.) Gastrointestinal: Gastrointestinal: Reports as per HPI, Reports abdominal pain, Reports nausea and Reports vomiting Exam Narrative: Exam Narrative: laying in bed Const: General: comfortable, no acute distress, well developed, alert, awake, lethargic, poor hygiene, tired appearing and other (eyes closed even with few verbal responses) Nutritional Appearance: average body habitus and thin Orientation/consciousness: patient oriented x3, lethargic and Other orientation findings (BENNY due to refusal of answering questions) Limitations: behavioral limitations HENMT: Head: normal to inspection, normocephalic and atraumatic Ears: hearing grossly normal bilaterally Face and sinus: normal facial exam Eyes: General: appearance normal, both eyes and all related structures Sclera: sclerae normal Pupils: Equal, round and reactive pupils present EOM: EOMs intact bilaterally Neck: Neck: normal visual inspection, full ROM, no lymphadenopathy and no JVD Thyroid: thyroid normal Lymphatic: no lymphadenopathy noted Resp: Effort & Inspection: normal respiratory effort, able to speak in complete sentences and no respiratory distress Auscultation: clear to auscultation bilaterally Cardio: Jugular venous distension: no JVD Rate: regular rate Rhythm: regular rhythm Heart sounds: S1 normal hea
--- NOTE | 2021-05-01 16:34 | PM.PNGS ---
Progress Note: A&P Assessment and Plan (1) Small bowel obstruction: Code(s): K56.609 - Unspecified intestinal obstruction, unspecified as to partial versus complete obstruction Status: Acute Assessment and Plan: SBS From 04/29 reviewed and c/w distal SBO, AXR yesterday AM reviewed and does show contrast in colon as well as large colonic stool burden with a few dilated SB loops in the peslvis. Iwill order a obs series for tomorrow AM again. Agree with her day nurses plan to use incentives (ie no vomiting) to then allow pt to slowly advance her dieet since she is having multiple stools and the ileus vs SBO is therefore cli,ically resolved. will give Miralax again this PM if N & V is prominent. Continue serial exams and AXR's. Ok with me to resume some form on po anti-anxiety med. Let's try to limt her pain meds to po tylenol if possible. I will try Q 12 our Compazine suppositories and see if this helps her nausea. If not nauseated will ask her to take MiraLax to keep clearing out the colon. (2) Polysubstance abuse: Code(s): F19.10 - Other psychoactive substance abuse, uncomplicated Status: Acute Assessment and Plan: withdrawl precautions (3) Noncompliance: Code(s): Z91.19 - Patient's noncompliance with other medical treatment and regimen Status: Acute Assessment and Plan: There is a sitter present, pt refusing NG decompression, but did express desire to proceed c surgery if necessary. Since pt having multiple stools now this looks very unlikely to be needed. Subjective Subjective Date/Time Seen: 05/01/21 10:34 Pt. lying on her back in bed when I entered the room. Nurse reports pt is having less issues with vomiting and is humgry and trying javed pudding now. She also reports pt had another fairly large BM in the shower this AM. Pt seems more alert to me today and states that she still has some abdominal pain and is anxious. Requesting Ativan by name. Review of Systems Review of Systems: Narrative: Pt. gives limited history due to her mental state Constitutional: Constitutional: Reports daytime sleepiness, Reports lethargy and Reports malaise Gastrointestinal: Gastrointestinal: Reports as per HPI, Reports abdominal pain (points maily to lower mid-abdomen as nissa of pain), Reports nausea ( no IV present so trying to use oral Zofran) and Reports vomiting ( appears to be mainly oral secretions/ nurse reports no emesis since 7 AM) Exam Const: General: comfortable, no acute distress, lethargic, poor hygiene, tired appearing and other (eyes closed even with few verbal responses) Nutritional Appearance: average body habitus and thin Orientation/consciousness: lethargic and Other orientation findings (BENNY due to refusal of answering questions) Limitations: behavioral limitations HENMT: Head: normocephalic and atraumatic Ears: hearing grossly normal bilaterally Eyes: General: appearance normal, both eyes and all related structures Sclera: sclerae normal Neck: Neck: normal visual inspection Resp: Effort & Inspection: normal respiratory effort and no respiratory distress Auscultation: clear to auscultation bilaterally Cardio: Rate: regular rate Rhythm: regular rhythm GI: Inspection: normal to inspection, scar (small trochar scars) and no visible herniation Auscultation: normal bowel sounds Rectal Exam: deferred Other: soft, mod dist, TTP across lower abd, no peritoneal signs. Good bowel sounds on auscultation Skin: General skin exam: normal color Neuro: General: moves all extremities Speech: normal speech Other: Exam limited due to lack of cooperation Extrem: General: normal to inspection and no clubbing, cyanosis or edema Psych: Appearance: disheveled Affect: Hostile affect present and Irritable affect present Attitude: Belligerent attititude/behavior present, Avoids eye contact (attititude/behavior) and Refuses to answer (attititude/behavior) Insight: Limited
[2021-05-01 20:00] VITALS: PULSE 94; RESP 18; O2SAT 100
[2021-05-01 20:41] VITALS: BP 117/74; PULSE 94; RESP 18; TEMP 36.9; O2SAT 100
[2021-05-01] MEDS: DICYCLOMINE HCL 10 MG CAPSULE 20 MG PO (21:52)
[2021-05-01] MEDS: LORazepam (*CRX) 0.5 MG TABLET PO (21:52)
[2021-05-02] MEDS: ACETAMINOPHEN 500 MG TABLET 1000 MG PO ×3 (00:26→12:21)
[2021-05-02] MEDS: LORazepam (*CRX) 0.5 MG TABLET PO ×3 (03:34→21:46)
[2021-05-02] MEDS: PROCHLORPERAZINE 25 MG SUPP.RECT RECTAL (04:36)
[2021-05-02 05:07] VITALS: BP 103/60; PULSE 89; RESP 18; TEMP 36.7; O2SAT 96
[2021-05-02 05:34] LABS: Basophils Absolute Auto 0.1 K/mm3 (0.0-0.1); Basophils Percent Auto 0.5 % (0.2-1.2); Eosinophils Absolute Auto 0.1 K/mm3 (0-0.3); Eosinophils Percent Auto 0.4 % (0-4.4); Hematocrit 33.5 % (37.0-47.0); Hemoglobin 11.3 g/dL (12.0-15.0); Immature Granulocyte Absolute 0.23 K/mm3 (0.00-0.031); Immature Granulocyte Percent A 1.5 % (0-0.5); Lymphocytes Absolute Auto 3.18 K/mm3 (0.9-3.2); Lymphocytes Percent Auto 20.1 % (18.3-44.2); Mean Corpuscular HGB Conc 33.7 g/dl (32-36); Mean Corpuscular Hemoglobin 26.3 pg (26-34); Mean Corpuscular Volume 77.9 fl (80-100); Mean Platelet Volume 8.7 fl (7.4-10.4); Monocytes Absolute Auto 1.2 K/mm3 (0.1-0.6); Monocytes Percent Auto 7.5 % (2.6-8.5); Neutrophils Absolute Auto 11.1 K/mm3 (1.3-6.7); Platelet Count Result 335 k/mm3 (150-375); Red Cell Distribution Width 14.9 % (11.5-14.5); White Blood Count 15.8 K/mm3 (4.5-10.0)
[2021-05-02 05:46] LABS: Lactic Acid Reflex 1.3 mmol/L (0.7-2.1)
[2021-05-02 05:55] LABS: Alanine Aminotransferase 15 U/L (4-35); Albumin Level 2.4 g/dL (3.5-5.1); Alkaline Phosphatase 119 U/L (38-126); Anion Gap 8 mmol/L (8-16); Aspartate Amino Transferase 15 U/L (14-36); Bilirubin,Total 0.2 mg/dL (0.2-1.3); Blood Urea Nitrogen 10 mg/dL (7-17); Calcium 7.6 mg/dL (8.4-10.2); Carbon Dioxide 19 mmol/L (22-30); Chloride 103 mmol/L (98-107); Estimated Glomerular Filt Rate > 60; Glucose 101 mg/dL (65-105); Lipase 269 U/L (23-300); Magnesium 1.4 mg/dL (1.6-2.3); Potassium 2.8 mmol/L (3.4-5.0); Sodium 130 mmol/L (137-145)
[2021-05-02] MEDS: POTASSIUM CHLORIDE 20 MEQ TABLET 40 MEQ PO (07:29)
[2021-05-02] MEDS: PANTOPRAZOLE 40 MG TABLET PO ×2 (08:00→21:44)
[2021-05-02] MEDS: HYDROmorphone HCL INJ (*CRX) 1 MG/ML SYR 0.5 MG IV PUSH (09:47)
--- NOTE | 2021-05-02 10:04 | PCNFU ---
Nutrition Follow-Up Complete: Altered GI function related to poor appetite and nausea as evidenced by small bowel obstruction. Goal: Have patient meet estimated nutritional needs. Patient is progressing towards goal. We will continue current. Pt current nutrition is Low Fiber. Last recorded weight is 56 kg, no new weight to report. Bowel Motility:+BM reported 05/02 Labs Reviewed:Cr 0.4,K 2.8,Alb 2.4,Na 130,Hct 33.5,Hgb 11.3 Meds Noted:Zofran,Ativan,Protonix Additional Notes: Patient seen today for nutrition follow up. KUB ordered. Patient states appetite is improving, overall intake has been 75-95% of most meals. Patient asked for a quesadilla for lunch. Nursing called MD to ask for diet order change to low fiber diet vs soft and bite sized, Level 6 diet, due to no swallowing issues. Agree with diet orders. Monitoring:Will follow up in 5 days.
[2021-05-02] MEDS: MAGNESIUM SULF 2 GM/WATER 50ML 2 GM/50 ML BAG IVPB (10:50)
[2021-05-02] MEDS: METOCLOPRAMIDE HCL 5 MG TABLET PO ×3 (11:43→21:44)
--- NOTE | 2021-05-02 12:17 | PM.PNGS ---
Progress Note: A&P Assessment and Plan (1) Small bowel obstruction: Code(s): K56.609 - Unspecified intestinal obstruction, unspecified as to partial versus complete obstruction Status: Acute Assessment and Plan: SBS From 04/29 reviewed and c/w distal SBO, AXR from 04/30 in the AM reviewed and does show contrast in colon as well as large colonic stool burden with a few dilated SB loops in the pelvis. X-ray from today looks like there is some gas in the stomach which may explain her nausea. Rest of the abdomen is fairly gasless and looks like some of the stool is cleared from her colon. Awaiting the final radiology read on the x-ray from today 05/02. Agree with her day nurses plan to use incentives (ie no vomiting) to then allow pt to slowly advance her dieet since she is having multiple stools and the ileus vs SBO is therefore clinically resolved. I will give Miralax again this PM if N & V is prominent. Continue serial exams and AXR's. Ok with me to resume some form on po anti-anxiety med. Let's try to limt her pain meds to po tylenol if possible. Discussed with Dr. Schumacher. She believes some of her abdominal cramping may be on the basis of drug withdrawal period she is checking on some help for that. In the meantime consider trying 5 mg Reglan p.o. 1-1/2 hour to 1 hour prior to each meal and at bedtime. I will try Q 12 our Compazine suppositories and see if this helps her nausea. If not nauseated will ask her to take MiraLax to keep clearing out the colon. (2) Polysubstance abuse: Code(s): F19.10 - Other psychoactive substance abuse, uncomplicated Status: Acute Assessment and Plan: withdrawl precautions (3) Noncompliance: Code(s): Z91.19 - Patient's noncompliance with other medical treatment and regimen Status: Acute Assessment and Plan: There is a sitter present, pt refusing NG decompression, but did express desire to proceed c surgery if necessary. Since pt having multiple stools now this looks very unlikely to be needed. Additional Plan I have discussed the patient's case and plan of care with Dr. Schumacher. We agree that it appears that there is no bowel obstruction requiring surgical intervention at this time. Subjective Subjective Date/Time Seen: 05/02/21 10:17 Patient again lying on her left side when I came in the room.( I have been coating her to lay more a right-sided possible since her stomach empty that way). She is complaining of lots of abdominal pain. Nurse reports she had 2 emesis of pa significant amount (states it looked like the choclate milk she just drank). h Plain films of the abd. by my review show a significant gastric bubble and not much else gas in the abdomen. Stool seems to have cleared some since the last abdominal x-ray With scope which correlates clinically with the number of bowel movements she has had over the last 2 days.. Had a thorough discussion with the patient again and encouraged her to walk in the hallways, limit pain medication, and try to tolerate her diet is if at all possible. Offer to consider use of Reglan prior to meals and at bedtime to decrease nausea. Patient states that usually gabapentinum at home helps her abdominal pain. Review of Systems Review of Systems: ROS unobtainable: Yes unobtainable due to mental status Constitutional: Constitutional: Reports daytime sleepiness, Reports lethargy and Reports malaise Gastrointestinal: Gastrointestinal: Reports as per HPI, Reports abdominal pain (points maily to lower mid-abdomen as site of pain. Lt > RT.), Reports constipation, Reports nausea ( no IV present so trying to use oral Zofran) and Reports vomiting ( x 2 since 7AM today.) Genitourinary: Genitourinary: Reports no additional female genitourinary complaints Exam Const: General: comfortable, no acute distress, lethargic, poor hygiene, tired appearing and other (eyes closed even with few verbal responses)
--- NOTE | 2021-05-02 12:39 | PM.IMPN ---
Progress Note: A&P Assessment and Plan (1) Small bowel obstruction: Code(s): K56.609 - Unspecified intestinal obstruction, unspecified as to partial versus complete obstruction Status: Acute Assessment and Plan: SUSPECT TO BE FUNCTIONAL HAS BEEN HAVING BOWEL MOVEMENTS ABDOMEN IS SOFT ON PALPATION STILL HAVING CRAMPS WILL TRY SUBOXONE 1 TAB SUBLINGUAL Q 6 P.R.N. (2) Esophagitis: Code(s): K20.90 - Esophagitis, unspecified without bleeding Status: Acute Assessment and Plan: Noted on CT scan. Protonix. (3) Hypokalemia: Code(s): E87.6 - Hypokalemia Status: Acute Assessment and Plan: CONTINUE TO REPLACE NEEDED (4) Dehydration: Code(s): E86.0 - Dehydration Status: Acute Assessment and Plan: IS STILL HAVING NAUSEA AND VOMITING STOMACH IS DILATED GAS BUBBLE NOTED ON X-RAY REGLAN P.R.N. (5) Polysubstance abuse: Code(s): F19.10 - Other psychoactive substance abuse, uncomplicated Status: Acute Assessment and Plan: Urine drug screen is positive for opiates, benzodiazepines, and methamphetamines. Monitor for withdrawal symptoms. (6) Psychiatric illness: Code(s): F99 - Mental disorder, not otherwise specified Status: Acute Assessment and Plan: Including depression, bipolar disorder, and anxiety. Demonstrates behavioral disturbances today. Subjective Date/time seen: 05/02/21 12:39 I'M IN PAIN Review of Systems Review of Systems: ROS unobtainable: Yes other (Limited due to refusal of answering questions, uncooperative.) Gastrointestinal: Gastrointestinal: Reports as per HPI, Reports abdominal pain, Reports nausea and Reports vomiting Exam Narrative: Exam Narrative: laying in bed Const: General: well developed, alert, awake, ill appearing chronically, lethargic, tired appearing and other (eyes closed even with few verbal responses); No no acute distress Nutritional Appearance: average body habitus and thin Orientation/consciousness: patient oriented x3, lethargic and Other orientation findings (BENNY due to refusal of answering questions) Limitations: behavioral limitations HENMT: Head: normal to inspection, normocephalic and atraumatic Ears: hearing grossly normal bilaterally Face and sinus: normal facial exam Eyes: General: appearance normal, both eyes and all related structures Sclera: sclerae normal Pupils: Equal, round and reactive pupils present EOM: EOMs intact bilaterally Neck: Neck: normal visual inspection, full ROM, no lymphadenopathy and no JVD Thyroid: thyroid normal Lymphatic: no lymphadenopathy noted Resp: Effort & Inspection: normal respiratory effort, able to speak in complete sentences and no respiratory distress Auscultation: clear to auscultation bilaterally Cardio: Jugular venous distension: no JVD Rate: regular rate Rhythm: regular rhythm Heart sounds: S1 normal heart sound present and S2 normal heart sound present GI: Inspection: normal to inspection, distended, scar (small trochar scars) and no visible herniation Auscultation: Hypoactive bowel sounds present Rectal Exam: deferred Other: soft, mod dist, diffuse TTP, no peritoneal signs. Good bowel sounds on auscultation : General: Yes deferred Skin: General skin exam: normal color Rashes: no rashes Wounds: no wounds Neuro: General: patient oriented x3, moves all extremities and CN's II-XI intact bilaterally Cranial nerves: Yes CN's II-XII intact bilaterally and Yes Equal, round and reactive pupils present Cognition (Neuro): normal cognition Speech: normal speech Gait exam (Neuro): Normal gait present Motor exam (neuro): 5/5 motor strength present throughout Other: Patient cooperating today Extrem: General: normal to inspection, full ROM, no joint enlargement, no clubbing, cyanosis or edema and no pedal edema Psych: Appearance: disheveled Affect: Labile affect present
[2021-05-02 14:00] VITALS: BP 108/71; PULSE 74; RESP 18; TEMP 36.2; O2SAT 99
[2021-05-02] MEDS: ONDANSETRON HCL ODT 4 MG TABLET PO (16:35)
[2021-05-02 19:01] LABS: Anion Gap 6 mmol/L (8-16); Blood Urea Nitrogen 9 mg/dL (7-17); Calcium 7.6 mg/dL (8.4-10.2); Carbon Dioxide 19 mmol/L (22-30); Chloride 105 mmol/L (98-107); Estimated Glomerular Filt Rate > 60; Glucose 94 mg/dL (65-105); Potassium 3.7 mmol/L (3.4-5.0); Sodium 130 mmol/L (137-145)
[2021-05-02 21:48] VITALS: BP 128/87; PULSE 78; RESP 18; TEMP 36.9; O2SAT 97
[2021-05-03 05:50] VITALS: BP 100/70; PULSE 110; RESP 20; TEMP 37.2; O2SAT 94
[2021-05-03] MEDS: METOCLOPRAMIDE HCL 5 MG TABLET PO ×2 (05:59→13:00)
[2021-05-03] MEDS: PANTOPRAZOLE 40 MG TABLET PO (08:39)
--- NOTE | 2021-05-03 10:10 | PM.PNGS ---
Progress Note: A&P Assessment and Plan (1) Small bowel obstruction: Code(s): K56.609 - Unspecified intestinal obstruction, unspecified as to partial versus complete obstruction Status: Acute Assessment and Plan: SBS From 04/29 showed no contrast in the colon after 5 hours, repeat abd x-ray the following morning showed large colonic stool burden with contrast in colon and few dilated SB loops. Serial abd films improving. Now tolerating a regular diet with bowels moving, although still complaining of abdominal pain with an unclear etiology. Appears to have clinically resolved. Will sign off at this time. Please call us if there are any surgical needs in the future. (2) Polysubstance abuse: Code(s): F19.10 - Other psychoactive substance abuse, uncomplicated Status: Acute Assessment and Plan: Withdrawal precautions. Could be contributing to some of her abdominal pain. Management per Hospitalist. (3) Noncompliance: Code(s): Z91.19 - Patient's noncompliance with other medical treatment and regimen Status: Acute Assessment and Plan: No sitter present today. Patient still uncooperative and agitated, but I was able to ask a few questions and perform a limited exam. Additional Plan I have discussed the plan of care with Dr. Mendenhall. Subjective Subjective Date/Time Seen: 05/03/21 10:10 Patient reports: no new complaints, still having pain, flatus and bowel movement Interval history: Patient seen this morning and still complaining of generalized abd pain. Denies nausea or vomiting this morning. Denies having any emesis overnight. No other complaints at this time. She is specifically requesting one time doses of IV Dilaudid for her abdominal pain. Bowels moving yesterday, no BM yet today. Tolerated dinner tray well per patient. Has not yet ate breakfast. After asking a few questions, she again told me she is not going to talk right now or answer any other questions . Then while trying to examine her abdomen, she screamed and said do not touch me and refused any further exam. Review of Systems Review of Systems: ROS unobtainable: Yes other (limited due to patient being uncooperative and agitated) Exam Const: General: no acute distress Nutritional Appearance: thin Orientation/consciousness: Other orientation findings (sleeping comfortably when entering the room) GI: Inspection: non-distended GI Palp: Yes Soft to palpation, Yes Tenderness to palpation present (GI) (diffusely tender per patient), No Guarding due to palpation present (GI) and No Rebound tenderness present Auscultation: normal bowel sounds Other: No peritoneal signs Neuro: Other: Exam limited due to lack of cooperation Psych: Appearance: disheveled Speech and movement: Psychomotor agitation in speech present Affect: Irritable affect present Attitude: Belligerent attititude/behavior present, Avoids eye contact (attititude/behavior) and Refuses to answer (attititude/behavior) Insight: Poor insight present (Psych) Judgement: Poor judgement present (Psych) Objective Data Vital Signs Vital Signs: Vital Signs - 24 hr 05/02/21 14:00 05/02/21 21:48 05/03/21 05:50 Temperature 97.2 F L 98.4 F 99.0 F Pulse Rate 74 78 110 H Respiratory Rate 18 18 20 Blood Pressure 108/71 128/87 100/70 Pulse Oximetry 99 97 94 Intake/Output Intake/Output: Intake & Output 04/30/21 05/01/21 05/02/21 05/03/21 23:59 23:59 23:59 23:59 Intake Total 507 990 2702 500 Output Total 950 126 6647 Balance 40 -60 -120 500 Meds/Results Medications: Active Medications Generic Name Dose Route Start Last Admin Trade Name Dariuszq PRN Reason Stop Dose Admin Acetaminophen 1,000 mg 04/29/21 13:51 05/02/21 12:21 Acetaminophen 500 Mg Tablet PO 1,000 mg Q6H PRN Administration Pain Buprenorphine/Naloxone 1 each 05/02/21 12:59 05/03/21 05:59 Buprenorphine Hcl/Naloxone Hcl (*Crx) 4 Mg/1 Mg Sl Film SUBLINGUAL 1 each
[2021-05-03 14:00] VITALS: BP 128/76; PULSE 74; RESP 18; TEMP 36.5; O2SAT 96
--- NOTE | 2021-05-03 15:07 | PM.DS ---
DS: Admitting Diagnosis Admitting Diagnosis Admitting Diagnosis: (1) Small bowel obstruction: Code(s): K56.609 - Unspecified intestinal obstruction, unspecified as to partial versus complete obstruction Status: Acute Assessment and Plan: She has had several bowel obstructions over the last couple of months but is my understanding that she has left against medical advice from all facilities previously including [facility] in [place]. At this time she adamantly refuses NG insertion despite the possibility of worsening condition, aspiration, or even . Aspiration precautions initiated. Elevate head of bed. Zosyn started for possible enteritis. Dr. Mendenhall has been consulted and his input is appreciated. (2) Esophagitis: Code(s): K20.90 - Esophagitis, unspecified without bleeding Status: Acute Assessment and Plan: Noted on CT scan. Start Protonix. (3) Hypokalemia: Code(s): E87.6 - Hypokalemia Status: Acute Assessment and Plan: Treated at outside facility this morning however repeat level was still low thus will order another K rider. (4) Dehydration: Code(s): E86.0 - Dehydration Status: Acute Assessment and Plan: Continue IV fluid rehydration. (5) Polysubstance abuse: Code(s): F19.10 - Other psychoactive substance abuse, uncomplicated Status: Acute Assessment and Plan: Urine drug screen is positive for opiates, benzodiazepines, and methamphetamines. Monitor for withdrawal symptoms. (6) Psychiatric illness: Code(s): F99 - Mental disorder, not otherwise specified Status: Acute Assessment and Plan: Including depression, bipolar disorder, and anxiety. Demonstrates behavioral disturbances today. DS: Discharge Diagnosis Discharge Diagnosis (1) Small bowel obstruction: Code(s): K56.609 - Unspecified intestinal obstruction, unspecified as to partial versus complete obstruction Status: Acute Assessment and Plan: SUSPECT TO BE FUNCTIONAL HAS BEEN HAVING BOWEL MOVEMENTS ABDOMEN IS SOFT ON PALPATION STILL HAVING CRAMPS WILL TRY SUBOXONE 1 TAB SUBLINGUAL Q 6 P.R.N. PATIENT TOLERATED P.O. (2) Esophagitis: Code(s): K20.90 - Esophagitis, unspecified without bleeding Status: Acute Assessment and Plan: Noted on CT scan. Protonix. (3) Hypokalemia: Code(s): E87.6 - Hypokalemia Status: Acute Assessment and Plan: CONTINUE TO REPLACE NEEDED (4) Dehydration: Code(s): E86.0 - Dehydration Status: Acute Assessment and Plan: RESOLVED STOMACH IS DILATED GAS BUBBLE NOTED ON X-RAY REGLAN P.R.N. (5) Polysubstance abuse: Code(s): F19.10 - Other psychoactive substance abuse, uncomplicated Status: Acute Assessment and Plan: Urine drug screen is positive for opiates, benzodiazepines, and methamphetamines. Monitor for withdrawal symptoms. (6) Psychiatric illness: Code(s): F99 - Mental disorder, not otherwise specified Status: Acute Assessment and Plan: Including depression, bipolar disorder, and anxiety. Demonstrates behavioral disturbances today. DS: Summary Hospital Course Reason for hospitalization: NAUSEA VOMITING ABDOMINAL PAIN Hospital Course: This is a 40-year-old female who has been directly admitted to the medical floor [place] [facility] [place] given small-bowel obstruction. Her medical history is significant for polysubstance drug abuse including IV drug abuse, multiple sclerosis, deep venous thrombosis and pulmonary embolism, and bipolar disorder. On arrival today she is uncooperative, will not open her eyes, and yells for staff to get away from her and to leave her alone. She will provide answers here and there but I cannot get a complete history and as such a m
== END 2021-05-03 17:00 | disposition home or self-care (01) | DRG 247 ==
PROVIDERS: Surgery; Admitting Provider Internal Medicine; PCP Internal Medicine; Visit Provider Internal Medicine
DX: K56.609 Unspecified intestinal obstruction, unspecified as to partial versus complete obstruction (principal); K20.90 Esophagitis, unspecified without bleeding; E87.6 Hypokalemia; E86.0 Dehydration; F41.8 Other specified anxiety disorders; G35 Multiple sclerosis; Z86.711 Personal history of pulmonary embolism; F31.9 Bipolar disorder, unspecified; Z91.19 Patient's noncompliance with other medical treatment and regimen; F19.10 Other psychoactive substance abuse, uncomplicated; F11.10 Opioid abuse, uncomplicated; F15.10 Other stimulant abuse, uncomplicated; Z86.718 Personal history of other venous thrombosis and embolism
CPT/HCPCS: 36415; 74018; 74019; 74250; 80048; 80053; 83605; 83690; 83735; 84100; 85025; 85027; 96361; 96365; 96366; 96367; 96374; A9270; C9113; G0378; G0379; J0131; J0780; J1170; J2310; J2543; J3475; J3480; J7030

== ENCOUNTER 2021-06-01 07:54 | Emergency (ER) | payer OTHER, SELFPAY ==
--- NOTE | ~2021-06-01 | CT_ITS ---
EXAMINATION: CT diagnostic chest wo con DATE: 06/01/2021 11:03 INDICATION: Central line placement with abnormal TECHNIQUE: Computed tomography (CT) of the chest was performed without intravenous contrast. The dose -length product (DLP) was 157.08 mGy-cm. Automated exposure control and iterative reconstruction tech nique were employed. COMPARISON: Chest radiograph from today; CT, 04/17/2020 FINDINGS: The right-sided central line enters the common carotid artery and ends with its tip near th e aortic valve. There is dependent atelectasis of the lungs. No pleural effusion or pneumothorax is i dentified. No pathologically enlarged thoracic lymph nodes are identified. The heart size is normal. The gallbladder is surgically absent. There is mild thoracic spondylosis. IMPRESSION: 1. Intra-arterial placement of the right-sided central line with its tip ending near the aortic valve . This finding was discussed with Dr. John Chaudhari DO in the Emergency Department at 1115 hours o n 06/01/2021. Reviewed, dictated and finalized at location A. IMPRESSION: 1. Intra-arterial placement of the right-sided central line with its tip ending near the aortic valve. This finding was discussed with Dr. John Chaudhari DO in the Emergency Depa rtment at 1115 hours on 06/01/2021.
--- NOTE | ~2021-06-01 | XR_ITS ---
XR chest port-a-cath/central DATE: 06/01/2021 10:24 INDICATION: Central line placement TECHNIQUE: Portable AP chest on 06/01/2021 at 1037 hours COMPARISON: 04/03/2021 portable AP chest FINDINGS: Right internal jugular central venous catheter courses more medial than expected, the dista l tip of the catheter overlying the left inferolateral aspect of T8 vertebral body. Consider CT chest correlation if the catheter does not function properly. No pneumothorax or pneumomediastinum. The lungs are clear of infiltrate or consolidation. No pleural effusion or pulmonary vascular congest ion. Normal heart size. Surgical clips overlie the right upper quadrant, consistent with cholecystectomy IMPRESSION: Unusual course of right internal jugular central venous catheter; recommend clinical dior elation and CT chest if necessary Reviewed, dictated and finalized at Location A. Reviewed, dictated and finalized at location B. IMPRESSION: Unusual course of right internal jugular central venous catheter; r ecommend clinical correlation and CT chest if necessary
[2021-06-01 07:54] VITALS: BP 111/78; PULSE 102; RESP 16; TEMP 36.3; O2SAT 100
--- NOTE | 2021-06-01 08:00 | ED.GENADULT ---
HPI - General Adult General Chief complaint: Psychiatric Symptoms Stated complaint: ambulance Source: patient Mode of arrival: ambulatory Limitations: no limitations History of Present Illness HPI narrative: Manuela is a 40F with a PMH of esophagitis, polysubstance abuse, DVT, mood disorder, previous SBO, fibromyalgia, COPD, (MS is listed by no imaging or notes confirm this) was brought to the ED by EMS. It seems hard for her to give a reason as to why she called and she is very tangential. When asked why she said her potassium is low, she feels awful, and she is suicidal. However, she had told EMS that she has abdominal pain. When asked when this started she stated that is was some time in the last week when she relapsed and started using fentanyl again. Last BM was last night. No nausea or vomiting reported. No diarrhea reported. She states she is suicidal but denies any plan. When asked further questions says I just want help. . She also continuously asked to eat throughout the history. Related Data Home Medications Medication Instructions Recorded Confirmed gabapentin 1,200 mg PO TID 05/02/21 06/01/21 lorazepam [Ativan] 1 mg PO BID PRN 05/02/21 06/01/21 Allergies Allergy/AdvReac Type Severity Reaction Status Date / Time hydroxyzine Allergy Severe Anaphylactic Verified 04/03/21 11:51 Shock trazodone Allergy Intermediate hives, Verified 04/03/21 11:51 breathing, makes her mean! propoxyphene Allergy Mild N/V, hives Verified 04/03/21 11:51 buspirone Allergy Unknown Difficulty Verified 04/03/21 11:51 Breathing celecoxib Allergy Unknown hives, n/v Verified 04/03/21 11:51 erythromycin base Allergy Unknown Unknown Verified 04/03/21 11:51 haloperidol Allergy Unknown Unknown Verified 04/03/21 11:51 ibuprofen Allergy Unknown Rash Verified 04/03/21 11:51 ketorolac Allergy Unknown Rash Verified 04/03/21 11:51 latex Allergy Unknown Unknown Verified 04/03/21 11:51 levetiracetam Allergy Unknown rash Verified 04/03/21 11:51 (moderate) metaxalone Allergy Unknown break out, Verified 04/03/21 11:51 cannot breathe nalbuphine Allergy Unknown Rash Verified 04/03/21 11:51 naproxen Allergy Unknown Rash Verified 04/03/21 11:51 NSAIDS (Non-Steroidal Allergy Unknown Rash Verified 04/03/21 11:51 Anti-Inflamma risperidone Allergy Unknown Confusion Verified 04/03/21 11:51 (moderate) sulfamethizole Allergy Unknown yeast Verified 04/03/21 11:51 infection (mild) sumatriptan Allergy Unknown hives Verified 04/03/21 11:51 tramadol Allergy Unknown Unknown Verified 04/03/21 11:51 trimethoprim Allergy Unknown yeast Verified 04/03/21 11:51 infection (mild) erythrosine sodium Allergy Hives Verified 04/03/21 11:51 Sulfa (Sulfonamide Allergy Hives Verified 04/03/21 11:51 Antibiotics) diclofenac AdvReac Mild GI UPSET Verified 04/03/21 11:51 lisinopril AdvReac Mild COUGHING Verified 04/03/21 11:51 cyclobenzaprine AdvReac Unknown Dizziness Verified 04/03/21 11:51 divalproex sodium AdvReac Unknown Discomfort Verified 04/03/21 11:51 Review of Systems Constitutional: Constitutional: Denies chills, Reports fatigue and Denies fever(s) Eyes: Eyes: Reports no additional eye complaints ENT: Reports system reviewed and no additional complaints, except as documented Cardiovascular: Cardiovascular: Reports no additional cardiovascular complaints Respiratory: Respiratory: Reports no additional respiratory complaints Gastrointestinal: Gastrointestinal: Reports as per HPI Genitourinary: Genitourinary: Reports no additional female genitourinary complaints Musculoskeletal: Musculoskeletal: Reports no additional musculoskeletal complaints Integumentary/Breasts: Skin/Breast: Reports system reviewed and no additional complaints, except as docu Neurologic: Reports system reviewed and no additional complaints, except as documented Psychiatric: Psychiatric: Reports no additional psychiatric complai
--- NOTE | 2021-06-01 08:15 | ECG_ITS ---
Measurements Intervals [place] Rate: 79 P: 40 NM: 139 QRS: 54 QRSD: 89 T: -13 QT: 313 QTc: 360 Interpretive Statements SINUS RHYTHM NONSPECIFIC ST & T-WAVE ABNORMALITY- ANTEROLAT/INF LEADS BASELINE ARTIFACT- I, II, III, AVR, AVL, AVF, V2 BORDERLINE ECG Electronically Signed On 06-01-2021 8:46:06 CDT by Hilton Madden D.O.
[2021-06-01 08:25] LABS: Basophils Absolute Auto 0.05 K/mm3 (0.00-0.10); Basophils Percent Auto 0.5 % (0.0-1.0); Eosinophils Absolute Auto 0.03 K/mm3 (0.02-0.50); Eosinophils Percent Auto 0.3 % (1.0-6.0); Hematocrit 29.3 % (35.0-49.0); Immature Granulocyte Absolute 0.09 K/mm3 (0.00-0.00); Lymphocytes Absolute Auto 3.16 K/mm3 (1.10-4.50); Lymphocytes Percent Auto 34.7 % (18.0-42.0); Mean Corpuscular HGB Conc 34.1 g/dL (32.0-36.0); Mean Corpuscular Hemoglobin 26.5 pg (27.0-31.0); Mean Corpuscular Volume 77.5 fL (78.0-102.0); Mean Platelet Volume 8.2 fl (9.2-11.8); Monocytes Absolute Auto 0.65 K/mm3 (0.10-0.90); Monocytes Percent Auto 7.1 % (2.0-11.0); Neutrophils Absolute Auto 5.1 K/mm3 (1.7-7.2); Neutrophils Percent Auto 56.4 % (50.0-70.0); Platelet Count Result 280 K/mm3 (150-420); Red Blood Count 3.78 M/mm3 (4.20-5.40); White Blood Count 9.1 K/mm3 (4.8-10.8)
[2021-06-01 08:38] LABS: INR 1.1; Prothrombin Time 11.4 Seconds (9.50-12.10)
[2021-06-01 08:45] LABS: Acetaminophen 2 ug/mL (10-30); Alanine Aminotransferase 34 U/L (14-59); Albumin Level 1.1 g/dL (3.4-5.0); Alkaline Phosphatase 127 U/L (46-116); Anion Gap 10 mmol/L (8-16); Aspartate Amino Transferase 17 U/L (15-37); Bilirubin,Total 0.3 mg/dL (0.00-1.00); Blood Urea Nitrogen 15 mg/dL (7-18); Calcium 7.4 mg/dL (8.5-10.1); Carbon Dioxide 27 mmol/L (21-32); Chloride 96 mmol/L (98-108); Estimated Glomerular Filt Rate > 60; Glucose 96 mg/dL (70-99); Lipase 14 U/L (73-393); Magnesium 1.8 mg/dL (1.8-2.4); Osmolality Calculated 276 mOsm/kg (285-295); Salicylate 0.8 mg/dL (2.8-20.0); Sodium 133 mmol/L (136-145); Total Protein 5.2 g/dL (6.4-8.2)
[2021-06-01 08:46] LABS: Ethanol < 3 mg/dL (0-6); Potassium 2.3 mmol/L (3.5-5.1)
[2021-06-01 08:55] LABS: Lactic Acid Reflex 0.8 mmol/L (0.4-2.0)
[2021-06-01] MEDS: MORPHINE SULFATE (*CRX) 4 MG/ML INJ (09:44)
[2021-06-01] MEDS: HYDROmorphone HCL INJ (*CRX) 2 MG/ML VIAL 0.5 MG IV PUSH (10:10)
[2021-06-01] MEDS: PROCHLORPERAZINE EDISYLATE 10 MG/2 ML VIAL IV PUSH (10:10)
[2021-06-01 12:00] VITALS: BP 91/69; PULSE 78; RESP 18; O2SAT 100
--- NOTE | 2021-06-01 12:31 | PC.NURSE ---
1155 ARCH ARRIVAL. LEFT EJ IV ACCESS INITIATED. POTASSIUM GTT AND HEPARIN GTT STARTED.
--- NOTE | 2021-06-01 12:42 | PC.NURSE ---
VITAL SIGNS PRINTED AND PLACED IN PAPER CHART
--- NOTE | 2021-06-01 12:43 | PC.NURSE ---
1126 JONY REPORTED TO VASCULAR SURGEON AT [facility]. PT TO BE TRANSFERRED BY ARCH TO [facility] ED. ARCH CALLED AT 1134 FOR 15 MINUTE ETA. TELEPHONE REPORT PROVIDED TO MELISA JONES RN AT [facility]. 1155 ARCH ARRIVAL. 1235 ARCH DEPARTURE
== END 2021-06-01 12:38 | disposition short-term general hospital (02) ==
PROVIDERS: Emergency Provider Family Medicine
DX: R10.9 Unspecified abdominal pain (principal); E87.6 Hypokalemia; T82.9XXA Unspecified complication of cardiac and vascular prosthetic device, implant and graft, initial encounter; R45.851 Suicidal ideations
CPT/HCPCS: 36415; 36556; 71250; 80053; 80307; 83605; 83690; 83735; 85025; 85610; 86140; 93005; 96374; 96375; 99285; C1751; J0780; J1170; J1644; J2270; J3480; J7030; J7120

== ENCOUNTER 2021-06-08 11:10 | Observation (INO) | payer OTHER, SELFPAY ==
--- NOTE | ~2021-06-08 | MR_ITS ---
EXAMINATION: MR cervical spine wo con DATE: 06/10/2021 12:41 INDICATION: Lower extremity weakness. TECHNIQUE: Magnetic resonance imaging (MRI) of the cervical spine was performed without intravenous c ontrast. Sequences included sagittal T2-weighted FSE, sagittal T2-weighted FS FSE, sagittal T1-weight ed FSE, axial MERGE, and axial T2-weighted FSE. COMPARISON: CT cervical spine 06/08/2021 FINDINGS: There is 7 degrees levocurvature of cervicothoracic spine. Vertebral body heights are karly l. There is mildly decreased disc height at C5-C6 and C6-C7. The spinal cord signal intensity is norm al, but motion artifact decreases sensitivity. The following disc levels are specifically discussed: C2-C3: The disc does not extend beyond the endplate margin. There is no uncovertebral joint osteoarth ritis. There is moderate bilateral facet joint osteoarthritis. There is no neural foraminal stenosis. There is no central canal stenosis. C3-C4: The disc does not extend beyond the endplate margin. There is mild right uncovertebral joint o steoarthritis. There is no facet joint osteoarthritis. There is mild right neural foraminal stenosis. There is no central canal stenosis. C4-C5: The disc does not extend beyond the endplate margin. There is mild bilateral uncovertebral clayton nt osteoarthritis. There is no facet joint osteoarthritis. There is no neural foraminal stenosis. The re is no central canal stenosis. C5-C6: There is a right central extrusion. There is severe right and moderate left uncovertebral join t osteoarthritis. There is no facet joint osteoarthritis. There is mild right neural foraminal stenos is. There is mild central canal stenosis. C6-C7: There is a central protrusion. There is mild bilateral uncovertebral joint osteoarthritis. The re is mild right facet joint osteoarthritis. There is no neural foraminal stenosis. There is mild casimiro tral canal stenosis. C7-T1: The disc does not extend beyond the endplate margin. There is no uncovertebral joint osteoarth ritis. There is mild bilateral facet joint osteoarthritis. There is no neural foraminal stenosis. The re is no central canal stenosis. IMPRESSION: 1. Mild cervical spondylosis. Reviewed, dictated and finalized at location A.
--- NOTE | ~2021-06-08 | CT_ITS ---
EXAMINATION: CTA BRAIN/CAROTID DATE: 06/08/2021 19:21 INDICATION: Lower limb weakness TECHNIQUE: Computed tomographic angiography (CTA) of the head and neck was performed with 100 mL Omni paque-350 intravenous contrast. Multiplanar reconstructions and maximum intensity projection 3D-recon structions of the carotid arteries and of the intracranial arteries were created by the technologist on a separate workstation. Automated exposure control and iterative reconstruction technique were emp loyed.The dose-length product was 949.29 mGy-cm. COMPARISON: Head CT dated 06/08/2021 FINDINGS: Carotid arteries: There is 0% stenosis of the right carotid bulb relative to normal distal artery lumen diameter (NASCE T criteria). There is 0% stenosis of the left carotid bulb relative to normal distal artery lumen sal meter. The more distal cervical internal carotid arteries are tortuous. Aortic arch is normal in kenny osito with no dissection. No evident atherosclerotic plaque at the aortic arch or great vessels. Cervic al vertebral arteries are codominant also without appreciable plaque. There are couple new surgical c lips along the right common carotid artery with small amount of edema in the surrounding soft tissues likely related to surgery for the previously seen is placed attempted right internal jugular central venous catheter which entered the common carotid artery at this location. Cervical soft tissues are otherwise unremarkable. 8 mm groundglass nodule at the right apex which is new since 06/01/2021 consist ent with an infectious/inflammatory etiology. Intracranial arteries There is no hemodynamically significant stenosis in the vertebral, basilar and internal carotid arter ies. Vertebral arteries are codominant. There are no aneurysms identified. Both A1 and P1 segments a re patent. Cerebral arterial arborization appears symmetric. IMPRESSION: 1. 0% stenosis of the left and right carotid bulbs relative to normal distal artery lumen diameter (N ASCET criteria). 2. Normal cerebral CT angiogram. 3. 8 mm groundglass nodule at the right apex which is new since 06/01/2021 consistent with an infectiou s/inflammatory etiology noncontrast chest CT. Reviewed, dictated and finalized at location A. IMPRESSION: 1. 0% stenosis of the left and right carotid bulbs relative to normal distal ar dwight lumen diameter (NASCET criteria). 2. Normal cerebral CT angiogram. 3. 8 mm groundglass nodule at the right apex which is new since 06/01/2021 consis tent with an infectious/inflammatory etiology noncontrast chest CT.
--- NOTE | ~2021-06-08 | US_ITS ---
EXAMINATION: US carotid duplex BI DATE: 06/10/2021 13:38 INDICATION: Lower extremity weakness. TECHNIQUE: Grayscale, color Doppler, and pulsed Doppler images of the cervical carotid arteries were obtained. The degree of vessel stenosis is placed in one of the following categories: normal, <50%, 5 0-69%, >=70% but less than near-occlusion, near-occlusion, or total occlusion. Note that percent sten osis relative to normal distal artery lumen diameter is indirectly measured from velocity measurement s as described by Elvin, et al. Radiology 2003; 229:340-346. COMPARISON: None. FINDINGS: RIGHT: The right common carotid artery (CCA) peak systolic velocity (PSV) is 79 cm/s. The right internal car otid artery (ICA) PSV is 78 cm/s. The right ICA end-diastolic velocity (EDV) is 33 cm/s. The right IC A/CCA PSV ratio is 1.0. Grayscale and color Doppler images yield an estimate of <50% diameter reducti on from plaque in the ICA. There is antegrade flow in the right vertebral artery. LEFT: The left CCA PSV is 102 cm/s. The left ICA PSV is 78 cm/s. The left ICA EDV is 31 cm/s. The left ICA/ CCA PSV ratio is 0.8. Grayscale and color Doppler images yield an estimate of <50% diameter reduction from plaque in the ICA. There is antegrade flow in the left vertebral artery. IMPRESSION: 1. <50% stenosis in the right internal carotid artery. 2. <50% stenosis in the left internal carotid artery. Reviewed, dictated and finalized at location A.
--- NOTE | ~2021-06-08 | US_ITS ---
EXAMINATION: US venous doppler LE BI DATE: Bilateral lower limb edema INDICATION: Lower limb edema TECHNIQUE: Camilo scale images without and with compression and Doppler images of the bilateral lower e xtremity veins were obtained. COMPARISON: 02/03/2021 FINDINGS: The right common femoral vein, profunda femoral vein, femoral vein, popliteal vein, peroneal trunk, p osterior tibial veins, and greater saphenous vein are patent. The left common femoral vein, profunda femoral vein, femoral vein, popliteal vein, peroneal trunk, po sterior tibial veins, and greater saphenous vein are patent. IMPRESSION: 1. Patent bilateral lower extremity veins. No evidence of deep venous thrombosis. Reviewed, dictated and finalized at location B. IMPRESSION: 1. Patent bilateral lower extremity veins. No evidence of deep venous thrombosi s.
--- NOTE | ~2021-06-08 | MR_ITS ---
EXAMINATION: MR lumbar spine wo con DATE: 06/10/2021 12:43 INDICATION: Lower extremity weakness. TECHNIQUE: Magnetic resonance imaging (MRI) of the lumbar spine was performed without intravenous con trast. Sequences included sagittal T2-weighted FSE, sagittal T2-weighted FS FSE, sagittal T1-weighted FSE, and axial T2-weighted FSE. COMPARISON: CT lumbar spine 06/08/2021 FINDINGS: There is 11 degrees levoscoliosis of lumbar spine. Vertebral body heights are normal. There is mildly decreased disc height at L2-L3. The distal spinal cord signal intensity is normal. The con us medullaris is at T12. The following disc levels are specifically discussed: L1-L2: The disc does not extend beyond the endplate margin. There is mild bilateral facet joint osteo arthritis. There is no neural foraminal stenosis. There is no central canal stenosis. L2-L3: The disc does not extend beyond the endplate margin. There is mild bilateral facet joint osteo arthritis. There is no neural foraminal stenosis. There is no central canal stenosis. L3-L4: The disc does not extend beyond the endplate margin. There is moderate right and mild left fac et joint osteoarthritis. There is no neural foraminal stenosis. There is no central canal stenosis. L4-L5: There is a left foraminal protrusion. There is moderate bilateral facet joint osteoarthritis. There is mild left neural foraminal stenosis. There is no central canal stenosis. L5-S1: The disc does not extend beyond the endplate margin. There is severe right and moderate left f acet joint osteoarthritis. There is no neural foraminal stenosis. There is no central canal stenosis. IMPRESSION: 1. Mild lumbar spondylosis. 2. Lumbar levoscoliosis. Reviewed, dictated and finalized at location A.
--- NOTE | ~2021-06-08 | MR_ITS ---
EXAMINATION: MR brain/brain stem wo con DATE: 06/10/2021 12:40 INDICATION: Lower extremity weakness. TECHNIQUE: Magnetic resonance imaging (MRI) of the brain and brainstem was performed without intraven ous contrast. Sequences included sagittal and axial T1-weighted FSE, axial diffusion-weighted FS EPI, axial T2*-weighted GRE, axial T2-weighted FLAIR Propeller, and axial T2-weighted Propeller. Apparent diffusion coefficient (ADC) maps were created. COMPARISON: Brain MRI 05/19/2015, head CT 06/08/2021 FINDINGS: There is no intracranial hemorrhage, acute infarction, or abnormal intracranial mass lesion . The ventricles are normal in size. The orbits are normal. The paranasal sinuses are clear. The mast oid air cells are normal. IMPRESSION: 1. Normal brain. Reviewed, dictated and finalized at location A. IMPRESSION: 1. Normal brain.
--- NOTE | ~2021-06-08 | CT_ITS ---
EXAMINATION: CT thoracic lumbar w con, CT cervical spine w con DATE: 06/08/2021 21:52 INDICATION: Spastic leg weakness. TECHNIQUE: 1. Computed tomography (CT) of the cervical spine was performed with 100 mL Omnipaque-350 intravenous contrast. Sagittal and coronal reconstructions were performed. Automated exposure control and iterat jason reconstruction technique were employed. 2. CT of the thoracic and lumbar spine was performed with the same 100 mL Omnipaque 350 intravenous c ontrast bolus. Additional sagittal and coronal reconstructions were performed. Automated exposure con trol and iterative reconstruction technique were employed. The dose-length product for the combined procedures was 358.40 mGy-cm. COMPARISON: None FINDINGS: Cervical spine: Nonfocal mild reversal of the normal cervical lordosis. No spondylolisthesis or facet subluxation. Ve rtebral body heights are normal. No fracture. Mild disc height loss at C5-C6 with mild left and moder ate right uncovertebral osteoarthritis. Small right-sided predominant disc osteophyte complex resulti ng in minimal central canal stenosis at this level. Minimal to mild bilateral multilevel cervical fac et osteoarthritis. Mild right neural foraminal stenosis at C5-C6. No abnormally enhancing lesions or epidural abscess within the cervical central canal. Couple surgical clips anterior to the cephalad as pect of the right common carotid artery with some edema in the surrounding soft tissues likely relate d to recent vascular repair post removal of an anteriorly placed attempted central venous catheter. C ervical soft tissues are otherwise unremarkable. Thoracic spine: Mild thoracic dextroscoliosis. Sagittal alignment is normal. Chronic mild anterior wedging at T5. Oth erwise normal vertebral body heights. Small Schmorl's nodes along multiple endplates in the mid to lo wer thoracic spine. Multilevel mild disc height loss throughout the thoracic spine. No central canal or neural foraminal stenosis. No abnormally enhancing lesions or epidural abscess along the thoracic central canal. Approximately 9 mm nodular groundglass opacity at the right apex which is new since the earlier CT da robert 06/01/2021 which is most likely infectious/inflammatory in etiology. Small pneumatocele at the post erior sulcus of the right lower lobe. Remainder of the visualized lungs are clear. Although not perfo rmed as a dedicated pulmonary embolism protocol there appears to be a hypodense pulmonary embolism wi thin the posterior basilar segmental pulmonary artery of the right lower lobe. Heart size is normal. No pericardial effusion. There is some wall thickening along the esophagus which could be seen with e sophagitis either due to reflux or infection. No pathologically enlarged thoracic lymphadenopathy. Lumbar spine: Mild lumbar levocurvature. Sagittal alignment is normal. Vertebral body heights are normal. No fractu re. Disc heights are normal. Moderate to severe facet osteoarthritis on the left at L4-L5 and bilater ally at L5-S1. Mild facet osteoarthritis throughout the remainder of the lumbar spine. Mild disc bulg e at L4-L5 resulting in minimal central canal stenosis. Mild neural foraminal stenosis on the left at L4-L5. No abnormally enhancing lesions or epidural abscess along the lumbar central canal. There is prominent edematous wall thickening throughout the colon with suggestion of additional wall thickening along portions of the small bowel consistent with an enterocolitis. The mesenteric vessels appear well opacified with contrast and there is uniform mucosal enhancement throughout the affected bowel argue against ischemia. Small wedge-shaped regions of decreased parenchymal enhancement at the lower pole of the right kidney which could represent either pyelonephritis or infarcts. The degree o f decreased enhancement is relatively significant and there is no significant surroundi
--- NOTE | ~2021-06-08 | XR_ITS ---
EXAMINATION: XR chest 1V portable DATE: 06/08/2021 20:18 INDICATION: Syncope and weakness TECHNIQUE: frontal view of the chest was obtained. COMPARISON: Chest radiograph dated 06/01/2021 FINDINGS: The lungs remain clear with no focal airspace opacities, pulmonary edema, pleural effusion or pneumot horax. The cardiomediastinal silhouette is normal. A couple surgical clips at the right neck. IMPRESSION: 1. No acute cardiopulmonary disease. Reviewed, dictated and finalized at location A.
--- NOTE | ~2021-06-08 | MR_ITS ---
EXAMINATION: MR thoracic spine wo con DATE: 06/10/2021 12:42 INDICATION: Lower extremity weakness. TECHNIQUE: Magnetic resonance imaging (MRI) of the thoracic spine was performed without intravenous c ontrast. Sagittal localizer T1-weighted FSE of the cervical spine was obtained. Thoracic spine sequen thania included sagittal T2-weighted FSE, sagittal T1-weighted FSE, sagittal T2-weighted FS FSE, and axi al T2-weighted FSE. COMPARISON: CT thoracic spine 06/08/2021 FINDINGS: Bone alignment is normal. There is mild chronic anterior wedging of T5 vertebral body. Ther e are Schmorl's nodes from T6-T7 through T11-T12. The intervertebral disc heights are normal. The dis cs do not extend beyond the endplate margins. There is mild facet joint osteoarthritis at a few level s. No neural foraminal stenosis or central canal stenosis. The spinal cord signal intensity is normal . IMPRESSION: 1. No etiology for the patient's symptoms. Reviewed, dictated and finalized at location A.
--- NOTE | ~2021-06-08 | CT_ITS ---
EXAMINATION: CT brain wo con DATE: 06/08/2021 15:52 INDICATION: Bilateral leg weakness. TECHNIQUE: Computed tomography (CT) of the head was performed without intravenous contrast. The mA wa s adjusted according to patient size. Iterative reconstruction technique was employed. The dose-lengt h product was 529.67 mGy-cm. COMPARISON: Head CT 04/27/2021, 09/28/2018, brain MRI 05/19/2015 FINDINGS: There is a chronic subcortical hyperdensity in the left frontal operculum and insula, likel y dystrophic calcification. There is no intracranial hemorrhage, acute infarction, or abnormal intrac ranial mass lesion. The ventricles are normal in size. The orbits are normal. The paranasal sinuses a re clear. The mastoid air cells are normal. IMPRESSION: 1. No acute intracranial pathology. Reviewed, dictated and finalized at location A.
[2021-06-08 11:08] VITALS: BP 100/81; PULSE 88; RESP 16; TEMP 36.6; O2SAT 100
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
--- NOTE | 2021-06-08 11:17 | ECG_ITS ---
Measurements Intervals [place] Rate: 88 P: 54 NE: 121 QRS: 53 QRSD: 75 T: -32 QT: 338 QTc: 409 Interpretive Statements SINUS RHYTHM NONSPECIFIC T-WAVE ABNORMALITY- ANTEROLAT/INF LEADS BASELINE ARTIFACT- I, II, V3 ABNORMAL ECG Electronically Signed On 06-08-2021 11:20:02 CDT by Hilton Madden D.O.
--- NOTE | 2021-06-08 11:34 | PC.NURSE ---
attempted x 2 for IV access. Juan RN to try with US.
[2021-06-08] MEDS: SODIUM CHLORIDE 0.9% IV 500 ML 999 ML IV CONT (12:44)
[2021-06-08 12:46] LABS: Basophils Percent Auto 0.8 % (0.2-1.2); Eosinophils Absolute Auto 0.1 K/mm3 (0-0.3); Eosinophils Percent Auto 1.7 % (0-4.4); Hemoglobin 8.4 g/dL (12.0-15.0); Immature Granulocyte Absolute 0.05 K/mm3 (0.00-0.031); Lymphocytes Absolute Auto 2.47 K/mm3 (0.9-3.2); Mean Corpuscular HGB Conc 32.3 g/dl (32-36); Mean Corpuscular Volume 83.6 fl (80-100); Monocytes Absolute Auto 0.5 K/mm3 (0.1-0.6); Monocytes Percent Auto 9.9 % (2.6-8.5); Neutrophils Absolute Auto 2.1 K/mm3 (1.3-6.7); Neutrophils Percent Auto 39.6 % (45.5-73.1); Platelet Count Result 450 k/mm3 (150-375); Red Blood Count 3.11 M/mm3 (4.2-5.4); Red Cell Distribution Width 19.4 % (11.5-14.5); White Blood Count 5.3 K/mm3 (4.5-10.0)
[2021-06-08 13:13] LABS: Anion Gap 2 mmol/L (8-16); Blood Urea Nitrogen 11 mg/dL (7-17); Calcium 7.2 mg/dL (8.4-10.2); Carbon Dioxide 20 mmol/L (22-30); Chloride 107 mmol/L (98-107); Estimated Glomerular Filt Rate > 60; Glucose 76 mg/dL (65-110); Potassium 3.7 mmol/L (3.4-5.0); Sodium 129 mmol/L (137-145)
[2021-06-08 13:22] VITALS: BP 105/81; PULSE 81; RESP 16; O2SAT 100
[2021-06-08 13:36] LABS: Anisocytosis 1+ (NORMAL); Hypochromasia 1+ (NORMAL); Monocytes Absolute Manual 0.42 K/mm3 (0.1-0.90); Monocytes Percent Manual 8 % (3-9); Neutrophils Percent Manual 56 % (46-73); Platelet Estimate Adequate (Adequate); Total Cells Counted 100
[2021-06-08 14:55] VITALS: BP 103/80; BP 97/79; PULSE 82; PULSE 83
--- NOTE | 2021-06-08 15:14 | PC.NURSE ---
Attempted to ambulate patient without success. Patient needed 2 assist. Patient cannot tell RN last time she was able to ambulate by self.
--- NOTE | 2021-06-08 19:06 | PC.NURSE ---
report to dayo aguirre
[2021-06-08] MEDS: LORazepam (*CRX) 1 MG TABLET PO (20:43)
[2021-06-08 20:45] LABS: INR 1.2; Prothrombin Time 14.9 Seconds (11.1-14.7)
[2021-06-08 20:46] LABS: Alanine Aminotransferase 17 U/L (4-35); Albumin Level 1.6 g/dL (3.5-5.1); Alkaline Phosphatase 94 U/L (38-126); Aspartate Amino Transferase 19 U/L (14-36); Bilirubin,Total 0.2 mg/dL (0.2-1.3); Magnesium 1.8 mg/dL (1.6-2.3); Partial Thromboplastin Time 26.7 SECONDS (22.3-36.8)
[2021-06-08] MEDS: SODIUM CHLORIDE 0.9% IV 1,000 ML 999 ML IV CONT (20:46)
--- NOTE | 2021-06-08 23:10 | PC.NURSE ---
Addendum entered by Cheli Pal 06/08/21 23:13: NOTE: All [facility] Hospitals are currently at capacity. Original Note: Spoke to Jacqueline at [facility] to find out patient status. This patient has NOT yet been accepted, she is in a queue for a doctor to doctor report for acceptance to any [facility].
[2021-06-08 23:48] VITALS: BP 109/84; PULSE 80; O2SAT 95
[2021-06-09] VITALS (13 sets, daily range): BP systolic 94–110; BP diastolic 58–80; PULSE 72–90; RESP 14–20; TEMP 36.4–36.8; O2SAT 97–100; BMI 20.6
[2021-06-09 00:24] LABS: CRP < 0.5 mg/dL (<1.0)
[2021-06-09 00:33] LABS: Erythrocyte Sedimentation Rate 38 mm/hr (0-20)
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
--- NOTE | 2021-06-09 00:41 | PC.NURSE ---
Called [facility], spoke with Ai and informed her that this patient is being admitted to our IMU, Room 213 but we would still like to keep her inn queue for doctor to doctor for acceptance to an [facility] facility.
--- NOTE | 2021-06-09 01:56 | ADMGEN ---
This patient, Manuela Yee, was admitted to IMU Room 213-01 at 0110 . Patient/family oriented to hospital policies and general routines including ID bracelet, bed and alarms, visiting hours, pain management, procedures, bathroom and other care routines, personal items, smoking policy, room service/diet, and visiting hours. Information on how to activate the Rapid Response Team has been discussed. Patient/Family are encouraged to report perceived risks to care and to ask questions if they do not understand what they are told or what they should do.
[2021-06-09] MEDS: ENOXAPARIN 40 MG/0.4 ML SYRINGE SUB-Q (09:21)
[2021-06-09] MEDS: GABAPENTIN 400 MG CAPSULE 1200 MG PO ×3 (09:21→17:43)
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
--- NOTE | 2021-06-09 15:00 | PM.IMPN ---
Progress Note: A&P Assessment and Plan (1) Syncope: Code(s): R55 - Syncope and collapse Status: Acute Assessment and Plan: Per the ED note. patient reported that she has felt, weak, dizzy, and unwell for the past few days and she awoke on the floor on the day of admission. She did not remember how she got there. No further information could be obtained. She had brain CT that showed no acute intracranial abnormalities. CTA head/neck also showing no acute findings with 0% stenosis of the left and right carotid bulbs and overall normal cerebral CT angiogram. Echo ordered but patient refused. Monitor on tele (2) Lower extremity weakness: Code(s): R29.898 - Other symptoms and signs involving the musculoskeletal system Status: Acute Assessment and Plan: Patient presented with generalized weakness but more lower extremity weakness. CT of C/T/L spine showing mild spondylosis throughout the cervical, thoracic and lumbar spine. No acute osseous abnormality, abnormally enhancing lesions or epidural abscess throughout the central canal. No obvious etiology. She has MS so consider flare. Neurology consulted and MRIs ordered. Continue to monitor. Start PT/OT. (3) Enterocolitis: Code(s): K52.9 - Noninfective gastroenteritis and colitis, unspecified Status: Acute Assessment and Plan: CT of the spine showing extensive edematous wall thickening of the colon and additional loops of small bowel at the visualized abdomen and pelvis consistent with enterocolitis most likely either infectious or inflammatory in etiology. Relatively benign abd exam. She has had a hx of partial SBO and enteroclitis possibly IBS. Stool O&P negative in March 2021. Zosyn started here. Also on Vanco. Will need a dedicated CT A/P. Don't see any colonoscopy or EGD performed here. Check IBD panel. (4) Pulmonary infarction: Code(s): I26.99 - Other pulmonary embolism without acute cor pulmonale Status: Acute Assessment and Plan: CT of spine also showing a suggestion of pulmonary infarct within the pulmonary arteries supplying the posterior basilar segment of the right lower lobe where there is a small cavitary lesion at the site of prior groundglass opacity on the CT from one week prior suggesting evolution of a region of pulmonary infarct. She is not on anti-coagulation. She has a hx of DVT/PE. She is not tachycardic or hypoxic. Dopplers of the LE ordered. Will start Lovenox for anticoagulation given this evolution of pulmonary infarct. Check CTA chest. (5) Ground glass opacity present on imaging of lung: Code(s): R91.8 - Other nonspecific abnormal finding of lung field Status: Acute Assessment and Plan: CXR clear on admission. CT 8 mm groundglass nodule at the right apex which is new since 06/01/2021 consistent with an infectious/inflammatory etiology. Consider septic emboli. Currentlyon Zosyn and Vanco. Anticoagulation started. Check CTA as mentioned above (6) Renal infarction: Code(s): N28.0 - Ischemia and infarction of kidney Status: Acute Assessment and Plan: CT scan also showing small regions of significantly decreased parenchymal enhancement at the lower pole of the right kidney suspicious for renal infarcts with differential including pyelonephritis. Consider septic emboli. Not sure if she is having urinary symptoms. Will check UA and Cx. She is on abx. CT A/P to add information about this (7) Polysubstance abuse: Code(s): F19.10 - Other psychoactive substance abuse, uncomplicated Status: Acute Assessment and Plan: Patient has a history of IV drug abuse. Consider septic emboli causing these imaging findings. No paraspinal abscess by CT but MRI ordered now. Could also cause bowel ischemia form emboli. Echocardiogram ordered. BCx pending. Continue vancomycin and Zosyn empirically. Unable to educate the patient at this time about the benefits of
[2021-06-09] MEDS: PANTOPRAZOLE SODIUM IV 40 MG VIAL IV PUSH (17:43)
[2021-06-09] MEDS: LORazepam (*CRX) 1 MG TABLET PO (19:00)
[2021-06-09] MEDS: ENOXAPARIN 60 MG/0.6 ML SYRINGE 45 MG SUB-Q (19:59)
[2021-06-09 20:10] LABS: SARS-CoV-2 RNA PCR Negative
[2021-06-10] VITALS (12 sets, daily range): BP systolic 103–108; BP diastolic 73–82; PULSE 63–102; RESP 16–20; TEMP 36.2–36.8; O2SAT 100
[2021-06-10] MEDS: ACETAMINOPHEN 325 MG TABLET 650 MG PO (02:58)
[2021-06-10] MEDS: LORazepam (*CRX) 1 MG TABLET PO (06:48)
[2021-06-10 06:57] LABS: Basophils Percent Auto 0.5 % (0.2-1.2); Eosinophils Absolute Auto 0.1 K/mm3 (0-0.3); Eosinophils Percent Auto 1.9 % (0-4.4); Hematocrit 24.5 % (37.0-47.0); Hemoglobin 7.6 g/dL (12.0-15.0); Immature Granulocyte Absolute 0.09 K/mm3 (0.00-0.031); Immature Granulocyte Percent A 1.5 % (0-0.5); Lymphocytes Percent Auto 42.1 % (18.3-44.2); Mean Corpuscular Hemoglobin 26.3 pg (26-34); Mean Corpuscular Volume 84.8 fl (80-100); Monocytes Absolute Auto 0.5 K/mm3 (0.1-0.6); Monocytes Percent Auto 8.6 % (2.6-8.5); Neutrophils Absolute Auto 2.8 K/mm3 (1.3-6.7); Neutrophils Percent Auto 45.4 % (45.5-73.1); Platelet Count Result 390 k/mm3 (150-375); Red Blood Count 2.89 M/mm3 (4.2-5.4); Red Cell Distribution Width 19.7 % (11.5-14.5); White Blood Count 6.2 K/mm3 (4.5-10.0)
[2021-06-10 07:53] LABS: Alanine Aminotransferase 14 U/L (4-35); Albumin Level 1.5 g/dL (3.5-5.1); Alkaline Phosphatase 77 U/L (38-126); Anion Gap 4 mmol/L (8-16); Aspartate Amino Transferase 17 U/L (14-36); Bilirubin,Total < 0.1 mg/dL (0.2-1.3); Blood Urea Nitrogen 5 mg/dL (7-17); Calcium 6.8 mg/dL (8.4-10.2); Carbon Dioxide 18 mmol/L (22-30); Chloride 109 mmol/L (98-107); Estimated Glomerular Filt Rate > 60; Glucose 89 mg/dL (65-110); Magnesium 1.7 mg/dL (1.6-2.3); Phosphorus 3.5 mg/dL (2.5-4.5); Sodium 131 mmol/L (137-145)
[2021-06-10] MEDS: ENOXAPARIN 60 MG/0.6 ML SYRINGE 45 MG SUB-Q (08:10)
[2021-06-10] MEDS: GABAPENTIN 400 MG CAPSULE 1200 MG PO ×3 (08:10→16:42)
[2021-06-10] MEDS: PANTOPRAZOLE SODIUM IV 40 MG VIAL IV PUSH (08:12)
[2021-06-10 09:15] LABS: Beta HCG Quantitative < 2.39 mIU/ML
[2021-06-10] MEDS: POTASSIUM CHLORIDE 20 MEQ TABLET 40 MEQ PO (09:31)
[2021-06-10 09:33] LABS: SPREG INTERNAL CONTROL Positive; Serum Qual hCG Negative
--- NOTE | 2021-06-10 09:40 | WPDNEUROPN ---
Objective Data Vital Signs Vital Signs: Vital Signs - 24 hr 06/09/21 10:00 06/09/21 12:00 06/09/21 14:00 Temperature Pulse Rate 81 77 79 Respiratory Rate Blood Pressure Pulse Oximetry 06/09/21 16:00 06/09/21 18:00 06/09/21 20:00 Temperature 36.6 C 36.8 C Pulse Rate 78 84 86 Respiratory Rate 18 14 Blood Pressure 110/78 94/66 L Pulse Oximetry 100 100 06/09/21 22:00 06/09/21 23:40 06/10/21 00:00 Temperature 36.6 C Pulse Rate 90 90 87 Respiratory Rate 18 Blood Pressure 104/71 Pulse Oximetry 100 06/10/21 02:00 06/10/21 04:00 06/10/21 06:00 Temperature 36.2 C L Pulse Rate 77 71 63 Respiratory Rate 16 Blood Pressure 104/79 Pulse Oximetry 100 06/10/21 08:00 Temperature 36.8 C Pulse Rate 79 Respiratory Rate 18 Blood Pressure 108/82 Pulse Oximetry 100 Intake/Output Intake/Output: Intake & Output 06/07/21 06/08/21 06/09/21 06/10/21 23:59 23:59 23:59 23:59 Intake Total 1500 1180 784 Balance 1500 1180 784 Meds/Results Medications: Active Medications Generic Name Dose Route Start Last Admin Trade Name Freq PRN Reason Stop Dose Admin Acetaminophen 650 mg 06/10/21 02:40 06/10/21 02:58 Acetaminophen 325 Mg Tablet PO 650 mg Q6H PRN Administration Mild Pain (1-3) or Fever Enoxaparin Sodium 45 mg 06/09/21 21:00 06/10/21 08:10 Enoxaparin 60 Mg/0.6 Ml Syringe SUB-Q 45 mg Q12HR CHASIDY Administration Gabapentin 1,200 mg 06/09/21 09:00 06/10/21 08:10 Gabapentin 400 Mg Capsule PO 07/09/21 09:01 1,200 mg TID CHASIDY Administration Piperacillin/Tazobactam/Dextrose 3.375 gm in 50 mls @ 100 mls/hr 06/09/21 06:00 06/10/21 06:51 Zosyn 3.375 Gm/D5w 50ml Pm IVPB Infused Q6H CHASIDY Infusion Vancomycin HCl 750 mg in 250 mls @ 250 mls/hr 06/09/21 05:00 06/10/21 06:50 Vancomycin 750 Mg/D5w 250 Ml IVPB 250 mls/hr Q12H CHASIDY Administration Lorazepam 1 mg 06/09/21 04:15 06/10/21 06:48 Lorazepam (*Crx) 1 Mg Tablet PO 1 mg BID PRN Administration Anxiety Pantoprazole Sodium 40 mg 06/10/21 09:00 06/10/21 08:12 Pantoprazole Sodium Iv 40 Mg Vial IV PUSH 40 mg QAM CHASIDY Administration Radiology Results: ITS Impressions Head CT 06/08/21 15:54 IMPRESSION: 1. No acute intracranial pathology. Head/Neck CTA 06/08/21 19:23 IMPRESSION: 1. 0% stenosis of the left and right carotid bulbs relative to normal distal artery lumen diameter (NASCET criteria). 2. Normal cerebral CT angiogram. 3. 8 mm groundglass nodule at the right apex which is new since 06/01/2021 consistent with an infectious/inflammatory etiology noncontrast chest CT. Chest X-Ray 06/08/21 20:35 IMPRESSION: 1. No acute cardiopulmonary disease. Cervical Spine CT 06/08/21 22:01 IMPRESSION: 1. Mild spondylosis throughout the cervical, thoracic and lumbar spine. No acute osseous abnormality, abnormally enhancing lesions or epidural abscess throughout the central canal. 2. Suggestion of pulmonary infarct within the pulmonary arteries supplying the posterior basilar segment of the right lower lobe where there is a small cavitary lesion at the site of prior groundglass opacity on the CT from one week prior suggesting evolution of a region of pulmonary infarct. 3. Extensive edematous wall thickening of the colon and additional loops of small bowel at the visualized abdomen and pelvis consistent with enterocolitis most likely either infectious or inflammatory in etiology. 4. Small regions of significantly decreased parenchymal enhancement at the lower pole of the right kidney suspicious for renal infarcts with differential including pyelonephritis. 5. Although both findings were discussed with Dr. Low at 10:25 PM. 6. Mild esophageal wall thickening which could be related to esophagitis this could be due to reflux or other infectious or inflammatory etiologies. Thoracic/Lumbar Spine CT 06/08/21 22:01
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
[2021-06-10] MEDS: HYDROcodone/acetaminophen (*CRX) 5-325 MG TABLET 1 TAB PO (16:41)
[2021-06-10] MEDS: PROMETHAZINE HCL 25 MG TABLET PO (16:41)
[2021-06-10 17:08] LABS: Vancomycin Trough 9.4 ug/mL (10.0-20.0)
--- NOTE | 2021-06-10 17:42 | PM.IMPN ---
Progress Note: A&P Assessment and Plan (1) Syncope: Code(s): R55 - Syncope and collapse Status: Acute Assessment and Plan: Per the ED note, patient reported that she has felt, weak, dizzy, and unwell for the past few days and she awoke on the floor on the day of admission. She did not remember how she got there. She had brain CT that showed no acute intracranial abnormalities. CTA head/neck also showing no acute findings with 0% stenosis of the left and right carotid bulbs and overall normal cerebral CT angiogram. Patient was sent to [facility] on 06/01 from the ED after she had a central line inadvertently placed in the right carotid artery requiring surgical repair. Brain MRI showing no acute findings. Echo ordered and is pending. (2) Lower extremity weakness: Code(s): R29.898 - Other symptoms and signs involving the musculoskeletal system Status: Acute Assessment and Plan: Patient presented with generalized weakness but more lower extremity weakness. CT of C/T/L spine showing mild spondylosis throughout the cervical, thoracic and lumbar spine. No acute osseous abnormality, abnormally enhancing lesions or epidural abscess throughout the central canal. MRI of the Brain and C/T/L spine showing no acute process. No obvious etiology to explain her LE weakness. Reflexes present but consider GBS. Neurology consulted and following. Continue to monitor. Continue PT/OT. Bed available and awaiting for bed assignment. (3) Enterocolitis: Code(s): K52.9 - Noninfective gastroenteritis and colitis, unspecified Status: Acute Assessment and Plan: CT of the spine showing extensive edematous wall thickening of the colon and additional loops of small bowel at the visualized abdomen and pelvis consistent with enterocolitis most likely either infectious or inflammatory in etiology. Now with abd pain. She has had a hx of partial SBO and enteroclitis possibly IBS. Stool O&P negative in March 2021. Zosyn started here. Dedicated CT A/P pending. Don't see any colonoscopy or EGD performed here. Check IBD panel. GI consulted (4) Pulmonary infarction: Code(s): I26.99 - Other pulmonary embolism without acute cor pulmonale Status: Acute Assessment and Plan: CT of spine also showing a suggestion of pulmonary infarct within the pulmonary arteries supplying the posterior basilar segment of the right lower lobe where there is a small cavitary lesion at the site of prior groundglass opacity on the CT from one week prior suggesting evolution of a region of pulmonary infarct. She is not on anti-coagulation. She has a hx of DVT/PE. She is not tachycardic or hypoxic. Dopplers of the LE negative. Continue Lovenox for anticoagulation given this evolution of pulmonary infarct. CTA chest pending. (5) Ground glass opacity present on imaging of lung: Code(s): R91.8 - Other nonspecific abnormal finding of lung field Status: Acute Assessment and Plan: CXR clear on admission. CT showing a 8 mm groundglass nodule at the right apex which is new since 06/01/2021 consistent with an infectious/inflammatory etiology. Consider septic emboli. Currently on Zosyn and Vanco. Anticoagulation started. CTA chest pending (6) Renal infarction: Code(s): N28.0 - Ischemia and infarction of kidney Status: Acute Assessment and Plan: CT scan also showing small regions of significantly decreased parenchymal enhancement at the lower pole of the right kidney suspicious for renal infarcts with differential including pyelonephritis. Consider septic emboli. UA and Cx ordered. She is on abx. CT A/P pending (7) Polysubstance abuse: Code(s): F19.10 - Other psychoactive substance abuse, uncomplicated Status: Acute Assessment and Plan: Patient has a history of IV drug abuse. Consider septic emboli causing these imaging findings. No paraspinal abscess by MRI. Echocardiogram ordered.
[2021-06-11] VITALS: BP 93/61; PULSE 97; PULSE 99; RESP 16; TEMP 36.3; O2SAT 98
--- NOTE | 2021-06-11 00:56 | PC.NURSE ---
Unable to perform full physical assessment, pt just wanted to rest and refused. Pt was drowsy and difficult to arouse previously around 2300, but is arousable now with a flat affect.
--- NOTE | 2021-06-17 06:42 | PM.TDS ---
Transfer Discharge Sum: Prov Provider Date of admission: 06/08/21 23:29 Primary care physician: tommy nye Admitting clinician: Man Aldridge MD Consults: 06/08/21 23:30 Consult to Physician Routine Comment: Consulting Provider: Jhony Howard Reason for consultation: difficulty walking Has provider been notified: Yes 06/09/21 16:50 Consult to Physician Routine Comment: called exchange with consult information Consulting Provider: Edi Harris train caller/MD group to consult: GI Reason for consultation: enterocolitis Has provider been notified: Yes Discharging clinician: Alejo Taveras DS: Admitting Diagnosis Admitting Diagnosis Syncope DS: Discharge Diagnosis Discharge Diagnosis (1) Syncope: Code(s): R55 - Syncope and collapse Status: Acute Assessment and Plan: Per the ED note, patient reported that she has felt, weak, dizzy, and unwell for the past few days and she awoke on the floor on the day of admission. She did not remember how she got there. She had brain CT that showed no acute intracranial abnormalities. CTA head/neck also showing no acute findings with 0% stenosis of the left and right carotid bulbs and overall normal cerebral CT angiogram. Patient was sent to [facility] on 06/01 from the ED after she had a central line inadvertently placed in the right carotid artery requiring surgical repair. Brain MRI showing no acute findings. Echo ordered but not able to be performed before transfer (2) Lower extremity weakness: Code(s): R29.898 - Other symptoms and signs involving the musculoskeletal system Status: Acute Assessment and Plan: Patient presented with generalized weakness but more lower extremity weakness. CT of C/T/L spine showing mild spondylosis throughout the cervical, thoracic and lumbar spine. No acute osseous abnormality, abnormally enhancing lesions or epidural abscess throughout the central canal. MRI of the Brain and C/T/L spine showing no acute process. No obvious etiology to explain her LE weakness. Reflexes present but consider GBS. Neurology consulted and following. PT/OT ordered. Patient transferred to high level of care (3) Enterocolitis: Code(s): K52.9 - Noninfective gastroenteritis and colitis, unspecified Status: Acute Assessment and Plan: CT of the spine showing extensive edematous wall thickening of the colon and additional loops of small bowel at the visualized abdomen and pelvis consistent with enterocolitis most likely either infectious or inflammatory in etiology. She does have abd pain. She has had a hx of partial SBO and enterocolitis possibly IBD. Stool O&P negative in March 2021. Zosyn started here. Dedicated CT A/P ordered. Don't see any colonoscopy or EGD performed here. IBD panel ordered. GI was consulted (4) Pulmonary infarction: Code(s): I26.99 - Other pulmonary embolism without acute cor pulmonale Status: Acute Assessment and Plan: CT of spine also showing a suggestion of pulmonary infarct within the pulmonary arteries supplying the posterior basilar segment of the right lower lobe where there is a small cavitary lesion at the site of prior groundglass opacity on the CT from one week prior suggesting evolution of a region of pulmonary infarct. She is not on anti-coagulation. She has a hx of DVT/PE. She is not tachycardic or hypoxic. Dopplers of the LE negative. Treated with Lovenox for anticoagulation given this evolution of pulmonary infarct. CTA chest ordered but not completed prior to discharge. COVID negative. (5) Ground glass opacity present on imaging of lung: Code(s): R91.8 - Other nonspecific abnormal finding of lung field Status: Acute Assessment and Plan: CXR clear on admission. CT showing a 8 mm groundglass nodule at the right apex which is new since 06/01/2021 consistent with an infectious/inflammatory etiology. Consider septic emboli
== END 2021-06-11 00:58 ==
LOC: ANHED 20:27 → ANHIMU 06-09 01:52
PROVIDERS: Emergency Medicine; Admitting Provider Internal Medicine; Emergency Provider General Practice; Visit Provider Internal Medicine
DX: R55 Syncope and collapse (principal); R29.898 Other symptoms and signs involving the musculoskeletal system; K52.9 Noninfective gastroenteritis and colitis, unspecified; I26.99 Other pulmonary embolism without acute cor pulmonale; R91.8 Other nonspecific abnormal finding of lung field; N28.0 Ischemia and infarction of kidney; F19.10 Other psychoactive substance abuse, uncomplicated; F31.9 Bipolar disorder, unspecified; K20.90 Esophagitis, unspecified without bleeding; R53.1 Weakness; G35 Multiple sclerosis; M79.7 Fibromyalgia; I65.23 Occlusion and stenosis of bilateral carotid arteries; D64.9 Anemia, unspecified; M47.812 Spondylosis without myelopathy or radiculopathy, cervical region; M47.814 Spondylosis without myelopathy or radiculopathy, thoracic region; M47.816 Spondylosis without myelopathy or radiculopathy, lumbar region; F41.9 Anxiety disorder, unspecified; Z20.822 Contact with and (suspected) exposure to COVID-19; Z86.711 Personal history of pulmonary embolism; Z86.718 Personal history of other venous thrombosis and embolism; Z91.5 Personal history of self-harm; F17.210 Nicotine dependence, cigarettes, uncomplicated
CPT/HCPCS: 36415; 70450; 70496; 70498; 70551; 71045; 72126; 72129; 72132; 72141; 72146; 72148; 80048; 80076; 80202; 83735; 84100; 84702; 84703; 85025; 85610; 85652; 85730; 86140; 87040; 89055; 93005; 93880; 93970; 96361; 96365; 96366; 96367; 96372; 96375; 99285; A9270; C9113; C9803; G0378; J1650; J2543; J3370; J7030; J7040; Q9967; U0003; U0005

== ENCOUNTER 2021-07-26 15:13 | Outpatient (RCR) | payer OTHER, SELFPAY ==
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
--- NOTE | 2021-09-20 14:44 | PCPTNOTE ---
09/20/21 - patient has not been to therapy in over a month. she has cancelled/rescheduled/no-showed nearly every appointment made. as of this date, she will be dc'd from skilled PT services and all progress towards goals will be taken from her most recent evaluation/note. JAVIER
== END 2021-08-03 09:00 | disposition home or self-care (01) ==
LOC: CHSPT 15:13
PROVIDERS: PCP Internal Medicine
DX: G35 Multiple sclerosis (principal)
CPT/HCPCS: 97110; 97162

== ENCOUNTER 2021-08-04 21:48 | Emergency (ER) | payer OTHER, SELFPAY ==
--- NOTE | ~2021-08-04 | XR_ITS ---
EXAMINATION: XR chest 1V portable EXAM DATE: 08/04/2021 22:08 INDICATION: Chest discomfort/pain @ center of chest today. TECHNIQUE: Portable AP frontal chest x-ray was obtained. Comparison is made to prior examination from 06/08/2021. FINDINGS: The lungs are clear. There are no pleural effusions. The cardiomediastinal silhouette is within normal limits. There is no pneumothorax suspected. The bones and soft tissues are unremarkab le. There are cholecystectomy clips. IMPRESSION: No acute cardiopulmonary findings. Reviewed, dictated and finalized at location G.
[2021-08-04 22:02] VITALS: BP 125/94; PULSE 104; RESP 20; TEMP 36.4; O2SAT 97
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
[2021-08-04 22:14] VITALS: BP 124/94; PULSE 104; RESP 20; TEMP 36.4; O2SAT 99
== END 2021-08-04 22:17 | disposition home or self-care (01) ==
PROVIDERS: Emergency Provider Emergency Medicine
DX: T50.901A Poisoning by unspecified drugs, medicaments and biological substances, accidental (unintentional), initial encounter (principal)
CPT/HCPCS: 71045; 99282; 99283

== ENCOUNTER 2021-10-16 12:48 | Emergency (ER) | payer OTHER, SELFPAY ==
[2021-10-16 12:48] VITALS: BP 116/80; PULSE 95; RESP 20; TEMP 36.9; O2SAT 99
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
[2021-10-16] MEDS: MORPHINE SULFATE (*CRX) 4 MG/ML INJ IM (13:20)
[2021-10-16] MEDS: GABAPENTIN 300 MG CAPSULE 1200 MG PO (13:20)
--- NOTE | 2021-10-16 13:50 | PC.NURSE ---
pt resting quietly in room until someone enters. pt refused iv access, refused to urinate, and had refused lab draws on 2 separate occassions.
== END 2021-10-16 15:01 | disposition home or self-care (01) ==
PROVIDERS: Emergency Provider Emergency Medicine
DX: G35 Multiple sclerosis (principal); G89.29 Other chronic pain; R29.898 Other symptoms and signs involving the musculoskeletal system
CPT/HCPCS: 96372; 99283; A9270; J2270

== ENCOUNTER 2021-11-12 15:17 | Emergency (ER) | payer OTHER, SELFPAY ==
[2021-11-12 15:15] VITALS: BP 118/75; PULSE 134; RESP 25; TEMP 36.6; O2SAT 99
--- NOTE | 2021-11-12 15:25 | PC.NURSE ---
Pt not cooperating. refusing to get out of clothes. yelling at staff. stating I will not get an IV!!
--- NOTE | 2021-11-12 15:46 | PC.NURSE ---
Marti called and stated that the pt eloped from a doctor appt on the Oct, only to return on the night of the . unknown where the pt was for that time period
--- NOTE | 2021-11-12 16:10 | ED.GENADULT ---
HPI - General Adult General Chief complaint: Overdose Stated complaint: UNRESPONSIVE/RESPONSIVE Time Seen by Provider: 11/12/21 15:42 Source: patient, EMS and RN notes reviewed Limitations: no limitations History of Present Illness HPI narrative: 40-year-old female with history of psychiatric illness, MS and substance abuse presenting to the emergency department for evaluation of not feeling well and for being found unresponsive but improved with Narcan. Patient lives at a long-term facility for her MS. Patient left the facility on the and did not return until the . Patient states at that time she was at her house and was using methamphetamine and fentanyl. Patient states she did have to be treated with Narcan at home due to an accidental overdose. Patient states that she has suspected COVID exposure. Patient has had COVID previously but is not vaccinated to COVID. Patient was found to be somewhat unresponsive at the facility today and EMS was called and patient was treated with Narcan. EMS states that in response to the Narcan patient did become more alert and combative. Patient does admit to using fentanyl a few days ago but denies any use of opiates today. Related Data Home Medications Medication Instructions Recorded Confirmed gabapentin 1,200 mg PO TID 05/02/21 10/16/21 lorazepam [Ativan] 1 mg PO BID PRN 05/02/21 10/16/21 Allergies Allergy/AdvReac Type Severity Reaction Status Date / Time hydroxyzine Allergy Severe Anaphylactic Verified 11/12/21 15:20 Shock trazodone Allergy Intermediate hives, Verified 11/12/21 15:20 breathing, makes her mean! propoxyphene Allergy Mild N/V, hives Verified 11/12/21 15:20 buspirone Allergy Unknown Difficulty Verified 11/12/21 15:20 Breathing celecoxib Allergy Unknown hives, n/v Verified 11/12/21 15:20 erythromycin base Allergy Unknown Unknown Verified 11/12/21 15:20 haloperidol Allergy Unknown Unknown Verified 11/12/21 15:20 ibuprofen Allergy Unknown Rash Verified 11/12/21 15:20 ketorolac Allergy Unknown Rash Verified 11/12/21 15:20 latex Allergy Unknown Unknown Verified 11/12/21 15:20 levetiracetam Allergy Unknown rash Verified 11/12/21 15:20 (moderate) metaxalone Allergy Unknown break out, Verified 11/12/21 15:20 cannot breathe nalbuphine Allergy Unknown Rash Verified 11/12/21 15:20 naproxen Allergy Unknown Rash Verified 11/12/21 15:20 NSAIDS (Non-Steroidal Allergy Unknown Rash Verified 11/12/21 15:20 Anti-Inflamma risperidone Allergy Unknown Confusion Verified 11/12/21 15:20 (moderate) sulfamethizole Allergy Unknown yeast Verified 11/12/21 15:20 infection (mild) sumatriptan Allergy Unknown hives Verified 11/12/21 15:20 tramadol Allergy Unknown Unknown Verified 11/12/21 15:20 trimethoprim Allergy Unknown yeast Verified 11/12/21 15:20 infection (mild) erythrosine sodium Allergy Hives Verified 11/12/21 15:20 Sulfa (Sulfonamide Allergy Hives Verified 11/12/21 15:20 Antibiotics) diclofenac AdvReac Mild GI UPSET Verified 11/12/21 15:20 lisinopril AdvReac Mild COUGHING Verified 11/12/21 15:20 cyclobenzaprine AdvReac Unknown Dizziness Verified 11/12/21 15:20 divalproex sodium AdvReac Unknown Discomfort Verified 11/12/21 15:20 Review of Systems Review of Systems: CONSTITUTIONAL: Denies fever, chills, or sweats. Does report generalized fatigue EYES: Denies visual changes, redness, or discharge. ENT: Denies rhinorrhea, congestion, sore throat, or otalgia. CARDIOVASCULAR: Denies chest pain, palpitations, or edema. RESPIRATORY: Patient has cough and wheeze but denies any shortness of breath. GASTROINTESTINAL: Denies abdominal pain, nausea, vomiting, or diarrhea. GENITOURINARY: Denies dysuria or hematuria. SKIN: Denies rash or itching. MUSCULOSKELETAL: Denies back pain, joint pain, or myalgia. NEUROLOGIC: Denies headache, numbness, or weakness. PSYCHIATRIC: Denies any current suicidal ideation.
[2021-11-12 16:44] LABS: Basophils Percent Auto 0.3 % (0.2-1.2); Eosinophils Percent Auto 0.4 % (0-4.4); Hematocrit 32.1 % (37.0-47.0); Hemoglobin 10.5 g/dL (12.0-15.0); Immature Granulocyte Absolute 0.03 K/mm3 (0.00-0.031); Immature Granulocyte Percent A 0.4 % (0-0.5); Lymphocytes Percent Auto 7.6 % (18.3-44.2); Mean Corpuscular HGB Conc 32.7 g/dl (32-36); Mean Corpuscular Hemoglobin 28.1 pg (26-34); Mean Corpuscular Volume 85.8 fl (80-100); Mean Platelet Volume 8.7 fl (7.4-10.4); Monocytes Absolute Auto 0.6 K/mm3 (0.1-0.6); Monocytes Percent Auto 7.6 % (2.6-8.5); Neutrophils Absolute Auto 6.6 K/mm3 (1.3-6.7); Neutrophils Percent Auto 83.7 % (45.5-73.1); Platelet Count Result 190 k/mm3 (150-375); Red Blood Count 3.74 M/mm3 (4.2-5.4); Red Cell Distribution Width 15.2 % (11.5-14.5); White Blood Count 7.9 K/mm3 (4.5-10.0)
[2021-11-12 16:59] LABS: Alanine Aminotransferase 559 U/L (4-35); Albumin Level 4.3 g/dL (3.5-5.1); Alkaline Phosphatase 376 U/L (38-126); Anion Gap 9 mmol/L (8-16); Bilirubin,Total 0.7 mg/dL (0.2-1.3); Blood Urea Nitrogen 12 mg/dL (7-17); Calcium 9.2 mg/dL (8.4-10.2); Carbon Dioxide 24 mmol/L (22-30); Chloride 102 mmol/L (98-107); Estimated CRCL calculation 117 ml/min; Estimated Glomerular Filt Rate > 60; Glucose 106 mg/dL (65-110); Potassium 3.5 mmol/L (3.4-5.0); Sodium 135 mmol/L (137-145)
[2021-11-12 17:18] LABS: Aspartate Amino Transferase 1568 U/L (14-36)
[2021-11-12 17:24] LABS: Influenza A QL RT-PCR Negative (Negative); Influenza B QL RT-PCR Negative (Negative); SARS-CoV-2 RNA PCR Negative
[2021-11-12 17:30] VITALS: O2SAT 99
[2021-11-12] MEDS: SODIUM CHLORIDE 0.9% IV 1,000 ML 999 ML IV CONT ×2 (17:31→18:04)
[2021-11-12 18:04] VITALS: BP 110/86; PULSE 104; RESP 17; O2SAT 99
[2021-11-12] MEDS: AMOXICILLIN/CLAVULANATE K 875-125 MG TAB 1 TABLET PO (18:04)
--- NOTE | 2021-11-12 18:44 | PC.NURSE ---
[facility] accepted return to [facility] 1999 trip #[id number]
[2021-11-12 19:14] VITALS: PULSE 98; RESP 17
[2021-11-12] MEDS: ALBUTEROL SULFATE NEB 2.5 MG/0.5 ML INH 5 MG INHALATION (19:14)
[2021-11-12 19:20] VITALS: PULSE 103; RESP 19
[2021-11-12] MEDS: PROCHLORPERAZINE EDISYLATE 10 MG/2 ML VIAL IV PUSH (21:34)
[2021-11-12 21:36] VITALS: BP 124/71; PULSE 110; RESP 22; O2SAT 95
== END 2021-11-12 21:41 ==
PROVIDERS: Emergency Provider Emergency Medicine
DX: J02.0 Streptococcal pharyngitis (principal); G35 Multiple sclerosis; Z20.822 Contact with and (suspected) exposure to COVID-19; F15.10 Other stimulant abuse, uncomplicated; F11.10 Opioid abuse, uncomplicated; D64.9 Anemia, unspecified; M79.7 Fibromyalgia; F41.9 Anxiety disorder, unspecified; F31.9 Bipolar disorder, unspecified; Z86.16 Personal history of COVID-19; Z86.718 Personal history of other venous thrombosis and embolism; Z86.711 Personal history of pulmonary embolism; F17.210 Nicotine dependence, cigarettes, uncomplicated
CPT/HCPCS: 36415; 80053; 85025; 87502; 87880; 94640; 96361; 96374; 96375; 99284; A9270; C9803; J0780; J7030; U0003; U0005

== ENCOUNTER 2021-11-16 19:16 | Emergency (ER) | payer OTHER, SELFPAY ==
--- NOTE | ~2021-11-16 | XR_ITS ---
EXAMINATION: XR chest 1V portable DATE: 11/16/2021 20:19 INDICATION: Transient alteration of awareness. TECHNIQUE: A single frontal view of the chest was obtained. COMPARISON: Chest single view 08/04/2021 FINDINGS: The lung volumes are small. There is mild atelectasis at left lung base. No pleural effusio n or pneumothorax. The heart size is normal. Surgical clips in the right upper quadrant are likely fr om cholecystectomy. IMPRESSION: 1. Small lung volumes with mild atelectasis at left lung base. Reviewed, dictated and finalized at location A. [employer]
[2021-11-16 19:18] VITALS: BP 123/70; PULSE 136; RESP 24; TEMP 36.7; O2SAT 98
--- NOTE | 2021-11-16 19:26 | ECG_ITS ---
Measurements Intervals [place] Rate: 115 P: 56 [place]: 116 QRS: 38 QRSD: 73 T: 34 QT: 316 QTc: 437 Interpretive Statements SINUS TACHYCARDIA WITH SHORT [place] INTERVAL POSSIBLE LEFT ATRIAL ENLARGEMENT BASELINE WANDER- I, II, III, V6 ABNORMAL ECG Electronically Signed On 11-17-2021 6:06:43 [employer] by Hilton Madden D.O.
[2021-11-16 19:28] VITALS: RESP 20
[2021-11-16 19:43] LABS: Glucose Point of Care 98 mg/dl (65-105)
[2021-11-16 21:14] VITALS: BP 107/70; PULSE 90; RESP 15; O2SAT 99
--- NOTE | 2021-11-16 21:14 | PC.NURSE ---
Pt states she does not want to be seen, not wanting any further test, declining any treatment. 

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
--- NOTE | 2021-11-16 21:54 | PC.NURSE ---
called [facility] to request transport. ETA [id number]
[2021-11-16 21:55] VITALS: BP 114/70; PULSE 90; RESP 19; O2SAT 96
--- NOTE | 2021-11-16 21:56 | PC.NURSE ---
Pt seen by EDP and declined eval - wishes to sign out AMA, paperwork signed at this time.
--- NOTE | 2021-11-16 23:47 | PC.NURSE ---
called [facility] for ETA update. ETA 15 minutes
== END 2021-11-17 00:18 | disposition left against medical advice (07) ==
PROVIDERS: Emergency Provider General Practice
DX: T40.2X1A Poisoning by other opioids, accidental (unintentional), initial encounter (principal); D64.9 Anemia, unspecified; F41.9 Anxiety disorder, unspecified; F31.9 Bipolar disorder, unspecified; M79.7 Fibromyalgia; G35 Multiple sclerosis; R00.0 Tachycardia, unspecified
CPT/HCPCS: 71045; 82948; 93005; 99284

== ENCOUNTER 2021-12-12 08:29 | Emergency (ER) | payer OTHER, SELFPAY ==
[2021-12-12 08:31] VITALS: BP 116/59; PULSE 89; RESP 18; TEMP 36.5; O2SAT 97
[2021-12-12] MEDS: HYDROcodone/acetaminophen (*CRX) 5-325 MG TABLET 1 TAB PO (10:12)
[2021-12-12] MEDS: diazePAM (*CRX) 5 MG TABLET PO (10:13)
[2021-12-12 10:20] VITALS: BP 103/72; PULSE 99; RESP 14; O2SAT 97
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
[2021-12-12 10:42] VITALS: BP 130/80; PULSE 88; RESP 19; O2SAT 97
== END 2021-12-12 10:42 | disposition home or self-care (01) ==
PROVIDERS: Emergency Provider Emergency Medicine
DX: M79.605 Pain in left leg (principal); M79.604 Pain in right leg; G35 Multiple sclerosis; M79.7 Fibromyalgia; F41.9 Anxiety disorder, unspecified; F31.9 Bipolar disorder, unspecified; Z86.16 Personal history of COVID-19; Z86.718 Personal history of other venous thrombosis and embolism; Z86.711 Personal history of pulmonary embolism; F17.220 Nicotine dependence, chewing tobacco, uncomplicated
CPT/HCPCS: 99283; A9270